=== PATIENT | male | born 1955 | race Caucasian/White ===

== ENCOUNTER 2016-11-09 13:03 | Emergency (ER) | payer OTHER ==
[~2016-11-09] VITALS: Ht 177.8 cm; Wt 113.4 kg
[~2016-11-09 13:03] MED LIST: ADVAIR 250/501 EA PO; ANAPROX DS550 MG PO; ASPIRIN81 M1 PO; ATENOLOL50 MG PO; ATIVAN1 MG PO; CARDIZEM CD240 MG PO; CIPRO500 MG PO; CLINDAMYCIN150 MG PO; DELTASONE5 MG PO; DILTIAZEM 24HR360 MG PO; DULE1ARO1 INH; DULERA100 INH; EFFIENT10 M1 PO; FLONASE 0.05% 121 EA NAS; HYDROCODONE BIT1 T11 PO; KEFLEX500 MG PO; LASIX40 MG PO; LEXAPRO10 MG PO; LEXAPRO20 MG PO; NEXIUM40 MG PO; NORCO 7.5-3251 EACH PO; PLAVIX75 M1 PO; PRAVACHOL80 M1 PO; QUINAPRIL40 MG PO; RANEXA500 M1 PO; SYMBICORT1 AE1 INH; TOPROL XL50 M1 PO; VENTOLIN H0.09 MG/AC INH; VICO75300 PO; VICODIN ES 7.51 EACH PO; ZITHROMAX Z PA250 MG PO
[2016-11-09 13:26] LABS: BASO # 0.1 10*3/uL (0.0-0.1); BASO % 1.1 % (0.0-1.0); EOS # 0.2 10*3/uL (0.0-0.4); EOS % 3.8 % (1.0-4.0); HEMATOCRIT 37.4 % (42.0-52.0); HEMOGLOBIN 12.4 g/dl (14.0-18.0); LYMPH # 2.1 10*3/uL (1.3-4.4); LYMPH % 34.1 % (27.0-41.0); MEAN CELL VOLUME 92.8 fl (80.0-94.0); MEAN CORPUSCULAR HGB 30.8 pg (27.0-31.0); MEAN CORPUSCULAR HGB CONC 33.2 g/dl (33.0-37.0); MONO # 0.4 10*3/uL (0.1-1.0); MONO % 6.7 % (3.0-9.0); NEUT # 3.4 10*3/uL (2.3-7.9); NEUT % 53.7 % (47.0-73.0); PLATELET COUNT AUTOMATED 258 10*3/uL (130-400); RED BLOOD COUNT 4.03 10*6/uL (4.50-5.90); RED CELL DISTRI WIDTH 13.3 % (0-14.5); WHITE BLOOD COUNT 6.3 10*3/uL (4.8-10.8)
[2016-11-09 13:35] LABS: INTERNATIONAL NORM RATIO 0.9 (2.0-3.5); PROTHROMBIN TIME 9.9 SECONDS (9.0-12.4)
[2016-11-09 13:37] LABS: BUN 27 mg/dl (7-24); CARBON DIOXIDE 28 mmol/L (21-32); CHLORIDE 105 mmol/L (98-107); EST GLOM FILT AFRICAN AMERICAN > 60 ml/min; GLUCOSE 201 mg/dL (65-99); POTASSIUM 3.6 mmol/L (3.5-5.1); SODIUM 142 mmol/L (136-145)
[2016-11-09 14:14] VITALS: BP 118/71
== END 2016-11-09 16:20 | disposition short-term general hospital (02) ==
LOC: ED 13:03
PROVIDERS: Emergency Medicine
DX: S06.5X0A Traumatic subdural hemorrhage without loss of consciousness, initial encounter (principal); S01.01XA Laceration without foreign body of scalp, initial encounter; I25.10 Atherosclerotic heart disease of native coronary artery without angina pectoris; I50.9 Heart failure, unspecified; J44.9 Chronic obstructive pulmonary disease, unspecified; J45.909 Unspecified asthma, uncomplicated; G93.41 Metabolic encephalopathy; W18.39XA Other fall on same level, initial encounter; Z88.0 Allergy status to penicillin; Z88.6 Allergy status to analgesic agent; Z88.1 Allergy status to other antibiotic agents; Z79.82 Long term (current) use of aspirin; Z79.899 Other long term (current) drug therapy; Y93.89 Activity, other specified; Y92.89 Other specified places as the place of occurrence of the external cause; Y99.8 Other external cause status

== ENCOUNTER 2016-12-27 13:17 | Inpatient (IN) | payer OTHER ==
[~2016-12-27] VITALS: Ht 177.8 cm; Wt 114.1 kg
--- NOTE | ~2016-12-27 | CON ---
[place], [place] REPORT OF CONSULTATION NAME: MARKBIMAL Godoy UNIT #: [id number] ROOM: [facility] DOCTOR: CASSIE RICHMOND MD, FACC BIRTHDATE: [birth year] DOS: 12/27/2016 CARDIOLOGY CONSULTATION HISTORY OF PRESENT ILLNESS: The patient went to Dr. Koroma' office with progressive increasing recurrent chest pain for more than 10 days, and the patient has a history of coronary artery disease, coronary intervention; hypertension with stage 2 to stage 3 chronic kidney disease, and started IV fluids on him, and the patient appears to have non-Q-wave myocardial infarction with progressive increase in troponin marginally and angina occurred even this morning. The patient is optimally medicated, and the patient has history of myocardial infarction in the past, coronary intervention and troponin 0.182, repeat also is elevated. No syncope, no history of stroke. PHYSICAL EXAMINATION: VITAL SIGNS: The patient is afebrile. Blood pressure is 138/86, respiratory rate is 16, pulse is 86. GENERAL: Ambulating well. No chest discomfort at this time. He appears to be stabilized. Skin warm, not diaphoretic. NECK: No jugular venous distension. Neck is supple. LUNGS: Diminished breath sounds at bases. HEART: S1, S2 regular. ABDOMEN: Soft. SKIN: Color is good. Not diaphoretic. EXTREMITIES: No cyanosis. NEUROLOGIC: No focal neurological deficits noted. RECTAL AND GENITAL: Deferred. Unrelated. LABORATORY DATA: WBC , hemoglobin 14.3. Electrolytes are normal. Creatinine is 1.54, BUN is 25. GFR is 46, moderately diminished. Troponin is still remaining high. IMPRESSION: Crescendo angina, non-ST elevation myocardial infarction, chronic kidney disease. PLAN: Coronary arteriography, possible revascularization. Start the IV fluids and the patient to be on beta blocking agent and Plavix and baby aspirin and pravastatin. We will continue Mucomyst to reduce the contrast-induced nephropathy. Options, procedures, complications, morbidity, mortality, and risks were explained to the patient and the family. [place], [place] REPORT OF CONSULTATION NAME: BIMAL FLORES UNIT #: [id number] ROOM: [facility] DOCTOR: CASSIE RICHMOND MD, FACC BIRTHDATE: [birth year] CASSIE RICHMOND MD CM:CONSTR:REPORT OF CONSULTATION 27 12/30/161919 interface KEVIN KOROMA MD
--- NOTE | ~2016-12-27 | EKG ---
[place], [place] ELECTROCARDIOGRAM REPORT NAME: BIMAL FLORES UNIT #: [id number] ROOM: [facility] DOCTOR: YI ISIDRO [facility],CASSIE BIRTHDATE: [birth year] DOS: 12/27/2016 TIME: 1902 CONCLUSION: 1. Sinus tachycardia. 2. Left axis. 3. Otherwise, tracing appears to be unremarkable. CASSIE RICHMOND MD CM:EKGRPT:ELECTROCARDIOGRAM REPORT [id number] CASSIE RICHMOND MD [facility]
[2016-12-27 13:30] VITALS: BP 128/78; BP 130/94
[2016-12-27] MEDS ORDERED: AMBIEN10 M1 PO (14:36)
[2016-12-27] MEDS ORDERED: CLONIDINE HCL0.1 M1 PO (14:36)
[2016-12-27] MEDS ORDERED: ZESTRIL2.5 MG PO (14:37)
[2016-12-27] MEDS ORDERED: PLAVIX75 M1 PO (14:37)
[2016-12-27] MEDS ORDERED: AMARYL4 MG PO (14:37)
[2016-12-27 15:23] LABS: BASO # 0.1 10*3/uL (0.0-0.1); EOS # 0.1 10*3/uL (0.0-0.4); EOS % 1.9 % (1.0-4.0); HEMATOCRIT 42.8 % (42.0-52.0); HEMOGLOBIN 14.3 g/dl (14.0-18.0); LYMPH # 2.5 10*3/uL (1.3-4.4); LYMPH % 34.7 % (27.0-41.0); MEAN CELL VOLUME 92.4 fl (80.0-94.0); MEAN CORPUSCULAR HGB 30.9 pg (27.0-31.0); MEAN CORPUSCULAR HGB CONC 33.4 g/dl (33.0-37.0); MEAN PLATELET VOLUME 9.8 fl (9.6-12.3); MONO # 0.6 10*3/uL (0.1-1.0); MONO % 8.6 % (3.0-9.0); NEUT # 3.9 10*3/uL (2.3-7.9); NEUT % 53.7 % (47.0-73.0); PLATELET COUNT AUTOMATED 279 10*3/uL (130-400); RED BLOOD COUNT 4.63 10*6/uL (4.50-5.90); RED CELL DISTRI WIDTH 13.4 % (0-14.5); WHITE BLOOD COUNT 7.2 10*3/uL (4.8-10.8)
[2016-12-27 15:41] LABS: POTASSIUM 4.1 mmol/L (3.5-5.1)
[2016-12-27 15:42] LABS: TROPONIN I 0.178 ng/ml (<0.045)
[2016-12-27 16:00] VITALS: BP 138/86
[2016-12-27 17:47] LABS: BILIRUBIN NEGATIVE (NEGATIVE); BLOOD NEGATIVE (NEGATIVE); CLARITY CLEAR (CLEAR); COLOR YELLOW (YELLOW); GLUCOSE NEGATIVE (NEGATIVE); KETONE NEGATIVE (NEGATIVE); LEUKO ESTERASE NEGATIVE (NEGATIVE); NITRITE NEGATIVE (NEGATIVE); PROTEIN NEGATIVE (NEGATIVE); UROBILINOGEN 0.2 E.U./dl (0.2-1.0)
[2016-12-27 18:18] LABS: RBC 0-2 rbc/hpf (0-2); URINE REFLEX COMMENT NO (NO); WBC 0-2 wbc/hpf (0-5)
[2016-12-27 20:00] VITALS: BP 111/91
[2016-12-27 21:00] VITALS: BP 123/86
[2016-12-27 22:00] VITALS: BP 114/78
[2016-12-28] VITALS: BP 101/48
[2016-12-28 01:00] VITALS: BP 98/54
[2016-12-28 02:00] VITALS: BP 84/42
[2016-12-28 03:00] VITALS: BP 92/58
[2016-12-28 04:00] VITALS: BP 89/44
[2016-12-28 04:11] LABS: BASO # 0.1 10*3/uL (0.0-0.1); BASO % 0.8 % (0.0-1.0); EOS # 0.2 10*3/uL (0.0-0.4); EOS % 3.1 % (1.0-4.0); HEMATOCRIT 38.4 % (42.0-52.0); HEMOGLOBIN 12.6 g/dl (14.0-18.0); LYMPH # 2.7 10*3/uL (1.3-4.4); LYMPH % 36.2 % (27.0-41.0); MEAN CELL VOLUME 92.8 fl (80.0-94.0); MEAN CORPUSCULAR HGB 30.4 pg (27.0-31.0); MEAN CORPUSCULAR HGB CONC 32.8 g/dl (33.0-37.0); MEAN PLATELET VOLUME 9.4 fl (9.6-12.3); MONO # 0.7 10*3/uL (0.1-1.0); MONO % 9.2 % (3.0-9.0); NEUT # 3.7 10*3/uL (2.3-7.9); NEUT % 50.2 % (47.0-73.0); PLATELET COUNT AUTOMATED 234 10*3/uL (130-400); RED BLOOD COUNT 4.14 10*6/uL (4.50-5.90); RED CELL DISTRI WIDTH 13.5 % (0-14.5); WHITE BLOOD COUNT 7.4 10*3/uL (4.8-10.8)
[2016-12-28 04:20] LABS: PROTHROMBIN TIME 10.7 SECONDS (9.0-12.4)
[2016-12-28 04:22] LABS: MAGNESIUM 2.4 mg/dL (1.5-2.1); POTASSIUM 3.7 mmol/L (3.5-5.1)
[2016-12-28 05:00] VITALS: BP 132/89
== END 2016-12-28 05:34 | disposition other institution (70) | DRG 282 ==
LOC: 5E 13:17 → ICCU 21:10
PROVIDERS: Internal Medicine; Internal Medicine Cardiovascular Disease
DX: I21.4 Non-ST elevation (NSTEMI) myocardial infarction (principal); N18.3 Chronic kidney disease, stage 3 (moderate); I12.9 Hypertensive chronic kidney disease with stage 1 through stage 4 chronic kidney disease, or unspecified chronic kidney disease; I25.119 Atherosclerotic heart disease of native coronary artery with unspecified angina pectoris; I25.2 Old myocardial infarction; Z79.899 Other long term (current) drug therapy

== ENCOUNTER 2017-01-12 13:53 | Emergency (ER) | payer OTHER ==
[~2017-01-12] VITALS: Ht 177.8 cm; Wt 113.4 kg
--- NOTE | ~2017-01-12 | EKG ---
[place], [place] ELECTROCARDIOGRAM REPORT NAME: BIMAL FLORES UNIT #: [id number] ROOM: DOCTOR: YI ISIDRO [facility],CASSIE BIRTHDATE: [birth year] DOS: 01/12/2017 TIME: 1435 CONCLUSION 1. Sinus rhythm. 2. Left anterior hemiblock. 3. Nonspecific ST changes. CASSIE RICHMOND MD CM:EKGRPT:ELECTROCARDIOGRAM REPORT [id number] CASSIE RICHMOND MD [facility]
[~2017-01-12 13:53] MED LIST changes: +AMARYL4 MG PO; +AMBIEN10 M1 PO; +CLONIDINE HCL0.1 M1 PO; +ZESTRIL2.5 MG PO
[2017-01-12 14:33] LABS: BASO # 0.1 10*3/uL (0.0-0.1); EOS # 0.2 10*3/uL (0.0-0.4); LYMPH # 2.2 10*3/uL (1.3-4.4); LYMPH % 36.1 % (27.0-41.0); MEAN CELL VOLUME 90.7 fl (80.0-94.0); MEAN CORPUSCULAR HGB CONC 34.1 g/dl (33.0-37.0); MEAN PLATELET VOLUME 9.6 fl (9.6-12.3); MONO # 0.5 10*3/uL (0.1-1.0); MONO % 8.1 % (3.0-9.0); NEUT # 3.1 10*3/uL (2.3-7.9); NEUT % 51.6 % (47.0-73.0); PLATELET COUNT AUTOMATED 292 10*3/uL (130-400); RED BLOOD COUNT 4.52 10*6/uL (4.50-5.90)
[2017-01-12 14:42] LABS: ACT PARTIAL THROMBO TIME 21.6 SECONDS (20.8-31.5); INTERNATIONAL NORM RATIO 0.9 (2.0-3.5)
[2017-01-12 14:50] LABS: ALBUMIN 3.9 gm/dl (3.1-4.5); ALKALINE PHOSPHATASE 104 U/L (45-117); BUN 19 mg/dl (7-24); CHLORIDE 101 mmol/L (98-107); CREATININE 1.31 mg/dL (0.70-1.30); MAGNESIUM 2.4 mg/dL (1.5-2.1); POTASSIUM 3.9 mmol/L (3.5-5.1); SGOT/AST 20 IU/L (3-35); SGPT/ALT 31 U/L (12-78); SODIUM 137 mmol/L (136-145)
[2017-01-12 15:15] LABS: TROPONIN I 0.149 ng/ml (<0.045)
[2017-01-12 16:51] VITALS: BP 151/82
== END 2017-01-12 17:58 | disposition short-term general hospital (02) ==
LOC: ED 13:53
PROVIDERS: Student in an Organized Health Care Education/Training Program
DX: I21.4 Non-ST elevation (NSTEMI) myocardial infarction (principal); Z88.0 Allergy status to penicillin; Z88.6 Allergy status to analgesic agent; Z88.1 Allergy status to other antibiotic agents; Z79.899 Other long term (current) drug therapy; Z79.82 Long term (current) use of aspirin

== ENCOUNTER 2017-01-24 12:03 | Emergency (ER) | payer OTHER ==
[~2017-01-24] VITALS: Ht 177.8 cm; Wt 111.1 kg
[2017-01-24 12:31] VITALS: BP 144/92
[2017-01-24 13:17] LABS: BASO % 0.7 % (0.0-1.0); EOS # 0.2 10*3/uL (0.0-0.4); EOS % 2.9 % (1.0-4.0); HEMOGLOBIN 13.7 g/dl (14.0-18.0); LYMPH % 33.3 % (27.0-41.0); MEAN CELL VOLUME 90.5 fl (80.0-94.0); MEAN CORPUSCULAR HGB 30.2 pg (27.0-31.0); MEAN CORPUSCULAR HGB CONC 33.4 g/dl (33.0-37.0); MEAN PLATELET VOLUME 9.9 fl (9.6-12.3); MONO # 0.6 10*3/uL (0.1-1.0); MONO % 9.3 % (3.0-9.0); NEUT # 3.3 10*3/uL (2.3-7.9); NEUT % 53.5 % (47.0-73.0); PLATELET COUNT AUTOMATED 300 10*3/uL (130-400); RED BLOOD COUNT 4.53 10*6/uL (4.50-5.90); WHITE BLOOD COUNT 6.1 10*3/uL (4.8-10.8)
[2017-01-24 13:29] LABS: BUN 23 mg/dl (7-24); C-REACTIVE PROTEIN 0.79 MG/DL (0-0.3); CARBON DIOXIDE 23 mmol/L (21-32); CHLORIDE 101 mmol/L (98-107); EST GLOM FILT AFRICAN AMERICAN > 60 ml/min; GLUCOSE 116 mg/dL (65-99); POTASSIUM 3.5 mmol/L (3.5-5.1); SODIUM 136 mmol/L (136-145); URIC ACID 10.4 mg/dL (3.5-7.2)
== END 2017-01-24 17:01 | disposition home or self-care (01) ==
LOC: ED 12:03
PROVIDERS: Emergency Medicine
DX: M10.9 Gout, unspecified (principal); E79.0 Hyperuricemia without signs of inflammatory arthritis and tophaceous disease; J45.909 Unspecified asthma, uncomplicated; I25.10 Atherosclerotic heart disease of native coronary artery without angina pectoris; I50.9 Heart failure, unspecified; J44.9 Chronic obstructive pulmonary disease, unspecified; Z79.82 Long term (current) use of aspirin; Z79.899 Other long term (current) drug therapy; Z88.0 Allergy status to penicillin; Z88.1 Allergy status to other antibiotic agents; Z88.6 Allergy status to analgesic agent

== ENCOUNTER 2017-02-21 14:00 | Inpatient (IN) | payer OTHER ==
[2017-02-21] VITALS (10 sets, daily range): BP systolic 80–183; BP diastolic 40–108
[~2017-02-21] VITALS: Wt 117.1 kg
--- NOTE | ~2017-02-21 | PR ---
[place], [place] PROGRESS NOTE NAME: BIMAL FLORES [facility] #: [id number] UNIT #: [id number] ROOM: 516 DOCTOR: KEVIN BALLESTEROS MD BIRTHDATE: [birth year] DOS: SUBJECTIVE: The patient is doing much better, does not have any new complaints. His pleuritic symptoms have all resolved. OBJECTIVE: VITAL SIGNS: Blood pressure is 152/82, pulse of 93, respirations 20, temperature 97.7. LUNGS: Clear. HEART: Regular. ABDOMEN: Soft, nontender. EXTREMITIES: Without any edema. ASSESSMENT AND PLAN: 1. Acute exacerbation of chronic obstructive pulmonary disease, improved and stable. We will plan to discharge the patient to home on p.o. steroids and antibiotics. 2. Coronary artery disease with slight elevation in troponins. Dr. Figueroa was informed. He was not concerned about it and did not want any further investigations performed. 3. Benign hypertension, controlled. KEVIN BALLESTEROS MD CM:PNTRANS [id number] KEVIN BALLESTEROS MD 02/23/17 1008 interface
--- NOTE | ~2017-02-21 | WRIGHTHP ---
[place], [place] PATIENT HISTORY AND PHYSICAL EXAM NAME: BIMAL FLORES [facility] #: [id number] UNIT #: [id number] ROOM: 516 DOCTOR: KEVIN BALLESTEROS MD BIRTHDATE: [birth year] DOS: 02/21/2017 HISTORY OF PRESENT ILLNESS: This patient comes in with complaints of shortness of breath and chest pain. States that he had runny nose, sinus congestion few days ago. He got a prescription for Z-NATI. He was getting better, but then developed diarrhea after the second dose and started having some increasing shortness of breath and also developed some pain when he took a deep breath, so he got worried because of his history of heart disease and decided to come into the emergency room. He denies having any fever, any chills, any recent sternal chest pains, but he did have some neck pain and jaw pain. PAST MEDICAL HISTORY: Significant for; 1. Coronary artery disease with history of stent placement. 2. History of chronic kidney disease stage 3. 3. Benign hypertension. 4. History of AICD pacemaker placement. 5. Mixed hyperlipidemia. 6. Generalized anxiety disorder. 7. Chronic low back pain. MEDICATIONS: Symbicort 160 twice a day, aspirin 81 daily, clonidine 0.1 daily, Lexapro 30 daily, Lasix 60 daily, glimepiride 4 daily, lisinopril 2.5 daily, lorazepam 1 mg q.i.d., metoprolol 50 b.i.d., potassium 20 daily, Pravachol 40 daily, Ranexa 1000 b.i.d., Brilinta 90 b.i.d., zolpidem 10 at bedtime. SOCIAL HISTORY: History of smoking about 40 years ago. PHYSICAL EXAMINATION: GENERAL: The patient is awake and alert and oriented. VITAL SIGNS: Blood pressure is 157/77, pulse of 98, respirations 20, temperature 98.2. LUNGS: Diminished breath sounds. HEART: Regular. ABDOMEN: Obese, soft, nontender. EXTREMITIES: Without any edema. ASSESSMENT AND PLAN: 1. Acute exacerbation of chronic obstructive pulmonary disease with pleuritic complaints. The patient has been admitted. IV steroids and breathing treatments and antibiotics have been ordered for acute bronchitis, 2. Coronary artery disease with slight elevation in troponin noted. Dr. Figueroa has been consulted. He was informed about the patient being admitted here yesterday. 3. Chronic renal insufficiency stage 3. Continue close followup of his kidney functions. [place], [place] PATIENT HISTORY AND PHYSICAL EXAM NAME: BIMAL FLORES Walt UNIT #: [id number] ROOM: [facility] DOCTOR: KEVIN BALLESTEROS MD BIRTHDATE: [birth year] KEVIN BALLESTEROS MD CM:HISPHYS:PATIENT HISTORY AND PHYSICAL EXAMINATION 5 4 KEVIN BALLESTEROS MD 02/22/17944 interface
--- NOTE | ~2017-02-21 | DS ---
[place], [place] DISCHARGE SUMMARY NAME: [facility]ES [id number] UNIT #: [id number] ROOM: 516 DOCTOR: KEVIN BALLESTEROS MD BIRTHDATE: [birth year] DOS: 02/23/2017 DIAGNOSES: 1. Acute exacerbation of chronic obstructive pulmonary disease. 2. Acute tracheobronchitis. 3. Elevated troponin. 4. Hypotension following nitroglycerin in the Emergency Room. 5. History of coronary artery disease. 6. History of stent placement. 7. Generalized anxiety disorder. DISCHARGE MEDICATIONS: Will be tapering dose of prednisone and doxycycline 100 b.i.d., Symbicort 160 two puffs twice daily, metoprolol 50 b.i.d., Ranexa 1000 b.i.d., aspirin 81 daily, Pravachol 40 daily, Ventolin HFA p.r.n., Lexapro 30 daily, Ativan 1 mg q.i.d. p.r.n., Lasix 40 daily, clonidine 0.1 daily, zolpidem 10 at bedtime p.r.n., glimepiride 4 mg daily, lisinopril 2.5 daily, Brilinta 90 b.i.d., potassium 20 daily. HOSPITAL COURSE: The patient is 62 years old, very well known to us complains of pleuritic complaints, cough and shortness of breath. Please see H and P for details. After admission, the patient was placed on IV steroids, breathing treatments, antibiotics. Cough and shortness of breath has improved. He did have slight elevation of CPKs, Dr. Figueroa was notified. He did not order any further treatment or suggest any further medication changes. The patient has had no complaints since admission. Since the bronchospasm has resolved, the plan is to discharge him to home today to follow up as an outpatient. KEVIN BALLESTEROS MD CM:DISCHARG [id number] KEVIN BALLESTEROS MD 02/23/17 1005 interface
[2017-02-21 14:26] LABS: BASO # 0.1 10*3/uL (0.0-0.1); BASO % 0.8 % (0.0-1.0); EOS # 0.2 10*3/uL (0.0-0.4); EOS % 2.9 % (1.0-4.0); HEMATOCRIT 42.1 % (42.0-52.0); HEMOGLOBIN 14.2 g/dl (14.0-18.0); LYMPH # 2.1 10*3/uL (1.3-4.4); MEAN CELL VOLUME 91.7 fl (80.0-94.0); MEAN CORPUSCULAR HGB 30.9 pg (27.0-31.0); MEAN CORPUSCULAR HGB CONC 33.7 g/dl (33.0-37.0); MEAN PLATELET VOLUME 9.4 fl (9.6-12.3); MONO # 0.5 10*3/uL (0.1-1.0); NEUT # 3.8 10*3/uL (2.3-7.9); PLATELET COUNT AUTOMATED 274 10*3/uL (130-400); RED BLOOD COUNT 4.59 10*6/uL (4.50-5.90); RED CELL DISTRI WIDTH 13.1 % (0-14.5); WHITE BLOOD COUNT 6.6 10*3/uL (4.8-10.8)
[2017-02-21 14:37] LABS: ACT PARTIAL THROMBO TIME 21.4 SECONDS (20.8-31.5)
--- NOTE | 2017-02-21 14:40 | NUR ---
SOON AFTER ADMINISTRATION OF NTG SL, PT'S BP DROPPED SIGNIOFICANTLY AND PT DEVLOPED PALLOR AND DIAPHORESIS AND NAUSEA. INITIAL BP SYSTOLIC WAS 180 MANUALLY AND DROPPED TO 80. BOLUS SALINE AND ZOFRAN ORDERED. BP RETURNS TO 110 SYSTOLIC NOW.
[2017-02-21 14:47] LABS: ALBUMIN 3.7 gm/dl (3.1-4.5); ALKALINE PHOSPHATASE 119 U/L (45-117); BUN 14 mg/dl (7-24); CHLORIDE 104 mmol/L (98-107); CKMB 1.2 ng/ml (0.5-3.6); CPK 99 U/L (39-308); LIPASE 174 U/L (73-393); MAGNESIUM 2.3 mg/dL (1.5-2.1); POTASSIUM 3.7 mmol/L (3.5-5.1); SGOT/AST 22 IU/L (3-35); SGPT/ALT 34 U/L (12-78); SODIUM 138 mmol/L (136-145); TOTAL PROTEIN 7.8 gm/dL (6.4-8.2)
[2017-02-21 14:52] LABS: TROPONIN I 0.341 ng/ml (<0.045)
--- NOTE | 2017-02-21 15:05 | NUR ---
PT FEELS MUCH BETTER NOW, SYSTOLIC BP 140. OTHER SYMTPKS RESOLVED.
--- NOTE | 2017-02-21 15:27 | NUR ---
PT EXPRESSES HE JUST HAD 5 MINUTES OF SHARP MIDSTERNAL PAIN, NO RESOLVED. HE DID NOT WISH TO ALERT ANYONE. THIRD REPEAT EKG NOW ORDERED.
--- NOTE | 2017-02-21 16:50 | NUR ---
A 62, admitted to 5E, under the services of KEVIN Sandoval MD with a diagnosis of COPD WITH ACUTE EXACERBATION. Chief complaint is CHEST PAIN AND SOB. Patient arrived via stretcher from ER. Monitor applied. Initial assessment completed. Vital signs taken and recorded. KEVIN SANDOVAL MD notified of admission to the unit. Orders received. See assessment for past medical history, medications and allergies. Patient and/or family oriented to unit [facility] 5E. visitation policy and Medication Reconciliation was reviewed with patient, patients and [facility]. Clothing/patient valuable form completed. KIM PEREZ
[2017-02-21] MEDS ORDERED: BRILINTA60 MG PO (17:31)
[2017-02-21] MEDS ORDERED: COREG12.5 M1 PO (18:04)
[2017-02-21] MEDS ORDERED: POTASSIUM CHLO20 MEQ PO (18:16)
--- NOTE | 2017-02-21 18:23 | NUR ---
Message left on Dr. Koroma's cell phone regarding patients arrival to unit and med rec was completed.
--- NOTE | 2017-02-21 20:05 | NUR ---
CALLED DR. RICHMOND AND NOTIFIED HIM OF CONSULT AND ELEVATED CRITICAL TROPONIN 0.317 AND PT. CONDITION/MEDS. ORDERS RECEIVED.
[2017-02-21 20:37] LABS: BUN 15 mg/dl (7-24); CHLORIDE 105 mmol/L (98-107); CREATININE 1.34 mg/dL (0.70-1.30); POTASSIUM 4.1 mmol/L (3.5-5.1); SODIUM 137 mmol/L (136-145)
--- NOTE | 2017-02-21 22:37 | NUR ---
called and spoke with Dr. Figueroa about die cutter diamond. level and another critical troponin level and no new orders received except that Dr. Melara with by here tomorrow to see patient called in pt. becomes symptomatic.
[2017-02-22] VITALS: BP 101/61
--- NOTE | 2017-02-22 05:25 | NUR ---
ATIVAN GIVEN PER ORDER FOR ANXIETY PER PT. REQUEST. PT. STATED " I HAD A BREATHING TREATMENT AND IT MAKES ME ALL SHAKEY.". PT. DENIES HAVING ANY CHEST PAIN THROUGHTOUT THE ENTIRE SHIFT.
--- NOTE | 2017-02-22 05:34 | NUR ---
NO C/O CHEST PAIN OR DIZZINESS. PT. ALERT AND PLEASANT.
--- NOTE | 2017-02-22 07:30 | NUR ---
Wool Puller in to talk to patient. Patient states lives at [address] with HIS . There are 13 steps in the home. Physician: DR BALLESTEROS Pharmacy: [facility] health services: NONE Patient's level of ADLs: INDEPENDENT Patient has working utilities: YES DME: NONE Follow-up physician's appointment after d/c: PREFERS TO MAKE HIS OWN APPT Does patient want to access PORTAL?: Discharge plan HOME. MIKEY LOPEZ
[2017-02-22 08:00] VITALS: BP 157/77
--- NOTE | 2017-02-22 11:26 | NUR ---
PATIENT MEDICATED WITH ATIVAN AT THIS TIME PER PRN ORDER FOR ANXIETY. WILL MONITOR.
[2017-02-22 12:00] VITALS: BP 131/68
[2017-02-22 16:00] VITALS: BP 117/62
[2017-02-22 20:00] VITALS: BP 143/72
--- NOTE | 2017-02-22 23:03 | NUR ---
Medicated with Ambien po prn and Ativan po prn for help with sleep and anxiety. Will monitor effectiveness. Call light within reach.
[2017-02-23] VITALS: BP 153/88
--- NOTE | 2017-02-23 | NUR ---
Patient resting quietly in bed with eyes closed. Rosa Elena and Estuardo effective. Will continue to monitor. Call light within reach.
--- NOTE | 2017-02-23 00:38 | NUR ---
24 HR chart check completed.
[2017-02-23 08:00] VITALS: BP 152/82
[2017-02-23] MEDS ORDERED: CEFUROXIME AXE250 MG PO (08:37)
[2017-02-23] MEDS ORDERED: PREDNISONE5 MG PO (08:37)
[2017-02-23] MEDS ORDERED: DOXYCYCLINE100 M3 PO (08:39)
--- NOTE | 2017-02-23 09:20 | NUR ---
Pt states that ativan given earlier was effective.
--- NOTE | 2017-02-23 10:30 | NUR ---
Pt states that he has an appointment with Dr. Figueroa already scheduled for tomorrow.
--- NOTE | 2017-02-23 10:35 | NUR ---
Discharge instructions reviewed with patient. Patient receptive and verbalizes understanding. Follow-up care arranged. Written instructions given to patient. Pt is waiting on to pick him up.
--- NOTE | 2017-02-23 10:53 | NUR ---
Pt discharged via wheelchair with belongings and dc instructions.
== END 2017-02-23 10:53 | disposition home or self-care (01) | DRG 191 ==
LOC: ED 14:00 → EDHOLD 16:06 → 5E 16:06
PROVIDERS: Emergency Medicine; Internal Medicine Cardiovascular Disease; ADMIT Internal Medicine
DX: J44.1 Chronic obstructive pulmonary disease with (acute) exacerbation (principal); I13.0 Hypertensive heart and chronic kidney disease with heart failure and stage 1 through stage 4 chronic kidney disease, or unspecified chronic kidney disease; I50.9 Heart failure, unspecified; E11.22 Type 2 diabetes mellitus with diabetic chronic kidney disease; I95.9 Hypotension, unspecified; I25.10 Atherosclerotic heart disease of native coronary artery without angina pectoris; N18.3 Chronic kidney disease, stage 3 (moderate); E78.2 Mixed hyperlipidemia; F41.1 Generalized anxiety disorder; M54.5 Low back pain; G89.29 Other chronic pain; J44.0 Chronic obstructive pulmonary disease with (acute) lower respiratory infection; J20.9 Acute bronchitis, unspecified; I25.2 Old myocardial infarction; Z98.61 Coronary angioplasty status; Z95.0 Presence of cardiac pacemaker; Z88.0 Allergy status to penicillin; Z88.1 Allergy status to other antibiotic agents; Z88.8 Allergy status to other drugs, medicaments and biological substances; Z79.82 Long term (current) use of aspirin; Z79.899 Other long term (current) drug therapy; Z91.81 History of falling; Z82.49 Family history of ischemic heart disease and other diseases of the circulatory system; Z83.3 Family history of diabetes mellitus

== ENCOUNTER 2017-06-10 10:08 | Emergency (ER) | payer OTHER ==
[~2017-06-10] VITALS: Ht 177.8 cm; Wt 113.4 kg
[~2017-06-10 10:08] MED LIST changes: +BRILINTA60 MG PO; +CEFUROXIME AXE250 MG PO; +COREG12.5 M1 PO; +DOXYCYCLINE100 M3 PO; +POTASSIUM CHLO20 MEQ PO; +PREDNISONE5 MG PO
[2017-06-10 10:51] LABS: BASO # 0.1 10*3/uL (0.0-0.1); BASO % 0.5 % (0.0-1.0); EOS # 0.2 10*3/uL (0.0-0.4); EOS % 1.9 % (1.0-4.0); HEMATOCRIT 39.5 % (42.0-52.0); HEMOGLOBIN 13.3 g/dl (14.0-18.0); LYMPH # 1.6 10*3/uL (1.3-4.4); LYMPH % 16.8 % (27.0-41.0); MEAN CELL VOLUME 91.4 fl (80.0-94.0); MEAN CORPUSCULAR HGB 30.8 pg (27.0-31.0); MEAN CORPUSCULAR HGB CONC 33.7 g/dl (33.0-37.0); MEAN PLATELET VOLUME 9.7 fl (9.6-12.3); MONO # 0.7 10*3/uL (0.1-1.0); MONO % 7.3 % (3.0-9.0); NEUT # 7.1 10*3/uL (2.3-7.9); PLATELET COUNT AUTOMATED 306 10*3/uL (130-400); RED BLOOD COUNT 4.32 10*6/uL (4.50-5.90); RED CELL DISTRI WIDTH 12.8 % (0-14.5); WHITE BLOOD COUNT 9.7 10*3/uL (4.8-10.8)
[2017-06-10 11:00] LABS: ACT PARTIAL THROMBO TIME 21.3 SECONDS (20.8-31.5); INTERNATIONAL NORM RATIO 0.9 (2.0-3.5)
[2017-06-10 11:09] LABS: ALBUMIN 3.7 gm/dl (3.1-4.5); ALKALINE PHOSPHATASE 120 U/L (45-117); BUN 15 mg/dl (7-24); CHLORIDE 101 mmol/L (98-107); CREATININE 1.23 mg/dL (0.70-1.30); SGOT/AST 16 IU/L (3-35); SGPT/ALT 33 U/L (12-78); SODIUM 137 mmol/L (136-145); TOTAL PROTEIN 7.5 gm/dL (6.4-8.2)
[2017-06-10 11:11] LABS: TROPONIN I 0.301 ng/ml (<0.045)
[2017-06-10 11:24] VITALS: BP 118/76
== END 2017-06-10 12:09 | disposition short-term general hospital (02) ==
LOC: ED 10:08
PROVIDERS: Nurse Practitioner Family
DX: I21.4 Non-ST elevation (NSTEMI) myocardial infarction (principal); F10.10 Alcohol abuse, uncomplicated; Z88.0 Allergy status to penicillin; Z88.8 Allergy status to other drugs, medicaments and biological substances; Z88.1 Allergy status to other antibiotic agents; Z79.82 Long term (current) use of aspirin; Z79.899 Other long term (current) drug therapy

== ENCOUNTER 2017-06-14 12:39 | Inpatient (IN) | payer OTHER ==
[~2017-06-14] VITALS: Ht 177.8 cm; Wt 113.2 kg
--- NOTE | ~2017-06-14 | PR ---
[place], [place] PROGRESS NOTE [id number] UN[facility] #: [id number] ROOM: 503 DOCTOR: KEVIN BALLESTEROS MD BIRTHDATE: [birth year] DOS: SUBJECTIVE: The patient is resting comfortably, states that he had a good night sleep. He had ordered 2 breakfast trays this morning. OBJECTIVE: VITAL SIGNS: Blood pressure is 142/84, pulse of 88, respirations 20, temperature 97.8. LUNGS: Diminished breath sounds, clear. HEART: Regular. ABDOMEN: Obese, soft, nontender. EXTREMITIES: Without any edema. ASSESSMENT AND PLAN: 1. Acute exacerbation of chronic obstructive pulmonary disease, improving. We will taper the steroids down. 2. Acute tracheobronchitis. CT of the chest done showed presence of atelectasis, airspace disease, possibly underlying pneumonia with air plugging. The patient continues to improve with less cough. We will repeat a CT scan as an outpatient in a few days. The plan is now to discharge him to home tomorrow. KEVIN BALLESTEROS MD CM:PNTRANS [phone] KEVIN BALLESTEROS MD 06/16/171845 interface
--- NOTE | ~2017-06-14 | WRIGHTHP ---
[place], [place] PATIENT HISTORY AND PHYSICAL EXAM [id number] #: [id number] ROOM: 503 DOCTOR: KEVIN BALLESTEROS MD BIRTHDATE: [birth year] DOS: 06/14/2017 HISTORY OF PRESENT ILLNESS: The patient is very well known to us. The patient was seen in the Emergency Room on Tuesday with complaints of shortness of breath and cough. On evaluation in the ER, troponin was elevated. Dr. Figueroa was called and advised transfer to [place]. He was sent to [place] and had a cardiac catheterization, which did not show any worsening of his coronary artery disease, no stenting was offered. The patient was discharged to home, continued to cough and have increasing shortness of breath, so was brought to the office yesterday. He denied having any chest pains, palpitations as a cough which is productive of scant amounts of sputum. Does not have any fever or chills. He is quite short of breath. PAST MEDICAL HISTORY: Significant for; 1. History of stent placement with a cardiac cath on Tuesday, which was negative. 2. COPD. 3. Generalized anxiety disorder. 4. Benign hypertension. 5. Mixed hyperlipidemia. 6. Type 2 diabetes mellitus, non-insulin dependent. MEDICATIONS: On admission are Ventolin 2 puffs q.6 h. p.r.n., Symbicort 2 puffs twice a day, aspirin 81, Coreg 2.5 b.i.d., clonidine 0.1 daily, Lexapro 30 daily, Lasix 60 daily, glimepiride 4 mg daily, lisinopril 2.5 daily, lorazepam 1 mg q.i.d., potassium 20 daily, pravastatin 40 daily, Ranexa 1000 mg twice daily, Brilinta 90 mg b.i.d. and zolpidem 10 at bedtime. SOCIAL HISTORY: Nonsmoker. He was a smoker many years ago. Denies using any alcohol. PHYSICAL EXAMINATION: GENERAL: Awake, alert and oriented. VITAL SIGNS: Blood pressure is 122/77, pulse of 106, respirations 20 and temperature 97.8. LUNGS: Diminished breath sounds, scattered wheezes and rhonchi heard. HEART: Regular. ABDOMEN: Obese. EXTREMITIES: Without any edema. ASSESSMENT AND PLAN: 1. Acute exacerbation of chronic obstructive pulmonary disease. The patient has been admitted. Intravenous steroids and intravenous antibiotics have been ordered. CT of the chest will be ordered also. 2. Acute tracheobronchitis. Chest CT to be ordered to rule out underlying pneumonia. 3. Coronary artery disease, stable without any problems especially since he had a negative cardiac catheterization just a few days ago. 4. Acute respiratory distress syndrome. Continue oxygen supplementation. Blood cultures done recently showed no bacterial growth. [place], [place] PATIENT HISTORY AND PHYSICAL EXAM NAME: BIMAL FLORES UNIT #: [id number] ROOM: [facility] DOCTOR: KEVIN BALLESTEROS MD BIRTHDATE: [birth year] KEVIN BALLESTEROS MD CM:HISPHYS:PATIENT HISTORY AND PHYSICAL EXAMINATION 7 KEVIN BALLESTEROS MD 06/15/17937 interface
--- NOTE | ~2017-06-14 | DS ---
[place], [place] DISCHARGE SUMMARY [id number] UNIT #: [id number] ROOM: 503 DOCTOR: KEVIN BALLESTEROS MD BIRTHDATE: [birth year] DOS: 06/17/2017 DIAGNOSES: 1. Bilateral lower lobe pneumonia with atelectasis. 2. Acute exacerbation of chronic obstructive pulmonary disease. 3. Recent negative cardiac catheterization. 4. Generalized anxiety disorder. 5. Coronary artery disease. 6. Benign hypertension. 7. Mixed hyperlipidemia. 8. Type 2 diabetes mellitus, non-insulin dependent. MEDICATIONS ON DISCHARGE: Will be Cipro 500 mg twice a day for 7 days. HOSPITAL COURSE: This patient is 62-year-old, very well known to us, comes in with complaints of difficulty breathing, cough. Please refer to H and P for details. The patient was admitted. A chest x-ray done showed bilateral pneumonia with atelectasis. The patient was started on IV steroids for the bronchospasm and exacerbation of COPD and IV antibiotics for the pneumonia. The patient has improved, the bronchospasm has resolved. His oxygen levels are stable. Blood culture shows no bacterial growth. Elevated white cell count was most likely from steroid effect. The patient's blood sugars have been slightly on the high side because of the steroids. The patient is overall stable and improved today. The plan is to discharge him to home. Follow up as an outpatient. DISCHARGE MEDICATIONS: Will be the same as home medication. The only new prescription will be Cipro 500 twice a day for 7 days. KEVIN BALLESTEROS MD CM:MARGAUX [id number] KEVIN BALLESTEROS MD 06/17/17 1936 interface
--- NOTE | ~2017-06-14 | PR ---
[place], [place] PROGRESS NOTE [id number] UNIT #: [id number] ROOM: 503 DOCTOR: KEVIN BALLESTEROS MD BIRTHDATE: [birth year] DOS: SUBJECTIVE: The patient is doing fine without any complaints. OBJECTIVE EXAMINATION: GENERAL: The patient is awake and alert and oriented. VITAL SIGNS: Blood pressure is 152/83, pulse of 90, respirations 18, temperature 98.0. LUNGS: Clear. HEART: Regular. ABDOMEN: Obese, soft, nontender. EXTREMITIES: Without any edema. LABORATORY DATA: White cell count was elevated at 18.1, hemoglobin and hematocrit were normal. Blood culture shows no bacterial growth. ASSESSMENT AND PLAN: 1. The patient with bilateral lower lobe pneumonia with atelectasis. The patient is clinically much improved. Repeat chest x-ray is negative. The plan is to discharge him to home and have a repeat CT scan as an outpatient. 2. Elevated white cell count, most likely from the steroid effect, with negative blood cultures. The patient can be discharged on p.o. antibiotics and steroids. KEVIN BALLESTEROS MD CM:PNTRANS [phone] KEVIN BALLESTEROS MD 06/17/17927 interface
[2017-06-14 13:00] VITALS: BP 144/76
[2017-06-14 15:44] LABS: BASO # 0.1 10*3/uL (0.0-0.1); BASO % 0.4 % (0.0-1.0); EOS # 0.1 10*3/uL (0.0-0.4); HEMATOCRIT 38.4 % (42.0-52.0); HEMOGLOBIN 12.7 g/dl (14.0-18.0); LYMPH # 2.5 10*3/uL (1.3-4.4); LYMPH % 21.6 % (27.0-41.0); MEAN CELL VOLUME 92.5 fl (80.0-94.0); MEAN CORPUSCULAR HGB 30.6 pg (27.0-31.0); MEAN CORPUSCULAR HGB CONC 33.1 g/dl (33.0-37.0); MONO % 8.3 % (3.0-9.0); NEUT # 7.9 10*3/uL (2.3-7.9); NEUT % 68.3 % (47.0-73.0); PLATELET COUNT AUTOMATED 284 10*3/uL (130-400); RED BLOOD COUNT 4.15 10*6/uL (4.50-5.90); WHITE BLOOD COUNT 11.5 10*3/uL (4.8-10.8)
[2017-06-14 16:00] VITALS: BP 128/75
[2017-06-14 16:02] LABS: ALBUMIN 3.3 gm/dl (3.1-4.5); ALKALINE PHOSPHATASE 122 U/L (45-117); BUN 19 mg/dl (7-24); CHLORIDE 102 mmol/L (98-107); CREATININE 1.28 mg/dL (0.70-1.30); POTASSIUM 3.9 mmol/L (3.5-5.1); SGOT/AST 22 IU/L (3-35); SGPT/ALT 36 U/L (12-78); SODIUM 137 mmol/L (136-145); TOTAL PROTEIN 7.1 gm/dL (6.4-8.2)
[2017-06-14 20:00] VITALS: BP 154/74
[2017-06-15] VITALS: BP 122/77
[2017-06-15 07:07] LABS: BASO % 0.1 % (0.0-1.0); HEMATOCRIT 38.5 % (42.0-52.0); LYMPH # 1.8 10*3/uL (1.3-4.4); LYMPH % 11.6 % (27.0-41.0); MEAN CELL VOLUME 91.7 fl (80.0-94.0); MEAN CORPUSCULAR HGB CONC 33.8 g/dl (33.0-37.0); MEAN PLATELET VOLUME 10.4 fl (9.6-12.3); MONO # 0.4 10*3/uL (0.1-1.0); MONO % 2.5 % (3.0-9.0); NEUT # 13.2 10*3/uL (2.3-7.9); PLATELET COUNT AUTOMATED 320 10*3/uL (130-400); RED CELL DISTRI WIDTH 12.8 % (0-14.5); WHITE BLOOD COUNT 15.5 10*3/uL (4.8-10.8)
[2017-06-15 07:34] LABS: ALBUMIN 3.4 gm/dl (3.1-4.5); BUN 19 mg/dl (7-24); CHLORIDE 98 mmol/L (98-107); CREATININE 1.18 mg/dL (0.70-1.30); POTASSIUM 4.2 mmol/L (3.5-5.1); SGOT/AST 20 IU/L (3-35); SGPT/ALT 34 U/L (12-78); SODIUM 132 mmol/L (136-145)
[2017-06-15 07:36] LABS: ALKALINE PHOSPHATASE 126 U/L (45-117); TOTAL PROTEIN 7.5 gm/dL (6.4-8.2)
[2017-06-15 09:00] VITALS: BP 111/50
[2017-06-15 12:00] VITALS: BP 143/82
[2017-06-15 16:00] VITALS: BP 150/88
[2017-06-15 20:00] VITALS: BP 148/77
[2017-06-16] VITALS: BP 142/84
[2017-06-16 08:00] VITALS: BP 136/64
[2017-06-16 12:00] VITALS: BP 148/82
[2017-06-16 16:00] VITALS: BP 138/88
[2017-06-16 20:00] VITALS: BP 154/84
[2017-06-17] VITALS: BP 152/83
[2017-06-17 06:28] LABS: HEMATOCRIT 34.3 % (42.0-52.0); HEMOGLOBIN 11.6 g/dl (14.0-18.0); MEAN CORPUSCULAR HGB 30.8 pg (27.0-31.0); MEAN CORPUSCULAR HGB CONC 33.8 g/dl (33.0-37.0); MEAN PLATELET VOLUME 10.1 fl (9.6-12.3); PLATELET COUNT AUTOMATED 293 10*3/uL (130-400); RED BLOOD COUNT 3.77 10*6/uL (4.50-5.90); WHITE BLOOD COUNT 18.1 10*3/uL (4.8-10.8)
[2017-06-17 06:39] LABS: BUN 25 mg/dl (7-24); CHLORIDE 101 mmol/L (98-107); POTASSIUM 4.1 mmol/L (3.5-5.1); SODIUM 136 mmol/L (136-145)
[2017-06-17 07:21] LABS: PLATELET SUFFICIENCY NORMAL (NORMAL); TOTAL CELLS COUNTED 100 #CELLS
[2017-06-17 08:00] VITALS: BP 142/70
[2017-06-17] MEDS ORDERED: CIPRO500 MG PO (08:46)
== END 2017-06-17 12:27 | disposition home or self-care (01) | DRG 190 ==
LOC: 5E 12:39
PROVIDERS: Internal Medicine
DX: J44.0 Chronic obstructive pulmonary disease with (acute) lower respiratory infection (principal); J18.1 Lobar pneumonia, unspecified organism; J80 Acute respiratory distress syndrome; E78.2 Mixed hyperlipidemia; E11.9 Type 2 diabetes mellitus without complications; D72.829 Elevated white blood cell count, unspecified; J98.11 Atelectasis; I25.10 Atherosclerotic heart disease of native coronary artery without angina pectoris; J20.9 Acute bronchitis, unspecified; J44.1 Chronic obstructive pulmonary disease with (acute) exacerbation; F41.1 Generalized anxiety disorder; I10 Essential (primary) hypertension; T38.0X5A Adverse effect of glucocorticoids and synthetic analogues, initial encounter; Y92.89 Other specified places as the place of occurrence of the external cause; Z95.5 Presence of coronary angioplasty implant and graft; Z79.82 Long term (current) use of aspirin; Z79.899 Other long term (current) drug therapy

== ENCOUNTER → 2017-09-14 | Outpatient (CLI) | payer OTHER ==
[2017-09-14 09:12] LABS: BUN 22 mg/dl (7-24); CHLORIDE 102 mmol/L (98-107); CREATININE 1.44 mg/dL (0.70-1.30); POTASSIUM 4.1 mmol/L (3.5-5.1); SODIUM 136 mmol/L (136-145)
== END | disposition home or self-care (01) ==
LOC: LAB 08:29
PROVIDERS: Internal Medicine Cardiovascular Disease
DX: I25.5 Ischemic cardiomyopathy (principal); I50.22 Chronic systolic (congestive) heart failure

== ENCOUNTER 2017-10-26 20:18 | Inpatient (IN) | payer OTHER, MEDICARE ==
[2017-10-26] VITALS (10 sets, daily range): BP systolic 105–139; BP diastolic 62–85
[~2017-10-26] VITALS: Ht 177.8 cm; Wt 119.9 kg
--- NOTE | ~2017-10-26 | EKG ---
[place], [place] ELECTROCARDIOGRAM REPORT NAME: BIMAL FLORES UNIT #: [id number] ROOM: [facility] DOCTOR: YI ISIDRO [facility],CASSIE BIRTHDATE: [birth year] DOS: 10/26/2017 TIME: 20:35 CONCLUSION: 1. Sinus tachycardia. 2. Poor R-wave progression in the precordial leads, left axis. CASSIE RICHMOND MD CM:EKGRPT:ELECTROCARDIOGRAM REPORT [id number] CASSIE RICHMOND MD [facility]
--- NOTE | ~2017-10-26 | CON ---
[place], [place] REPORT OF CONSULTATION NAME: BIMAL FLORES UNIT #: [id number] [facility]OM: [facility] DOCTOR[facility] [birth year] DOS: 10/28/2017 CARDIOLOGY CONSULTATION HISTORY OF PRESENT ILLNESS: The patient came in with history of tachycardia, extreme and appears to be paroxysmal tachycardia and also has a sinus tachycardia. No sustained or nonsustained ventricular tachycardia. The patient also has some precordial chest discomfort, it is slighter to have the myocardial perfusion scan with a Lexiscan as an outpatient and since he is symptomatic and he is scheduled to undergo Lexiscan with a Cardiolite to evaluate for ischemic heart disease, history of coronary artery disease. Denies syncope, presyncope and there is no urinary tract or gastrointestinal symptoms at this time. The patient has history of cardiomyopathy, a borderline chronic troponin elevation and history of pneumonia in June, chronic obstructive airway disease, general anxiety disorder, coronary artery disease and coronary stenting, essential hypertension and dyslipidemia. The patient also has AICD with a pacemaker on following that patient. PHYSICAL EXAMINATION: SKIN: Warm, not diaphoretic and afebrile. VITAL SIGNS: Large respiratory rate is 16, blood pressure 143/81, heart rate is 80. NECK: Supple. No jugular venous distention. LUNGS: Diminished breath sounds at bases and no wheezing and no rales. HEART: S1, S2 regular and no gallops. ABDOMEN: Soft, sugars are good. RECTAL: Deferred. NEUROLOGIC: No gross focal neurological deficit noted. ASSESSMENT AND PLAN: Tachycardia and some dizziness and heart rate is about 140, 130, sinus tachycardia and I suggest increase the beta blocking agents. The patient has a chronic troponin elevation, probably from the apoptosis and with diminished clearance from the kidneys probably, does not appears to be acute coronary syndrome and increase the beta blocking agents and the patient for Lexiscan with Cardiolite. Thank you very much for asking me to see the patient and follow the patient. CASSIE RICHMOND MD CM:CONSTR:REPORT OF CONSULTATION 0726 10/28/17 0828 interface KEVIN BALLESTEROS MD
--- NOTE | ~2017-10-26 | DS ---
[place], [place] DISCHARGE SUMMARY [id number] UNIT #: [id number] ROOM: [facility] DOCTOR: ANTONIO BASILIO MD BIRTHDATE: [birth year] DOS: 10/28/2017 DISCHARGE DIAGNOSES: 1. Coronary artery disease of [place] vessels with ischemic cardiomyopathy and negative cardiac stress test during this admission reported by his roof cement and paint maker helper, Dr. Figueroa. 1. Chronic elevation of troponin I levels. 2. Chronic obstructive pulmonary disease. 3. Generalized anxiety disorder. 4. Benign essential hypertension. 5. Mixed hyperlipidemia. 6. Type 2 diabetes mellitus. 7. Implanted cardiac defibrillator and pacemaker placement. HOSPITAL COURSE: The patient was admitted for shortness of breath and dizziness, sinus tachycardia, heart rate in 140s. The patient was given intravenous Cardizem in the Emergency Department to control his heart rate and patient was already taking beta blockers. The patient was admitted to the ICU and monitored closely. Heart rate is better controlled now. History of coronary artery disease of the [place] vessels and angioplasty and stent placement in the past. The patient's troponin levels were found to be minimally elevated and was taken for cardiac stress test, which was reported by Dr. Figueroa, his roof cement and paint maker helper to be normal and Dr. Figueroa has cleared the patient for discharge to home today. The patient was closely monitored in the ICU and is asymptomatic now. Benign essential hypertension, treated and controlled, blood pressures were monitored and regulated and medications adjusted. Hypokalemia, replaced with extra potassium supplements. Potassium level was very slightly low at 3.4. LABORATORY DATA: Blood cultures were negative. BUN and creatinine 23 and 1.35 prior to discharge. Normal CBC. DISCHARGE MANAGEMENT: Glimepiride 4 mg in the morning, 2 mg in the evening, simvastatin 30 mg a day, Brilinta 90 mg b.i.d., potassium chloride 20 mEq daily, spironolactone 12.5 mg daily, Ranexa 1000 mg b.i.d., clonidine 0.1 mg once a day, Lexapro 30 mg a day, Coreg 12.5 mg b.i.d., aspirin 81 mg a day, Dulera twice a day, prednisone 2.5 mg daily, sublingual nitroglycerins p.r.n., diltiazem long acting 90 mg daily. FOLLOWUP: With PCP next week. [place], [place] DISCHARGE SUMMARY NAME: MARKBIMAL Godoy UNIT #: [id number] ROOM: [facility] DOCTOR: CHETNA ISIDRO,ANTONIO Mccormack BIRTHDATE: [birth year] ANTONIO BASILIO MD CM:DISCHARG [phone] ANTONIO BASILIO MD 10/28/17 184 interface
--- NOTE | ~2017-10-26 | WRIGHTHP ---
[place], [place] PATIENT HISTORY AND PHYSICAL EXAM NAME: BIMAL FLORES [facility] #: [id number] UNIT #: [id number] ROOM: [facility] DOCTOR: KEVIN BALLESTEROS MD BIRTHDATE: [birth year] DOS: HISTORY OF PRESENT ILLNESS: This patient is very well known to us. The patient states that he was sitting at home. He was not doing anything at all, was just relaxing when he noticed he was short of breath and he became dizzy and he sat still for a few minutes and would not go away, so he got a little worried and he decided to come into the emergency room. He was arrived at the emergency room as he complained of shortness of breath. He felt that this heart was beating too fast by the time he arrived at the emergency room. He denies having any chest pains or palpitations. He was found to have sinus tachycardic at a heart rate of 143. He was given Cardizem in the emergency room and he was admitted. He denies having any fever, any chills, any chest pains or palpitations after admission, does not have any urinary symptoms or bowel symptoms. PAST MEDICAL HISTORY: Significant for: 1. Cardiomyopathy. 2. Chronic troponin elevation. 3. Recent hospitalization with pneumonia in June. 4. COPD. 5. Generalized anxiety disorder. 6. Coronary artery disease with history of cardiac catheterization and stent placement. 7. Benign hypertension. 8. Mixed hyperlipidemia. 9. Type 2 diabetes mellitus. 10. AICD pacemaker placement. SOCIAL HISTORY: Nonsmoker, does not use any alcohol. PHYSICAL EXAMINATION: GENERAL: He is awake, alert and oriented, in no distress this morning. VITAL SIGNS: Graphic trend shows a pressure of 143/81, pulse of 86, respirations 16, temperature 98.6. LUNGS: Clear. HEART: Regular. ABDOMEN: Obese, soft, nontender. EXTREMITIES: Without any edema. LABORATORY DATA: BMP: Glucose 120, BUN 23, creatinine 1.35, sodium 136, potassium 3.4, chloride 101. Troponin 0.035. WBC count is 7.9, hemoglobin 12.6. Urinalysis ____ negative cultures. Lactic acid slightly elevated at 2.4. ASSESSMENT AND PLAN: 1. The patient who presents with shortness of breath and dizziness, ____ sinus tachycardia, heart rate in the 140s, did receive Cardizem in the emergency room and was admitted. He has not had any problems since admission. He is already on beta blockers. The dosage will be increased. 2. Chronic elevation of troponin with history of coronary artery disease. Continue Brilinta and the rest of the medications. The patient will be ordered a consultation with Dr. Figueroa. [place], [place] PATIENT HISTORY AND PHYSICAL EXAM NAME: BIMAL FLORES UNIT #: [id number] ROOM: [facility] DOCTOR: KEVIN BALLESTEROS MD BIRTHDATE: [birth year] 3. Benign hypertension, controlled. 4. Hypokalemia. Supplementation will be ordered. KEVIN BALLESTEROS MD CM:HISPHYS:PATIENT HISTORY AND PHYSICAL EXAMINATION KEVIN BALLESTEROS MD 10/27/17 0949 interface
--- NOTE | ~2017-10-26 | ST ---
[place], [place] EXERCISE STRESS TEST REPORT [id number] UNIT #: [id number] ROOM: [facility] DOCTOR: YI ISIDRO [facility]SIE BIRTHDATE: [birth year] DOS: 10/28/2017 LEXISCAN WITH CARDIOLITE The patient underwent Lexiscan Cardiolite, 0.4 mg injected over 10 seconds and heart rate is 97, no ischemic changes in the EKG. No complication noted. Isotope was injected. Myocardial perfusion scan to follow. No complication noted. CASSIE RICHMOND MD CM:STRESS:EXERCISE STRESS TEST REPORT [id number] CASSIE RICHMOND MD [facility]
--- NOTE | ~2017-10-26 | EKG ---
[place], [place] ELECTROCARDIOGRAM REPORT NAME: BIMAL FLORES UNIT #: [id number] ROOM: [facility] DOCTOR: YI ISIDRO [facility]E BIRTHDATE: [birth year] DOS: 10/26/2017 TIME: 2141. CONCLUSION: 1. Sinus tachycardia. 2. Left axis. 3. No acute changes noted. 4. Tracing on the same. CASSIE RICHMOND MD CM:EKGRPT:ELECTROCARDIOGRAM REPORT [id number] CASSIE RICHMOND MD [facility]
[~2017-10-26 20:18] MED LIST changes: -BRILINTA60 MG PO; +BRILINTA90 M1 PO; +PRAVACHOL40 MG PO; -PRAVACHOL80 M1 PO; +RANEXA1000 M1 PO; -RANEXA500 M1 PO
[2017-10-26 20:54] LABS: BASO # 0.1 10*3/uL (0.0-0.1); BASO % 0.6 % (0.0-1.0); EOS # 0.1 10*3/uL (0.0-0.4); HEMATOCRIT 41.8 % (42.0-52.0); HEMOGLOBIN 14.5 g/dl (14.0-18.0); LYMPH # 3.3 10*3/uL (1.3-4.4); LYMPH % 32.9 % (27.0-41.0); MEAN CELL VOLUME 90.9 fl (80.0-94.0); MEAN CORPUSCULAR HGB 31.5 pg (27.0-31.0); MEAN CORPUSCULAR HGB CONC 34.7 g/dl (33.0-37.0); MEAN PLATELET VOLUME 9.9 fl (9.6-12.3); MONO # 0.9 10*3/uL (0.1-1.0); MONO % 9.2 % (3.0-9.0); NEUT # 5.6 10*3/uL (2.3-7.9); NEUT % 55.8 % (47.0-73.0); PLATELET COUNT AUTOMATED 314 10*3/uL (130-400); RED CELL DISTRI WIDTH 13.2 % (0-14.5); WHITE BLOOD COUNT 10.1 10*3/uL (4.8-10.8)
[2017-10-26 21:06] LABS: ACT PARTIAL THROMBO TIME 18.9 SECONDS (20.8-31.5); INTERNATIONAL NORM RATIO 0.9 (2.0-3.5)
[2017-10-26 21:18] LABS: ALBUMIN 4.1 gm/dl (3.1-4.5); CREATININE 1.63 mg/dL (0.70-1.30); POTASSIUM 3.6 mmol/L (3.5-5.1); TOTAL PROTEIN 7.8 gm/dL (6.4-8.2)
[2017-10-26 21:25] LABS: TROPONIN I 0.344 ng/ml (<0.045)
[2017-10-26] MEDS ORDERED: BRILINTA90 M1 PO (22:39)
[2017-10-26] MEDS ORDERED: PREDNISONE2.5 MG PO (22:40)
[2017-10-26] MEDS ORDERED: SPIRONOLACTONE25 MG PO (22:41)
[2017-10-26] MEDS ORDERED: NITROSTAT0.3 M1 SL (22:46)
[2017-10-27] VITALS: BP 155/85
[2017-10-27 04:00] VITALS: BP 143/81
[2017-10-27 05:47] LABS: BILIRUBIN NEGATIVE (NEGATIVE); BLOOD NEGATIVE (NEGATIVE); CLARITY CLEAR (CLEAR); COLOR YELLOW (YELLOW); GLUCOSE NEGATIVE (NEGATIVE); KETONE NEGATIVE (NEGATIVE); LEUKO ESTERASE NEGATIVE (NEGATIVE); NITRITE NEGATIVE (NEGATIVE); PH 5.5 (5.0-9.0); SPECIFIC GRAVITY 1.025 (1.005-1.030); UROBILINOGEN 0.2 E.U./dl (0.2-1.0)
[2017-10-27 05:54] LABS: RBC 16-20 rbc/hpf (0-2)
[2017-10-27 06:15] LABS: BUN 23 mg/dl (7-24); CHLORIDE 101 mmol/L (98-107); CREATININE 1.35 mg/dL (0.70-1.30); POTASSIUM 3.4 mmol/L (3.5-5.1); SODIUM 136 mmol/L (136-145)
[2017-10-27 06:17] LABS: TROPONIN I 0.305 ng/ml (<0.045)
[2017-10-27 06:32] LABS: BASO # 0.1 10*3/uL (0.0-0.1); BASO % 0.8 % (0.0-1.0); EOS # 0.1 10*3/uL (0.0-0.4); EOS % 1.6 % (1.0-4.0); HEMATOCRIT 38.3 % (42.0-52.0); HEMOGLOBIN 12.6 g/dl (14.0-18.0); LYMPH % 37.8 % (27.0-41.0); MEAN CORPUSCULAR HGB 30.6 pg (27.0-31.0); MEAN CORPUSCULAR HGB CONC 32.9 g/dl (33.0-37.0); MEAN PLATELET VOLUME 9.9 fl (9.6-12.3); MONO # 0.7 10*3/uL (0.1-1.0); MONO % 9.1 % (3.0-9.0); NEUT % 50.2 % (47.0-73.0); PLATELET COUNT AUTOMATED 246 10*3/uL (130-400); RED BLOOD COUNT 4.12 10*6/uL (4.50-5.90); RED CELL DISTRI WIDTH 13.3 % (0-14.5); WHITE BLOOD COUNT 7.9 10*3/uL (4.8-10.8)
[2017-10-27 08:00] VITALS: BP 126/90
[2017-10-27 12:00] VITALS: BP 133/81
[2017-10-27 16:00] VITALS: BP 137/66
[2017-10-27] MEDS ORDERED: AMARYL4 MG PO (18:32)
[2017-10-27 20:00] VITALS: BP 126/71
[2017-10-28] VITALS: BP 129/75
[2017-10-28 04:00] VITALS: BP 129/64
[2017-10-28 08:30] VITALS: BP 138/70
[2017-10-28] MEDS ORDERED: FUROSEMIDE40 MG PO (09:05)
[2017-10-28 12:00] VITALS: BP 142/62
[2017-10-28 16:00] VITALS: BP 151/75
[2017-10-28] MEDS ORDERED: DILTIAZEM HCL90 MG PO (17:32)
== END 2017-10-28 18:10 | disposition home or self-care (01) | DRG 310 ==
LOC: ED 20:18 → ICCU 21:35 → EDHOLD 21:35 → ICCU 22:14
PROVIDERS: Internal Medicine; Student in an Organized Health Care Education/Training Program
DX: I47.1 Supraventricular tachycardia (principal); I11.0 Hypertensive heart disease with heart failure; I50.9 Heart failure, unspecified; J44.9 Chronic obstructive pulmonary disease, unspecified; I25.10 Atherosclerotic heart disease of native coronary artery without angina pectoris; F41.1 Generalized anxiety disorder; E78.2 Mixed hyperlipidemia; E11.9 Type 2 diabetes mellitus without complications; E66.9 Obesity, unspecified; E87.6 Hypokalemia; I25.5 Ischemic cardiomyopathy; I25.2 Old myocardial infarction; Z95.5 Presence of coronary angioplasty implant and graft; Z79.02 Long term (current) use of antithrombotics/antiplatelets; Z79.82 Long term (current) use of aspirin; Z87.01 Personal history of pneumonia (recurrent); Z95.810 Presence of automatic (implantable) cardiac defibrillator; Z79.899 Other long term (current) drug therapy; Z88.0 Allergy status to penicillin; Z88.1 Allergy status to other antibiotic agents; Z88.8 Allergy status to other drugs, medicaments and biological substances; Z82.49 Family history of ischemic heart disease and other diseases of the circulatory system; Z83.3 Family history of diabetes mellitus

== ENCOUNTER → 2017-11-29 | Outpatient (CLI) | payer OTHER, MEDICARE ==
[~2017-11-29] MED LIST changes: +DILTIAZEM HCL90 MG PO; +FUROSEMIDE40 MG PO; +NITROSTAT0.3 M1 SL; +PREDNISONE2.5 MG PO; +SPIRONOLACTONE25 MG PO
[2017-11-29 14:31] LABS: BASO % 0.5 % (0.0-1.0); EOS # 0.1 10*3/uL (0.0-0.4); EOS % 1.4 % (1.0-4.0); HEMATOCRIT 37.7 % (42.0-52.0); HEMOGLOBIN 12.3 g/dl (14.0-18.0); LYMPH # 1.5 10*3/uL (1.3-4.4); MEAN CELL VOLUME 95.2 fl (80.0-94.0); MEAN CORPUSCULAR HGB 31.1 pg (27.0-31.0); MEAN CORPUSCULAR HGB CONC 32.6 g/dl (33.0-37.0); MEAN PLATELET VOLUME 9.9 fl (9.6-12.3); MONO # 0.5 10*3/uL (0.1-1.0); MONO % 7.6 % (3.0-9.0); NEUT # 4.5 10*3/uL (2.3-7.9); PLATELET COUNT AUTOMATED 285 10*3/uL (130-400); RED BLOOD COUNT 3.96 10*6/uL (4.50-5.90); RED CELL DISTRI WIDTH 13.4 % (0-14.5); WHITE BLOOD COUNT 6.6 10*3/uL (4.8-10.8)
== END | disposition home or self-care (01) ==
LOC: LAB 14:11
PROVIDERS: Internal Medicine Cardiovascular Disease
DX: Z51.81 Encounter for therapeutic drug level monitoring (principal); Z79.01 Long term (current) use of anticoagulants

== ENCOUNTER → 2018-01-02 | Outpatient (CLI) | payer OTHER, MEDICARE | END | disposition home or self-care (01) | LOC: CT 12-19 09:00 → US 12-19 10:00 → CT 09:00 | DX: I65.23 Occlusion and stenosis of bilateral carotid arteries (principal); R42 Dizziness and giddiness; R51 Headache ==

== ENCOUNTER 2018-04-03 13:25 | Inpatient (IN) | payer OTHER, MEDICARE ==
[~2018-04-03] VITALS: Ht 177.8 cm; Wt 116.7 kg
--- NOTE | ~2018-04-03 | DS ---
[place], [place] DISCHARGE SUMMARY NAME: BIMAL FLORES UNIT #: [id number] ROOM: 512 DOCTOR: ANTONIO BASILIO MD BIRTHDATE: [birth year] DOS: 04/04/2018 DISCHARGE DIAGNOSES: 1. Acute diastolic type congestive heart failure. 2. Acute exacerbation of chronic obstructive pulmonary disease. 3. Coronary artery disease of the [place] vessels. 4. Generalized anxiety disorder. 5. Obesity. 6. Coronary artery disease of the [place] vessels and stent placements. 7. Type 2 diabetes mellitus. 8. Chronic primary insomnia. 9. Bronchial asthma. 10. Major depression, recurrent, mild. HOSPITAL COURSE: The patient was admitted by Dr. Lulú Koroma, his PCP yesterday for increased shortness of breath and diagnosed as having acute diastolic type CHF. The patient was diuresed with IV Lasix and he diuresed very well and his breathing has returned to normal and he is interested in going home today. Mild acute exacerbation of COPD, improved with treatment. The patient takes bronchodilators. Major depression, recurrent, mild, treated and controlled. The patient takes Lexapro. Type 2 diabetes mellitus. Blood sugars to be monitored and treated. The patient remains on glimepiride. Coronary artery disease of the [place] vessels without chest pains. The patient remains on Ranexa, Imdur and Pravachol. Mixed hyperlipidemia, treated with Pravachol. DISCHARGE MANAGEMENT: Imdur 60 mg a day, glimepiride 4 mg a day, Lexapro 20 mg a day, aspirin 81 mg a day, pravastatin 40 mg a day, glimepiride 2 mg at bedtime and 4 in the morning, hydralazine 50 mg t.i.d., Coreg 25 mg b.i.d., Symbicort 2 puffs b.i.d., furosemide 40 mg daily, lorazepam 1 mg q.i.d. p.r.n. for anxiety and lorazepam p.r.n. Follow up with Dr. Koroma in a week. [place], [place] DISCHARGE SUMMARY NAME: BIMAL FLORES Walt UNIT #: [id number] ROOM: 512 DOCTOR: ANTONIO BASILIO MD BIRTHDATE: [birth year] ANTONIO BASILIO MD CM:MARGAUX [phone] ANTONIO BASILIO MD 04/04/18 1820 interface
--- NOTE | ~2018-04-03 | EKG ---
[place], [place] ELECTROCARDIOGRAM REPORT NAME: BIMAL FLORES UNIT #: [id number] ROOM: 512 DOCTOR: NASEEM DRAFT REPORT BIRTHDATE: [birth year] [facility] Test Date: 2018-04-03 Test Time: 14:44:13 Pat Name: BIMAL FLORES Department: Room: 512 1 Gender: M Hand Finisher: Belinda Sousa : 1955 Requested By: KEVIN BALLESTEROS Order Number: [id number] Reading MD: Matthew Prather MD Measurements Intervals [place] Rate: 105 P: [place]: QRS: -20 QRSD: 113 T: 60 QT: 361 QTc: 478 Interpretive Statements Atrial fibrillation Borderline intraventricular conduction delay Borderline prolonged QT interval Baseline wander in lead(s) V3 Compared to ECG 02/07/2018 18:17:17 Sinus tachycardia no longer present Electronically Signed On 04-07-2018 12:04:48 PDT by Matthew Prather MD CM:EKGRPT:ELECTROCARDIOGRAM REPORT [id number] KEVIN GUSMAN DRAFT REPORT KEVIN BALLESTEROS MD
--- NOTE | ~2018-04-03 | WRIGHTHP ---
[place], [place] PATIENT HISTORY AND PHYSICAL EXAM [facility]ES [id number] UNIT #: [id number] ROOM: 512 DOCTOR: KEVIN BALLESTEROS MD BIRTHDATE: [birth year] DOS: HISTORY OF PRESENT ILLNESS: The patient is very well known to us. The patient states on , he called the office saying that he was sick and he was having some difficulty breathing. He was told to go to the Emergency Room, but instead decided to go to a local urgent care where he was given steroids. He continues to have shortness of breath, especially when he tries anything exertional. His legs have also been increasingly swollen. He denies having any chest pains or palpitations. PAST MEDICAL HISTORY: 1. Generalized anxiety disorder. 2. Benign essential hypertension. 3. Coronary artery disease with history of stent placement. 4. Type 2 diabetes mellitus, primary insomnia. 4. Generalized anxiety disorder, mild intermittent asthma, chronic elevation of troponin and dilated cardiomyopathy. MEDICATIONS: Brilinta, carvedilol, Lexapro, glimepiride, hydralazine, breathing treatments, isosorbide, Lasix, nitroglycerin sublingual, potassium, Pravachol, Ranexa, spironolactone and Symbicort. SOCIAL HISTORY: Nonsmoker, does not use any alcohol. PHYSICAL EXAMINATION: GENERAL: He is awake and alert and oriented. VITAL SIGNS: Blood pressure is 120/80, pulse of 100, respirations 20, afebrile. LUNGS: Diminished breath sounds, very few fine wheezes heard in the bases. HEART: Regular, tachycardic about 100 and when he did any kind of exercise, his heart rate went up between 110 to 120. EXTREMITIES: 2+ swelling in the lower legs. ASSESSMENT AND PLAN: 1. The patient with presence of tachycardia. Exercise oximetry was done. He did not have any desaturation. We will ask Dr. Figueroa for an opinion. Consultation will be obtained. 2. Diastolic congestive heart failure. Check chest x-ray. IV diuretics will be ordered. 3. Chronic obstructive pulmonary disease with mild exacerbation. IV steroids and IV antibiotics have been ordered. He has failed outpatient regimen. 4. Coronary artery disease. Continue home medications. [place], [place] PATIENT HISTORY AND PHYSICAL EXAM NAME: BIMAL FLORES UNIT #: [id number] ROOM: 512 DOCTOR: KEVIN BALLESTEROS MD BIRTHDATE: [birth year] KEVIN BALLESTEROS MD CM:HISPHYS:PATIENT HISTORY AND PHYSICAL EXAMINATION 1422 1445 KEVIN BALLESTEROS MD 04/17/18 0935 interface
[2018-04-03 13:38] VITALS: BP 139/79
[2018-04-03 15:01] LABS: BASO % 0.3 % (0.0-1.0); HEMATOCRIT 38.3 % (42.0-52.0); HEMOGLOBIN 12.8 g/dl (14.0-18.0); LYMPH # 1.6 10*3/uL (1.3-4.4); LYMPH % 14.5 % (27.0-41.0); MEAN CELL VOLUME 93.2 fl (80.0-94.0); MEAN CORPUSCULAR HGB 31.1 pg (27.0-31.0); MEAN CORPUSCULAR HGB CONC 33.4 g/dl (33.0-37.0); MEAN PLATELET VOLUME 9.7 fl (9.6-12.3); MONO # 0.5 10*3/uL (0.1-1.0); MONO % 4.8 % (3.0-9.0); NEUT # 8.7 10*3/uL (2.3-7.9); NEUT % 79.3 % (47.0-73.0); PLATELET COUNT AUTOMATED 284 10*3/uL (130-400); RED BLOOD COUNT 4.11 10*6/uL (4.50-5.90); RED CELL DISTRI WIDTH 13.7 % (0-14.5)
[2018-04-03 15:13] LABS: CREATININE 1.46 mg/dL (0.70-1.30); POTASSIUM 4.3 mmol/L (3.5-5.1)
[2018-04-03] MEDS ORDERED: Imdur SA60 MG PO (15:37)
[2018-04-03] MEDS ORDERED: HYDRALAZINE HYD50 MG PO (15:38)
[2018-04-03] MEDS ORDERED: COREG25 MG PO (15:38)
[2018-04-03 16:00] VITALS: BP 144/92
[2018-04-03 20:00] VITALS: BP 156/83
[2018-04-04] VITALS: BP 129/74
[2018-04-04 12:00] VITALS: BP 110/53
[2018-04-04 16:00] VITALS: BP 132/71
== END 2018-04-04 18:41 | disposition home or self-care (01) | DRG 190 ==
LOC: 5E 13:25
PROVIDERS: Internal Medicine
DX: J44.1 Chronic obstructive pulmonary disease with (acute) exacerbation (principal); I50.31 Acute diastolic (congestive) heart failure; F33.0 Major depressive disorder, recurrent, mild; I42.0 Dilated cardiomyopathy; Z68.36 Body mass index [BMI] 36.0-36.9, adult; I25.10 Atherosclerotic heart disease of native coronary artery without angina pectoris; F41.1 Generalized anxiety disorder; E66.9 Obesity, unspecified; E11.9 Type 2 diabetes mellitus without complications; J45.909 Unspecified asthma, uncomplicated; F51.01 Primary insomnia; F51.04 Psychophysiologic insomnia; R00.0 Tachycardia, unspecified; E78.2 Mixed hyperlipidemia; Z95.5 Presence of coronary angioplasty implant and graft; Z79.899 Other long term (current) drug therapy

== ENCOUNTER 2018-05-22 12:17 | Inpatient (IN) | payer OTHER, MEDICARE ==
[2018-05-22] VITALS (7 sets, daily range): BP systolic 140–154; BP diastolic 54–85
[~2018-05-22] VITALS: Ht 177.8 cm; Wt 111.7 kg
--- NOTE | ~2018-05-22 | PR ---
[place], [place] PROGRESS NOTE NAME: BIMAL FLORES [facility] #: [id number] UNIT #: [id number] ROOM: 401 DOCTOR: JESSICA RUIZ MD,ROSY BIRTHDATE: [birth year] DOS: 05/25/2018 SUBJECTIVE: The patient noted comfortable at this time, resting on the bed, has been noted to have hyperglycemia related to corticosteroids, reduction of respiratory symptoms were noted. Coughing has been still noted with some chest congestion, no sputum expectoration, but shortness of breath improved markedly. OBJECTIVE: VITAL SIGNS: Normal temperature, respiratory rate of 18, heart rate 94, blood pressure 138/70. The pulse oxygen saturation at rest on room air was 95% saturation. HEENT: Head was atraumatic. Eyes nonicterus. NECK: Supple. CARDIOVASCULAR: S1, S2 audible. LUNGS: The patient without any wheezing or crackle. Breaths are noted [id number] decreased bilaterally. ABDOMEN: Soft, nontender and obese. EXTREMITIES: Without acute edema. IMPRESSION: Stable respiratory status, progressive improvement and resolution of the acute respiratory was noted with exacerbation of chronic obstructive pulmonary disease. Severe steroid-induced hyperglycemia. PLAN OF MANAGEMENT: The steroids for the patient could be switched to the oral prednisone tapering before discharge. Followup as an outpatient was recommended for his COPD and obstructive sleep apnea disorder. ROSY LOPEZ MD CM:PNTRANS [id number] [id number] ROSY RUIZ MD 05/25/18 1618 interface
--- NOTE | ~2018-05-22 | WRIGHTHP ---
[place], [place] PATIENT HISTORY AND PHYSICAL EXAM NAME: [facility]LA FLORES [facility] #: [id number] UNIT #: [id number] ROOM: 401 DOCTOR: KEVIN BALLESTEROS MD BIRTHDATE: [birth year] DOS: 05/22/2018 HISTORY OF PRESENT ILLNESS: The patient is a 63 years old, very well known to us, comes in with complaints of shortness of breath. The patient states that last , he went to Dr. Figueroa's office, was seen by his nurse practitioner. He complained of increased shortness of breath and his Coreg was doubled and he was advised to increase his Lasix to twice a day. The patient says he had felt extremely poorly after the Coreg was doubled. He could not function at all, so he called their office on Tuesday. They advised that the patient be seen in the Emergency Room and the dosage of the Coreg and the Lasix to be cut out. The patient does not have any fever, any chills, any abdominal pain, any nausea or emesis. He has shortness of breath, especially on exertion. Denies having any leg edema. He has continued to lose weight and lost about 30 pounds in the last several months. PAST MEDICAL HISTORY: Significant for: 1. Cardiomyopathy with history of AICD pacemaker placement. 2. Coronary artery disease with cardiomyopathy with improvement in the LV function up to 50%. 3. Chronic elevation of troponin. 4. Chronic obstructive pulmonary disease. 5. Generalized anxiety disorder. 6. Benign hypertension. 7. Mixed hyperlipidemia. 8. Type 2 diabetes mellitus, non-insulin dependent. MEDICATIONS: Medications that he is currently on are carvedilol 12.5 b.i.d., Symbicort 160 two puffs twice a day, Lexapro 30 daily, Lasix 40 daily, glimepiride 2 mg at bedtime, hydralazine 50 t.i.d., isosorbide 60 daily, lorazepam 1 mg q.i.d., Pravachol 60 daily, prednisone 2.5 daily, Ranexa 1000 b.i.d., spironolactone 12.5 daily, Brilinta 90 q. 12, zolpidem 10 at bedtime. SOCIAL HISTORY: Nonsmoker, history of smoking many years ago. Denies using any alcohol. PHYSICAL EXAMINATION: GENERAL: He is awake and alert and oriented, in no major distress this morning, but he does get short of breath on any kind of exertion. VITAL SIGNS: Blood pressure is 152/90, pulse of 80, respirations 20, temperature 98.1. LUNGS: Diminished breath sounds. No wheezes, rales or rhonchi heard. HEART: Regular. ABDOMEN: Obese. EXTREMITIES: Without any edema. ASSESSMENT AND PLAN: 1. The patient presents with exertional shortness of breath. Rule out ____ protocol was ordered. Consultation with Dr. Figueroa and echocardiogram was ordered. 2. Chronic obstructive pulmonary disease, on maximal treatment plan. A CT of [place], [place] PATIENT HISTORY AND PHYSICAL EXAM NAME: MARKBIMAL Walt UNIT #: [id number] ROOM: [facility] DOCTOR: KEVIN BALLESTEROS MD BIRTHDATE: [birth year] the chest will be ordered and a consultation with Dr. Shah will be obtained. I believe the patient is deconditioned and most likely responsible for his increasing shortness of breath and weight loss would advised. 3. Chronic elevation of troponin with a negative cardiac catheterization earlier this year. Await for Dr. Figueroa to decide on further treatment plan. KEVIN BALLESTEROS MD CM:HISPHYS:PATIENT HISTORY AND PHYSICAL EXAMINATION 0835 0847 KEVIN BALLESTEROS MD 05/23/18 1148 interface
--- NOTE | ~2018-05-22 | DS ---
[place], [place] DISCHARGE SUMMARY NAME: BIMAL FLORES UNIT #: [id number] ROOM: 401 DOCTOR: ANTONIO BASILIO MD BIRTHDATE: [birth year] DOS: 05/25/2018 DISCHARGE DIAGNOSES: 1. Acute exacerbation of severe underlying chronic obstructive pulmonary disease, chronic elevation of troponin I levels, evaluated by Cardiology. 2. Generalized anxiety disorder. 3. Benign essential hypertension. 4. Mixed hyperlipidemia. 5. Type 2 diabetes mellitus. 6. History of cardiomyopathy with internal cardiac defibrillator placement and left ventricular ejection fraction of 50%. 7. Generalized anxiety disorder. 8. Benign essential hypertension. 9. Mixed hyperlipidemia. HOSPITAL COURSE: The patient presented to [facility] and was admitted by and seen in the Emergency Department with increased shortness of breath. The patient was admitted to a monitored bed. The patient complains of shortness of breath and was admitted to [facility] by Dr. Lulú Koroma for acute exacerbation of COPD. The patient was found to have chronically elevated troponin I levels and his excellence consultant, Dr. Figueroa was also consulted. The patient was taken for lung scan, which was low probability for pulmonary embolism. Echocardiogram was also performed. CT of the chest showed no acute abnormality. The troponin I levels for this patient has chronically elevated. The patient is feeling very well and would like to be discharged to home. After clearance from Cardiology, the patient to be discharged to home. Stage 3A chronic kidney disease. DISCHARGE MANAGEMENT: Spironolactone 12.5 mg daily, simvastatin 60 mg a day, Imdur 60 mg a day, furosemide 40 mg a day, Lexapro 30 mg a day, Brilinta 90 mg daily, Ranexa 500 mg 2 tablets b.i.d., hydralazine 50 mg every 8 hours, glimepiride 2 mg at bedtime, Coreg 12.5 mg b.i.d., albuterol inhaler p.r.n. Ambien 10 mg at bedtime p.r.n. [place], [place] DISCHARGE SUMMARY NAME: BIMAL FLORES UNIT #: [id number] ROOM: 401 DOCTOR: ANTONIO BASILIO MD BIRTHDATE: [birth year] ANTONIO BASILIO MD CM:MARGAUX 1625 [id number] ANTONIO BASILIO MD 05/25/18 1708 interface
--- NOTE | ~2018-05-22 | PR ---
[place], [place] PROGRESS NOTE [id number] #: [id number] ROOM: 401 DOCTOR: KEVIN BALLESTEROS MD BIRTHDATE: [birth year] DOS: 05/24/2018 SUBJECTIVE: The patient is not having any new complaints. Appreciate Dr. Shah's input. Dr. Figueroa has not seen the patient yet. OBJECTIVE: VITAL SIGNS: Graphic trend shows a pressure 128/88, pulse of 90, respirations 20, temperature 98.1. LUNGS: Diminished breath sounds clear. HEART: Regular. ABDOMEN: Obese, soft, nontender. EXTREMITIES: Without any edema. CT of the chest was negative. V/Q scan was normal, low probability for PE. An echocardiogram was normal. Normal LV function with an ejection fraction of 50-55%. ASSESSMENT AND PLAN: 1. Cardiomyopathy with history of AICD placement with improvement in the ejection fraction. 2. Chronic obstructive pulmonary disease without any exacerbation. Discussed with Dr. Shah. Plans to give the patient steroids for 24 hours and then plan on possibly discharging him to home tomorrow. 3. Coronary artery disease with a cardiac catheterization earlier this year, which showed normal coronaries. I asked Dr. Figueroa to see the patient. Status post cardiac catheterization with normal coronaries in 06/2017. KEVIN BALLESTEROS MD CM:PNTRANS 0820 1026 KEVIN BALLESTEROS MD 05/24/18 1025 interface
--- NOTE | ~2018-05-22 | CON ---
[place], [place] REPORT OF CONSULTATION NAME: BIMAL FLORES [facility] #: [id number] UNIT #: [id number] ROOM: 401 DOCTOR: JESSICA RUIZ MD,ROSY BIRTHDATE: [birth year] DOS: 05/23/2018 CONSULTATION REQUESTED BY: Dr. Lulú Koroma. REASON FOR CONSULTATION: Assessment of symptoms of shortness of breath. HISTORY OF PRESENT ILLNESS: This is a 63-year-old white male patient with past history of chronic obstructive pulmonary disease as well as congestive heart failure. The patient has been in the past of cardiomyopathy that has improved with normal left ventricle ejection fraction reported recently with the medication. He came into the hospital. He had been complaining of symptoms of shortness breath, which has been ongoing for the past 2-3 weeks. The shortness of breath occurs with vgeb-ea-djoqeage exertion. He was complaining of fatigue. The patient does have mild cough without any sputum expectoration. Denies symptoms of wheezing, chest pain, or hemoptysis. He has been assessed in the Emergency Room and hospitalized for further medical management. REVIEW OF SYSTEMS: CONSTITUTIONAL: Reported symptoms of fatigue and tiredness. HEENT: Eyes, denies any burning, redness or discharge. Ears, no symptoms of sore throat, hoarseness, otalgia, postnasal drainage or epistaxis. CARDIOVASCULAR: Denies joint pain, edema, or pain of the lower extremities. GASTROINTESTINAL: Denies dysphagia, nausea, vomiting, diarrhea, abdominal pain, hematemesis, melena, or hematochezia. Denies abnormal weight loss. GENITOURINARY: No dysuria, suprapubic pain, or hematuria. MUSCULOSKELETAL: No joint pain, redness, or tenderness. SKIN: Denies any lesions or rashes. CENTRAL NERVOUS SYSTEM: Denies any dizziness, headache, diplopia, or syncopal episodes. Remaining systems were reviewed. They were noted all negative. PAST MEDICAL HISTORY: 1. History of ischemic cardiomyopathy with AICD in place with improvement in ejection fraction noted gradually with medical management. 2. Chronic elevation in troponin was also reported. 3. Chronic obstructive pulmonary disease. 4. General anxiety disorder. 5. Essential hypertension. 6. Moderate severe obesity. 7. Mixed hyperlipidemia. 8. Type 2 diabetes mellitus. PAST SURGICAL HISTORY: 1. AICD insertion. 2. Cardiac catheterization and coronary stents insertion. 3. AICD insertion. 4. Lithotripsy. FAMILY HISTORY: Reported for diabetes, hypertension and coronary artery [place], [place] REPORT OF CONSULTATION [id number] UNIT #: [id number] ROOM: 401 DOCTOR: ROSY BAL MD BIRTHDATE: [birth year] disease. SOCIAL HISTORY: The patient is , has 2 children, lives at home. Known with tobacco use, half a pack of cigarettes per day until 30 years ago. Tobacco started as a teenager. MEDICATIONS: Listed for patient in home on remission, medication reconciliation as use: Symbicort, Coreg, Lexapro, Lasix, Amaryl, hydralazine, Imdur, lorazepam, pravastatin, prednisone 2.5 mg daily, Ranexa, Aldactone, Brilinta, and zolpidem. DRUG ALLERGY HISTORY: ALLERGY TO SEVERAL DRUGS THAT INCLUDE VANCOMYCIN, DEMEROL, PENICILLINS. PHYSICAL EXAMINATION: GENERAL: A 63-year-old male who has been noted currently awake and alert without any acute distress. Height of 5 feet 10 inches and weight of 244 pounds. VITAL SIGNS: Normal temperature, respiratory rate of 20-16, heart rate of 109 on admission noted 82, blood pressure 130/54-154/82. Pulse oxygen saturation recorded on room air is 96% saturation. HEENT: Head was atraumatic. Eyes nonicterus. NECK: Supple. CARDIOVASCULAR: S1, S2 is audible. LUNGS: Noted with soxy-ci-qlkuvvpo decreased breath sounds without wheezing or crackles. ABDOMEN: Soft, obese, and nontender. Bowel sounds present. EXTREMITIES: The patient noted without any acute edema, clubbing, or cyanosis. MUSCULOSKELETAL: Without any acute deformity. VISIBLE SKIN: No lesions or rashes. CENTRAL NERVOUS SYSTEM: The patient's cranial nerves 2-12 intact. LABORATORY DATA: The patient's CBC on 05/22/2018, WBC count normal, hemoglobin 13, hematocrit 38.5, and platelet count 312,000. The lactic acid 2.6 on admission and follow up 1.3. PT/PTT of the patient yesterday was normal. BMP, BUN 28, creatinine 1.63 and glucose 215. Sodium 135. There were no labs done. Chest x-ray on admission was noted as no acute pulmonary infiltration, finding of congestive heart failure, pleural effusion. CT of the chest that was done this morning was assessed, does not show any pleural fluid, pulmonary infiltration interstitial lung disease or other abnormalities. IMPRESSION: 1. The patient is currently admitted to the hospital with symptoms of shortness breath, etiology is not very clear at this time. 2. History of congestive heart failure, which has been noted with systolic dysfunction improvement cardiomyopathy. 3. Chronic obesity. 4. Chronic obstructive pulmonary disease does not seem to acute exacerbation with history and physical examination. 5. Rule out pulmonary embolism as well as the CT scan was done without contrast [place], [place] REPORT OF CONSULTATION NAME: BIMAL FLORES UNIT #: [id number] ROOM: 401 DOCTOR: JESSICA RUIZ MD,ROSY BIRTHDATE: [birth year] because of elevation of creatinine. The pulmonary embolism cannot be excluded. The cardiac workup further started for this patient as well with the repeat echocardiogram ordered by the Cardiology Service with pending results. The patient was also known with obstructive sleep apnea disorder, which has been diagnosed previously. PLAN OF TREATMENT: The patient has stated that he was not tolerant to the use of CPAP in the past. Further change in treatment recommendation will be given after the available of the V/Q scan for this patient in addition to assessment and lab data once available. Usual care, other supportive therapy, plan of management, care plan for the patient and treatment. Additional treatment changes will be ordered based on progression of the illness. Continue his current medical management, otherwise, which was started on this patient with the use of diuretics, bronchodilators and other treatments. Thanks for allowing me to participate in the care of this patient. ROSY LOPEZ MD CM:CONSTR:REPORT OF CONSULTATION 1440 05/23/18 1541 interface
--- NOTE | ~2018-05-22 | EKG ---
[place], [place] ELECTROCARDIOGRAM REPORT NAME: BIMAL FLORES UNIT #: [id number] ROOM: 401 DOCTOR: NASEEM DRAFT REPORT BIRTHDATE: [birth year] [facility] Test Date: 2018-05-22 Test Time: 12:41:35 Pat Name: BIMAL FLORES Department: Room: 401 Gender: M Cnc Service Technician: Belinda Sousa : 1955 Requested By: DARWIN RUSSO Order Number: [id number] Reading MD: Antelmo Figueroa MD Measurements Intervals [place] Rate: 108 P: 5 GA: 155 QRS: -32 QRSD: 107 T: 69 QT: 370 QTc: 496 Interpretive Statements Sinus tachycardia Left axis deviation Borderline prolonged QT interval Compared to ECG 04/03/2018 14:44:13 Left-axis deviation now present Atrial fibrillation no longer present Electronically Signed On 05-29-2018 8:55:43 PST by Antelmo Figueroa MD CM:EKGRPT:ELECTROCARDIOGRAM REPORT 1241 [id number] DARWIN MUÑOZ DRAFT REPORT DARWIN RUSSO DO
--- NOTE | ~2018-05-22 | PR ---
[place], [place] PROGRESS NOTE NAME: [facility] FLORES [facility] #: [id number] UNIT #: [id number] ROOM: 401 DOCTOR: JESSICA RUIZ MD,ROSY BIRTHDATE: [birth year] DOS: 05/24/2018 SUBJECTIVE: The patient has been still noted symptoms of shortness of breath occurs with exertion. He has been reporting symptoms of wheezing in the last 24 hours as well with walking. Denies symptoms of chest pain. Cough has been noted mild to moderate, nonproductive. No symptoms of chest pain or hemoptysis. Denies symptoms of nausea, vomiting, diarrhea, abdominal pain. No symptoms of hematemesis or melena. Denies any pain of the lower extremity. REVIEW OF SYSTEMS: Remaining systems reviewed they were noted all negative. OBJECTIVE: VITAL SIGNS: Normal temperature, respiratory rate 20, heart rate 112, blood pressure 128/98. The pulse oxygen saturation of the patient on room air was 95% saturation. HEENT: Examination shows head was atraumatic. Eyes nonicterus. NECK: Supple. CARDIOVASCULAR: S1, S2 is audible. LUNGS: The patient was noted without any wheeze or crackles at present time. Breaths are noted mildly diminished bilaterally. ABDOMEN: Soft with moderate obesity. EXTREMITIES: Without any acute edema. VISIBLE SKIN: No lesions or rashes. GENITOURINARY: Cranial nerves 2-12 intact. No focal deficit. LABORATORY DATA: V/Q scan that was obtained yesterday was noted low probability for pulmonary embolism. The echocardiogram was done yesterday as well for the patient that has been dictated by Dr. Chester for this patient. The finding with the patient reported as findings of normal left ventricular function was noted with left ventricular ejection fraction was calculated as 55%. IMPRESSION: 1. The patient has been currently noted with shortness of breath most likely due to the exacerbation of chronic obstructive pulmonary disease. 2. History of cardiomyopathy, which is noted ischemic resolving normal left ventricle ejection fraction noted at present time. 3. History of cardiac dysrhythmia. 4. Obstructive sleep apnea disorder, nonadherence with the treatment. 5. Chronic obesity. PLAN OF MANAGEMENT: Trial of the corticosteroid 40 mg q.8 hours for the patient next 24 hours with the response of the treatment. The patient had improvement of the symptoms recorded could be considered from discharge. In the meantime, continue other therapy, plan of management, care plan and treatment and therapy. Continue bronchodilator. The discharge planning for the patient and the assessment for today was discussed with Dr. Lulú Koroma. [place], [place] PROGRESS NOTE NAME: BIMAL FLORES UNIT #: [id number] ROOM: [facility] DOCTOR: JESSICA RUIZ MD,ROSY BIRTHDATE: [birth year] ROSY LOPEZ MD CM:TANMAY ROSY RUIZ MD 05/24/18 0949 interface
[~2018-05-22 12:17] MED LIST changes: +COREG25 MG PO; +HYDRALAZINE HYD50 MG PO; +Imdur SA60 MG PO
[2018-05-22 12:44] LABS: BASO % 0.5 % (0.0-1.0); EOS % 0.4 % (1.0-4.0); HEMATOCRIT 38.5 % (42.0-52.0); LYMPH # 1.8 10*3/uL (1.3-4.4); LYMPH % 24.8 % (27.0-41.0); MEAN CORPUSCULAR HGB 30.7 pg (27.0-31.0); MEAN CORPUSCULAR HGB CONC 33.8 g/dl (33.0-37.0); MEAN PLATELET VOLUME 9.5 fl (9.6-12.3); MONO # 0.6 10*3/uL (0.1-1.0); MONO % 7.7 % (3.0-9.0); NEUT # 4.9 10*3/uL (2.3-7.9); NEUT % 65.8 % (47.0-73.0); PLATELET COUNT AUTOMATED 312 10*3/uL (130-400); RED BLOOD COUNT 4.23 10*6/uL (4.50-5.90); RED CELL DISTRI WIDTH 13.4 % (0-14.5); WHITE BLOOD COUNT 7.4 10*3/uL (4.8-10.8)
[2018-05-22 12:50] LABS: ACT PARTIAL THROMBO TIME 20.7 SECONDS (20.8-31.5); INTERNATIONAL NORM RATIO 0.9 (2.0-3.5)
[2018-05-22 12:57] LABS: ALBUMIN 3.5 gm/dl (3.1-4.5); CREATININE 1.63 mg/dL (0.70-1.30); POTASSIUM 3.8 mmol/L (3.5-5.1); TOTAL PROTEIN 7.2 gm/dL (6.4-8.2)
[2018-05-22 13:00] LABS: TROPONIN I 0.47 ng/ml (<0.045)
[2018-05-22] MEDS ORDERED: MILLIPRED5 MG PO (18:19)
[2018-05-22] MEDS ORDERED: ALDACTONE25 MG PO (18:21)
[2018-05-22] MEDS ORDERED: PRAVASTATIN SOD10 MG PO (18:25)
[2018-05-22] MEDS ORDERED: CARVEDILOL12.5 MG PO (18:27)
[2018-05-23] VITALS (7 sets, daily range): BP systolic 106–152; BP diastolic 54–93
[2018-05-24] VITALS: BP 118/67
[2018-05-24 08:00] VITALS: BP 128/88
[2018-05-24 12:00] VITALS: BP 104/57
[2018-05-24 16:00] VITALS: BP 130/84
[2018-05-24 20:00] VITALS: BP 141/91; BP 150/82
[2018-05-25] VITALS: BP 138/70
[2018-05-25 08:00] VITALS: BP 120/74
[2018-05-25 12:00] VITALS: BP 118/72
[2018-05-25] MEDS ORDERED: MUCINEX1200 M1 PO (15:53)
[2018-05-25 16:00] VITALS: BP 131/88
== END 2018-05-25 18:10 | disposition home or self-care (01) | DRG 191 ==
LOC: ED 12:17 → 4E 13:55 → EDHOLD 13:55 → 4E 14:39
PROVIDERS: Emergency Medicine
DX: J44.1 Chronic obstructive pulmonary disease with (acute) exacerbation (principal); I50.22 Chronic systolic (congestive) heart failure; I42.9 Cardiomyopathy, unspecified; I13.0 Hypertensive heart and chronic kidney disease with heart failure and stage 1 through stage 4 chronic kidney disease, or unspecified chronic kidney disease; G47.33 Obstructive sleep apnea (adult) (pediatric); E66.8 Other obesity; F41.1 Generalized anxiety disorder; E11.22 Type 2 diabetes mellitus with diabetic chronic kidney disease; N18.3 Chronic kidney disease, stage 3 (moderate); E78.2 Mixed hyperlipidemia; I25.10 Atherosclerotic heart disease of native coronary artery without angina pectoris; E11.65 Type 2 diabetes mellitus with hyperglycemia; T38.0X5A Adverse effect of glucocorticoids and synthetic analogues, initial encounter; Y92.89 Other specified places as the place of occurrence of the external cause; Z87.891 Personal history of nicotine dependence; Z95.810 Presence of automatic (implantable) cardiac defibrillator; Z68.35 Body mass index [BMI] 35.0-35.9, adult; Z82.49 Family history of ischemic heart disease and other diseases of the circulatory system; Z88.1 Allergy status to other antibiotic agents; Z88.8 Allergy status to other drugs, medicaments and biological substances; Z88.0 Allergy status to penicillin

== ENCOUNTER 2018-06-12 18:12 | Inpatient (IN) | payer OTHER, MEDICARE ==
[~2018-06-12] VITALS: Ht 177.8 cm; Wt 114.0 kg
--- NOTE | ~2018-06-12 | DS ---
[place], [place] DISCHARGE SUMMARY NAME: BIMAL FLORES UNIT #: [id number] ROOM: 520 DOCTOR: KEVIN BALLESTEROS MD BIRTHDATE: [birth year] DOS: 06/17/2018 The patient was admitted to the hospital under Dr. Henry's service on 06/12, discharged on 06/17. HOSPITAL COURSE: This patient is very well known to us, comes in with complaints of difficulty breathing. Please refer to H and P and notes for further details. After admission, he was placed on appropriate treatment plan with steroids and antibiotics. He continued to be short of breath and so Dr. Shah took him for a bronchoscopy. After bronchoscopy, the patient felt much better and his bronch cultures have come back negative. The patient is overall stable and improved. So, the plan is to discharge him to home on 06/[address] Shah sees him and clears him for discharge. DISCHARGE MEDICATIONS: Will be a tapering dose of prednisone, doxycycline 100 mg twice daily for 7 days and home medications. KEVIN BALLESTEROS MD CM:DISCHARG [id number] KEVIN BALLESTEROS MD 06/27/18 0058 interface
--- NOTE | ~2018-06-12 | PR ---
[place], [place] PROGRESS NOTE [id number] UNIT #: [id number] ROOM: 520 DOCTOR: KEVIN BALLESTEROS MD BIRTHDATE: [birth year] DOS: SUBJECTIVE: The patient is doing better, does not have any new complaints. OBJECTIVE: VITAL SIGNS: Graphic trend shows a pressure 148/88, pulse of 95, respirations 20, temperature 98.8. LUNGS: Diminished breath sounds, scattered wheezes which is much improved since admission. HEART: Regular. ABDOMEN: Obese. EXTREMITIES: Without any edema. ASSESSMENT AND PLAN: 1. Acute exacerbation of chronic obstructive pulmonary disease, improving. We will add Pulmicort. 2. Acute tracheobronchitis, status post bronchoscopy. Bronch culture final is normal vanessa, so the patient should be able to go home today on p.o. steroids and antibiotics. 3. Chronic elevation of troponin. Cardiology already saw him. Nothing new has been ordered. 4. Cardiomyopathy without any evidence of congestive heart failure, stable. Plan is to discharge the patient today to home if okay with Dr. Shah. KEVIN BALLESTEROS MD CM:PNTRANS [id number] KEVIN BALLESTEROS MD 06/18/18 0554 interface
--- NOTE | ~2018-06-12 | EKG ---
[place], [place] ELECTROCARDIOGRAM REPORT NAME: BIMAL FLORES UNIT #: [id number] ROOM: 520 DOCTOR: NASEEM DRAFT REPORT BIRTHDATE: [birth year] [facility] Test Date: 2018-06-14 Test Time: 14:54:58 Pat Name: BIMAL FLORES Department: Room: 520 1 Gender: M Software Sales: Arielle Corrales : 1955 Requested By: ROSY RUIZ Order Number: [id number] Reading MD: Rosy Shah MD Measurements Intervals [place] Rate: 90 P: 63 WI: 186 QRS: -16 QRSD: 112 T: 30 QT: 419 QTc: 513 Interpretive Statements Sinus rhythm Borderline intraventricular conduction delay Prolonged QT interval Compared to ECG 06/12/2018 18:29:25 Prolonged QT interval now present Sinus tachycardia no longer present Electronically Signed On 06-17-2018 12:40:00 PST by Rosy Shah MD CM:EKGRPT:ELECTROCARDIOGRAM REPORT 1454 1240 ROSY RUIZ MD EPIPHANY DRAFT REPORT ROSY RUIZ MD
--- NOTE | ~2018-06-12 | PR ---
[place], [place] PROGRESS NOTE [id number] UNIT #: [id number] ROOM: 520 DOCTOR: ANTONIO BASILIO MD BIRTHDATE: [birth year] DOS: 06/16/2018 SUBJECTIVE: The patient's breathing has significantly improved and he has been cleared for discharge by Dr. Shah for tomorrow. OBJECTIVE: VITAL SIGNS: Blood pressure 118/54, heart rate 93 beats per minute, breathing 20 times per minute, temperature 98 degrees Fahrenheit. GENERAL APPEARANCE: The patient is alert and oriented x 3, in no visible distress. HEENT AND NECK: Exam within normal limits. CARDIOVASCULAR SYSTEM: Heart rate is regular in rate and rhythm. S1 and S2 normally audible. LUNGS: Clear to auscultation. ABDOMEN: Soft, nontender. No obvious organomegaly. Bowel sounds are present. EXTREMITIES: Without significant cyanosis or edema. Sputum cultures growing normal vanessa. ASSESSMENT: 1. Acute exacerbation of severe underlying chronic obstructive pulmonary disease with acute over chronic respiratory failure, continues to improve with treatment. 2. Chronically elevated cardiac enzymes, reevaluated by Dr. Figueroa, no further recommendations from him. 3. Mixed hyperlipidemia, treated with Lipitor. 4. Chronic systolic type congestive heart failure, compensated, left ventricular ejection fraction of only 30%. 5. Generalized anxiety disorder, treated and controlled. ANTONIO BASILIO MD CM:PNTRANS [id number] ANTONIO BASILIO MD 06/17/18 0202 interface
--- NOTE | ~2018-06-12 | WRIGHTHP ---
[place], [place] PATIENT HISTORY AND PHYSICAL EXAM NAME: BIMAL FLORES [facility] #: [id number] UNIT #: [id number] ROOM: 520 DOCTOR: ANTONIO BASILIO MD BIRTHDATE: [birth year] DOS: 06/12/2018 HISTORY OF PRESENT ILLNESS: The patient is a 63-year-old gentleman with a past medical history of: 1. Severe underlying COPD and chronic respiratory failure. 2. Generalized anxiety disorder. 3. Benign essential hypertension. 4. Mixed hyperlipidemia. 5. Type 2 diabetes mellitus. 6. Cardiomyopathy with internal cardiac defibrillator placement and left ventricular ejection fraction of 30%. 7. Mixed hyperlipidemia. 8. Type 2 diabetes mellitus. 9. Generalized anxiety disorder. 10. Benign essential hypertension. The patient presented to the Emergency Department with several days of increasing shortness of breath, wheezing, cough, and chest congestion. The patient was diagnosed as having acute exacerbation of COPD and recommended for admission and was admitted to a monitored bed. The patient is still quite short of breath and wheezing. No chest pain, no dizziness or fainting episodes. His tachycardia has improved. REVIEW OF SYSTEMS: RESPIRATORY: Increasing shortness of breath and wheezing. GASTROINTESTINAL: No nausea, vomiting, diarrhea, or constipation. CARDIOVASCULAR SYSTEM: No chest pains or palpitations. FAMILY HISTORY: Noncontributory. HOME MEDICATIONS: The patient takes Symbicort, Coreg, furosemide, glimepiride, hydralazine, Imdur, lorazepam, pravastatin, prednisone, Ranexa, spironolactone, Brilinta, and Ambien at home. ALLERGIES: KNOWN ALLERGIES TO PENICILLIN, DEMEROL, AND VANCOMYCIN. PHYSICAL EXAMINATION: GENERAL: Alert and oriented x 3, in some slight respiratory discomfort, but in no distress. Obesity. VITAL SIGNS: Blood pressure 151/90, breathing 20 times per minute, heart rate of 90 beats per minute, afebrile. HEENT AND NECK: Extraocular movements are intact. Sclerae are anicteric. Oral mucosa is moist and clean. No obvious facial weakness. Neck is supple without any lymphadenopathy. No thyromegaly. No JVD. No carotid arterial bruits. LUNGS: Decreased breath sounds on lung auscultation all over and some expiratory wheezing all around. CARDIOVASCULAR SYSTEM: Heart rate is regular in rate and rhythm. S1 and S2 normally audible. No significant murmur or any other abnormal cardiac sounds. ABDOMEN: Obese. Soft, nontender. No obvious organomegaly. Bowel sounds are present. No obvious herniation. [place], [place] PATIENT HISTORY AND PHYSICAL EXAM [id number] UN[facility] #: [id number] ROOM: [facility] DOCTOR: ANTONIO BASILIO MD BIRTHDATE: [birth year] EXTREMITIES: Without significant cyanosis or edema. Warm to touch. CENTRAL NERVOUS SYSTEM: Alert and oriented x 3. Cranial nerves II-XII are intact. Speech is normal. The patient is able to move all extremities. Normal muscle strength. Deep tendon reflexes are equal on both sides. Plantars were downgoing. IMPRESSION AND PLAN: 1. The patient with acute exacerbation of severe underlying chronic obstructive pulmonary disease with acute over chronic respiratory failure to be treated with corticosteroids, oxygen, nebulizer treatments, and antibiotics. I am also consulting Dr. Shah, the hand washer, to see him. 2. Severe generalized anxiety disorder. The patient requesting his home dose of Ativan here which is 4 times a day. 3. Chronically elevated cardiac enzymes. His chestnut tanner Dr. Figueroa has been consulted. He is chest pain symptom free. 4. Type 2 diabetes mellitus. Monitor blood sugars and treat accordingly. 5. Chronic systolic type congestive heart failure, compensated. The patient has history of defibrillator placement with left ventricular ejection fraction of only 30%. 6. Mixed hyperlipidemia treated with Lipitor. ANTONIO BASILIO MD CM:HISPHYS:PATIENT HISTORY AND PHYSICAL EXAMINATION 52 7 ANTONIO BASILIO MD 06/14/1831 interface
--- NOTE | ~2018-06-12 | PR ---
[place], [place] PROGRESS NOTE [facility]: [id number] #: [id number] ROOM: 520 DOCTOR: ANTONIO BASILIO MD BIRTHDATE: [birth year] DOS: 06/15/2018 SUBJECTIVE: The patient with acute exacerbation of acute end-stage COPD, feeling somewhat better after bronchoscopy today and clearing of his airways. OBJECTIVE: VITAL SIGNS: Blood pressure 105/57, heart rate of 109 beats per minute, breathing 19 times per minute, temperature 98.3 degrees Fahrenheit. GENERAL APPEARANCE: The patient is alert and oriented x 3, in no visible distress. HEENT AND NECK: Exam within normal limits. CARDIOVASCULAR SYSTEM: Heart rate is regular in rate and rhythm. S1 and S2 normally audible. LUNGS: Decreased breath sounds all over and expiratory wheezing with scattered rhonchi. ABDOMEN: Soft, nontender. No obvious organomegaly. Bowel sounds are present. EXTREMITIES: Without significant cyanosis or edema. IMPRESSION: 1. Acute exacerbation of severe underlying chronic obstructive pulmonary disease, status post bronchoscopy with some improvement in breathing. 2. Type 2 diabetes mellitus. Blood sugars being monitored and treated. 3. Generalized anxiety disorder, treated with Ativan as needed. 4. Chronically elevated cardiac enzymes evaluated by his organizational effectiveness director, Dr. Figueroa. 5. Chronic systolic type congestive heart failure, compensated left ventricular ejection fraction of 30%. 6. Mixed hyperlipidemia, treated with Lipitor. ANTONIO BASILIO MD CM:PNTRANS [id number] ANTONIO BASILIO MD 06/16/18 1420 interface
--- NOTE | ~2018-06-12 | PROC NOTE ---
[place], [place] PROCEDURE NOTE [id number] UNIT #: [id number] ROOM: 520 DOCTOR: JESSICA RUIZ MD,ROSY BIRTHDATE: [birth year] DOS: 06/15/2018 PROCEDURE: Bronchoscopy. PREOPERATIVE DIAGNOSES: Severe nonresolving cough with wheezing and shortness of breath with maximal medical management therapy. POSTOPERATIVE DIAGNOSES: 1. Tracheomalacia. 2. Moderate severe impacted mucus and bronchial tree bilaterally. 3. Severe acute tracheobronchitis. PROCEDURE DESCRIPTION: Informed consent obtained for the patient. The patient brought to the OR and placed in supine position. Conscious sedation administered by the Anesthesia Department achieving proper sedation, airway introduced into the mouth. Bronchoscope advanced to the airway into laryngeal area. Epiglottis and vocal cords were seen. The vocal cord noted yellowish in color, moving symmetrically with movements. Bronchoscope and vocal cord and tracheal lumen shows moderate amount of thick mucus secretion with purulent secretion mixture suctioned out the areli level. Moderate amount of similar secretions present in the bilateral endobronchial tree. The secretions suctioned out from the endobronchial tree. Significant inflammatory changes noted in the mucosa. There were no endobronchial structure lesions. Procedure was completed without difficulty. Bronchial washing sent for cultures. Postoperative findings will be discussed with the patient once the patient recovers the effects of acute sedation. ROSY LOPEZ MD CM:PROCNOTE:PROCEDURE NOTE 1320 1821 ROSY RUIZ MD
--- NOTE | ~2018-06-12 | CON ---
[place], [place] REPORT OF CONSULTATION NAME: BIMAL FLORES [facility] #: [id number] UNIT #: [id number] ROOM: 520 DOCTOR: [facility] B[facility] [birth year] DOS: 06/14/2018 CARDIOLOGY CONSULTATION HISTORY OF PRESENT ILLNESS: The patient is a 63-year-old male who came in with history of chronic obstructive and chronic respiratory failure and generalized anxiety, mixed severe dyslipidemia and also hypertension, hypertensive cardiovascular disease and cardiomyopathy with left ventricular systolic dysfunction with ejection fraction of 30% and optimally the current medications. The patient also has type 2 diabetes mellitus and dyslipidemia. The patient presented to the emergency room with complaints of shortness of breath, wheezing and cough. I have seen the patient before and made appropriate adjustment of his medications and his clinical status is improving. The patient also taking diuretics and beta blocking agents and nitrates, pravastatin and also on steroid and Ranexa for the microvascular disease as well as for the angina and also on spironolactone. The patient is on Brilinta, continue after the coronary intervention. ALLERGIES: THE PATIENT IS ALLERGIC TO PENICILLIN, DEMEROL, AND VANCOMYCIN. PHYSICAL EXAMINATION: VITAL SIGNS: Stable. Blood pressure 151/90. LUNGS: Bibasilar rhonchi. Diminished breath sounds at bases. HEART: S1, S2 regular, 2/6 systolic murmur. ABDOMEN: Soft. SKIN: Color is good. DIAGNOSES: Cardiomyopathy, ischemic, severe; hypertensive cardiovascular disease; chronic systolic congestive heart failure, compensates. Continue the current management. Work with Dr. Henry. Follow the patient. There is no cardiovascular intervention at this time. PLAN: We will continue the medical therapy and conservative management. Thank you very much for asking me to see the patient. CASSIE RICHMOND MD CM:CONSTR:REPORT OF CONSULTATION 1116 07/06/18 0753 interface
--- NOTE | ~2018-06-12 | PR ---
[place], [place] PROGRESS NOTE NAME: BIMAL FLORES Walt UNIT #: [id number] ROOM: 520 DOCTOR: ROSY BAL MD BIRTHDATE: [birth year] DOS: 06/15/2018 SUBJECTIVE: The patient's respiratory status remains unchanged with severe cough that remained with shortness of breath with exertion, wheezing or tightness in the chest. He has not been reported symptoms of nausea, vomiting, hematemesis, melena, hematochezia, headache, or diplopia. Denies symptoms of dysuria, suprapubic pain, hematuria. The patient is n.p.o. past midnight and bronchoscopy that was planned to be done this morning as well. Remaining systems reviewed. They were noted all negative. OBJECTIVE: VITAL SIGNS: For the patient which has been recorded showed the temperature noted normal, respiratory rate 18-22, heart rate of 90-93, blood pressure 150/80-143/75. HEENT: Examination shows head was atraumatic. Eyes nonicterus. NECK: Supple. CARDIOVASCULAR: S1, S2 is audible. LUNGS: Reduction in breath sounds with expiratory wheezing without any changes. ABDOMEN: Soft and nontender with mild obesity. Bowel sounds present. EXTREMITIES: Without any acute edema. MUSCULOSKELETAL: Without any acute deformities. CENTRAL NERVOUS SYSTEM: Cranial nerves 2-12 intact. LABORATORY DATA: Troponin, which were done yesterday and this morning was noted as 0.308 and 0.281. Creatinine this morning remains normal. IMPRESSION: 1. Ongoing acute exacerbation of chronic obstructive pulmonary disease, acute tracheobronchitis chronic symptom with acute worsening as well with mucus impaction of major airways. 2. Chronic elevation of troponin for this patient. 3. History of coronary artery disease. 4. Chronic kidney disease stage 3. PLAN OF MANAGEMENT: Proceed with the fiberoptic bronchoscopy as planned. Additional treatment changes will be ordered based on progression of the illness and after bronchoscopy as needed. All other therapy, plan of management to be continued as well. Usual care. Other supportive plan of management and care plan as outlined previously. [place], [place] PROGRESS NOTE NAME: BIMAL FLORES UNIT #: [id number] ROOM: 520 DOCTOR: ROSY BAL MD BIRTHDATE: [birth year] ROSY LOPEZ MD CM:PNMARISOL [id number] ROSY RUIZ MD 06/15/18 1741 interface
--- NOTE | ~2018-06-12 | PR ---
[place], [place] PROGRESS NOTE [facility] [id number] UNIT #: [id number] ROOM: 520 DOCTOR: ANTONIO BASILIO MD BIRTHDATE: [birth year] DOS: 06/14/2018 SUBJECTIVE: The patient with improving shortness of breath, although he still feels quite bad with his breathing. OBJECTIVE: GENERAL APPEARANCE: The patient is alert and oriented x 3, in no visible distress. VITAL SIGNS: Blood pressure 148/62, heart rate of 86 beats per minute, going to 108 beats per minute, breathing 22 times per minute, afebrile. HEENT AND NECK: Exam within normal limits. CARDIOVASCULAR SYSTEM: Heart rate is regular in rate and rhythm. S1 and S2 normally audible. LUNGS: His wheezing in his lungs has improved. He still has decreased breath sounds and expiratory wheezing, but better than before. ABDOMEN: Soft, nontender. No obvious organomegaly. Bowel sounds are present. EXTREMITIES: Without significant cyanosis or edema. IMPRESSION: 1. Acute exacerbation of severe underlying chronic obstructive pulmonary disease with slight improvement with treatment. The patient is scheduled for a bronchoscopy with Dr. Shah tomorrow. 2. Generalized anxiety disorder, treated and controlled with Ativan as needed. 3. Chronically elevated cardiac enzymes, being reevaluated by Dr. Figueroa, his area relief pilot. 4. Type 2 diabetes mellitus. Blood sugar is being monitored and treated. 5. Chronic systolic type congestive heart failure, compensated, left ventricular ejection fraction of only 30%. 6. Mixed hyperlipidemia, treated with Lipitor. ANTONIO BASILIO MD CM:PNTRANS [id number] ANTONIO BASILIO MD 06/14/18 1318 interface
--- NOTE | ~2018-06-12 | CON ---
[place], [place] REPORT OF CONSULTATION NAME: BIMAL FLORES [facility] #: [id number] UNIT #: [id number] ROOM: 520 DOCTOR: JESSICA RUIZ MDROSY BIRTHDATE: [birth year] DOS: 06/14/2018 REQUESTING PHYSICIAN: Dr. Donnie Henry. REASON FOR CONSULTATION: Assess the patient for chronic obstructive pulmonary disease assessment and management. HISTORY OF PRESENT ILLNESS: This is a patient who was known with history of chronic hypoxic respiratory failure and chronic obstructive pulmonary disease, presented to the hospital Emergency Room with the patient has been experiencing increased respiratory symptom about a week or so with chest congestion, shortness breath, wheezing and chest tightness. The patient denies symptoms of hemoptysis. The patient has been admitted to the hospital, currently for the medical management, exacerbation of chronic obstructive pulmonary disease from 06/12/2018. The cough has been noted [id number], which are not responding to the treatment. The patient was also stating all other symptom reported that shortness of breath and wheezing remains unchanged as well and not responded much to the treatment during this hospitalization. Excessive cough reported during day and night time as well. REVIEW OF SYSTEMS: CONSTITUTIONAL: Complaining of general weakness, fatigue and symptoms of fever and chills reported. EYES: Denies burning, redness, or tenderness. EARS, NOSE, AND THROAT: Denies sore throat, hoarseness, otalgia, postnasal drainage or epistaxis. CARDIOVASCULAR: Denies angina pain, edema, pain of the lower extremities. GASTROINTESTINAL: Denies dysphagia, nausea, vomiting, diarrhea, abdominal pain, hematemesis, melena, or hematochezia. SKIN: Denies abnormal lesions or rashes. CENTRAL NERVOUS SYSTEM: The patient denies dizziness, headache, diplopia, or syncopal episodes. Remaining systems were reviewed. They were noted all negative. PAST MEDICAL HISTORY: Noted with hospitalization in 05/2018 for patient's management for: 1. Acute exacerbation of chronic obstructive pulmonary disease at that time as well. 2. History of chronic obstructive pulmonary disease. 3. Chronic hypoxic respiratory failure, use of oxygen 2 liter nasal cannula. 4. Chronic moderate obesity. 5. Ischemic cardiomyopathy. The patient with history of cardiac dysrhythmia with AICD in place. 6. Chronic elevation in troponins. 7. General anxiety disorder. 8. Mixed hyperlipidemia. 9. Type 2 diabetes mellitus. PAST SURGICAL HISTORY: [place], [place] REPORT OF CONSULTATION [facility] [id number] UNIT #: [id number] ROOM: [facility] DOCTOR: ROSY BAL MD BIRTHDATE: [birth year] 1. Lithotripsy. 2. AICD insertion. 3. Cardiac catheterization and coronary stents insertion. SOCIAL HISTORY: The patient is , has 2 children, lives at home. Denies history of alcohol use, illicit drug use. The patient used to smoke half a pack of cigarettes that was discontinued 30 years ago. Smoking started when he was a teenager. FAMILY HISTORY: The patient was noted remarkable for hypertension, coronary artery disease and diabetes mellitus. CURRENT MEDICATIONS: Administered in this hospitalization and e of Solu-Medrol 40 mg b.i.d., Lipitor, Brilinta, Aldactone, Imdur, hydralazine, Lasix, Lexapro, DuoNeb q.4h., Amaryl, Levaquin, Coreg, Zithromax and other medications p.r.n. was also being used. DRUG ALLERGY HISTORY: 1. PENICILLIN CAUSING HIVES. 2. DEMEROL, GI SYMPTOMS. 3. VANCOMYCIN, UNKNOWN ALLERGIES. PHYSICAL EXAMINATION: GENERAL: A 63-year-old white male currently noted to be awake and alert this morning of assessment ____ excessive cough, chest congestion was noted intermittently during the assessment. Height of 5 feet 10 inches, weight of 251 pounds, BMI of 36. VITAL SIGNS: For the patient which has been recorded showed the temperature normal, respiratory rate range between 19-20. Heart rate of 108-86, blood 158/86 to 148/62. Pulse oxygen saturation was recorded on 2 L nasal cannula of oxygen as 94% saturation. HEENT: Moderate obesity. Decreased posterior pharyngeal space, high tongue base crowding of soft tissue structures. CARDIOVASCULAR: S1, S2 audible. LUNGS: The patient noted general reduction of the breath sounds in the lungs bilaterally. The expiratory wheezing was present in the lungs as well. ABDOMEN: Soft, nontender. Bowel sounds present. EXTREMITIES: The patient was noted without any acute edema, clubbing or cyanosis. MUSCULOSKELETAL: Noted without any acute deformities. CENTRAL NERVOUS SYSTEM: Cranial nerves 2-12 intact. LABORATORY DATA: Lactic acid on 06/12/2018 was normal. CMP of 06/12/2018, glucose 179, BUN of 20, creatinine 1.51. Troponin 0.350. CBC on 06/12/2018, normal WBC count, hemoglobin and hematocrit and platelets. PT and PTT was noted as normal. One view chest x-ray that was done on this admission on 06/12/2018 for the patient reviewed, shows changes of COPD, hyperinflation without any acute pulmonary infiltration. IMPRESSION: [place], [place] REPORT OF CONSULTATION NAME: BIMAL FLORES UNIT #: [id number] ROOM: [facility] DOCTOR: ROSY BAL MD BIRTHDATE: [birth year] 1. The patient will be currently admitted to the hospital noted with acute exacerbation of chronic obstructive pulmonary disease with acute tracheobronchitis, severe coughing. The patient without any response to the treatment. Also, admitted to the hospital in 05/2008 with incomplete respiratory symptoms from that as well, highly suggestive mucous impaction major airways and nonresolution of the current symptom. 2. Previous history of nicotine abuse, which has been discontinued several years ago by the patient. 3. Chronic obesity and chronic hypoxic respiratory failure as well. 4. Suspicion of obstructive sleep apnea disorder as well. 5. The patient has history of coronary artery disease and multiple other medical problems with significant comorbidities, was known as well. 6. Chronic kidney disease, stage 3. PLAN OF MANAGEMENT: The patient would be continued on current dose of steroids, bronchodilators and other treatment as in progress. No changes need to be done. The patient is getting appropriate treatment. Other chronic obstructive pulmonary disease for the patient maximal medical management at this time. Therapeutic bronchoscopy for the patient suggested to be done and the patient agreed for that and was planned to be done tomorrow morning, n.p.o. past midnight status will be achieved. Continue in the meantime other therapy, plan of management, care plan of treatment and therapies as in progress. Usual care. Supportive care with additional treatment changes will be made based on progression of the illness. ROSY LOPEZ MD CM:CONSTR:REPORT OF CONSULTATION 1337 06/14/18 1835 interface
--- NOTE | ~2018-06-12 | PR ---
[place], [place] PROGRESS NOTE NAME: BIMAL FLORES UNIT #: [id number] ROOM: 520 DOCTOR: ROSY BAL MD BIRTHDATE: [birth year] DOS: 06/16/2018 SUBJECTIVE: The patient has been noted with acute respiratory complaint from yesterday to this morning after bronchoscopy with resolution noted and complete. Shortness of breath still noted with exertion. Denies symptoms of chest pain. The coughing has been currently noted productive with green secretion, which appeared to be somewhat clotted blood expected for the patient because ____ tracheobronchitis and minimal bleeding in the endotracheal tube. OBJECTIVE: VITAL SIGNS: For the patient which required for patient showed a temperature recorded as normal, respiratory rate of 20, heart rate of 92, blood pressure 120/71. Pulse oxygen saturation on room air 92% saturation. HEENT: No acute changes. NECK: Supple. CARDIOVASCULAR: S1, S2 is audible. LUNGS: Moderate decreased breath sounds with mild expiratory wheezing, no crackles. ABDOMEN: Soft and obese, nontender. Bowel sounds present. EXTREMITIES: No edema. LABORATORY DATA: Culture of the sputum for the patient was noted preliminarily normal vanessa. Gram stain of bronch wash, many white blood cells, few epithelial cells, moderate gram-positive cocci in pairs, chains, positive for few gram-negative diplococci. IMPRESSION: The patient with slow resolution of the acute exacerbation of chronic obstructive pulmonary disease and acute bronchitis, status post bronchoscopy with improvement noted partially in the respiratory status with the reduction of the respiratory symptoms as well. Chronic obesity as well and suspicion of obstructive sleep apnea disorder. PLAN AND MANAGEMENT: Monitor culture results. No changes in other medical treatment for the patient at this time. Continue to monitor the patient. We will follow up on the culture for the patient prior to making final discharge disposition, most likely tomorrow. [place], [place] PROGRESS NOTE NAME: BIMAL FLORES UNIT #: [id number] ROOM: 520 DOCTOR: ROSY BAL MD BIRTHDATE: [birth year] ROSY LOPEZ MD CM:PNTRANS [id number] ROSY RUIZ MD 06/17/18 0721 interface
--- NOTE | ~2018-06-12 | PR ---
[place], [place] PROGRESS NOTE [facility]: [facility] [id number] UNIT #: [id number] ROOM: 520 DOCTOR: JESSICA RUIZ MD,ROSY BIRTHDATE: [birth year] DOS: 06/17/2018 PULMONARY PROGRESS NOTE SUBJECTIVE: The patient has shown further improvement and resolution of acute symptoms of coughing. Wheezing has improved significantly. Shortness of breath is resolving. He has been ambulating. He denies chest pain. OBJECTIVE: VITAL SIGNS: Normal temperature, respiratory rate of 22, heart rate of 100, and blood pressure of 148/88. The pulse oxygen saturation at rest on room air is 92% saturation. HEENT: On examination, no acute change. NECK: Supple. CARDIOVASCULAR SYSTEM: S1, S2 is audible. LUNGS: Without any wheezing or crackles. ABDOMEN: Soft, nontender. EXTREMITIES: No acute edema. IMPRESSION: 1. The patient with progressive resolution of acute exacerbation of chronic obstructive pulmonary disease with acute bronchitis. The respiratory culture noted normal vanessa. 2. Chronic obesity with suspicion of obstructive sleep apnea disorder. PLAN OF TREATMENT: The patient could be discharged home on tapering prednisone, oral antibiotic. An outpatient followup suggested for further complaints of the pulmonary status. Other usual therapy, plan of management, care plan of treatment, and therapies. ROSY LOPEZ MD CM:PNTRANS [phone] ROSY RUIZ MD 06/18/18 0001 interface
--- NOTE | ~2018-06-12 | EKG ---
[place], [place] ELECTROCARDIOGRAM REPORT NAME: BIMAL FLORES UNIT #: [id number] ROOM: 504 DOCTOR: NASEEM DRAFT REPORT BIRTHDATE: [birth year] [facility] Test Date: 2018-06-12 Test Time: 18:29:25 Pat Name: BIMAL FLORES Department: er Room: 504 Gender: M Lockstitch Waistband Setter: EKG.DE : 1955 Requested By: ANI SHELBY Order Number: [id number] Reading MD: Nettie Hoff MD Measurements Intervals [place] Rate: 121 P: 10 MN: 126 QRS: -20 QRSD: 106 T: 81 QT: 332 QTc: 471 Interpretive Statements Sinus tachycardia Borderline left axis deviation Abnormal R-wave progression, late transition Baseline wander in lead(s) V6 Compared to ECG 05/22/2018 12:41:35 No significant changes Electronically Signed On 06-13-2018 12:04:06 PST by Nettie Hoff MD CM:EKGRPT:ELECTROCARDIOGRAM REPORT [id number] ANI SANTAANY DRAFT REPORT ANI SHELBY
[~2018-06-12 18:12] MED LIST changes: +ALDACTONE25 MG PO; +CARVEDILOL12.5 MG PO; +MILLIPRED5 MG PO; +MUCINEX1200 M1 PO; +PRAVASTATIN SOD10 MG PO
[2018-06-12 18:16] VITALS: BP 121/77
[2018-06-12 18:44] LABS: BASO % 0.4 % (0.0-1.0); EOS # 0.1 10*3/uL (0.0-0.4); EOS % 0.5 % (1.0-4.0); HEMATOCRIT 36.6 % (42.0-52.0); HEMOGLOBIN 12.4 g/dl (14.0-18.0); LYMPH # 1.8 10*3/uL (1.3-4.4); LYMPH % 18.8 % (27.0-41.0); MEAN CELL VOLUME 91.5 fl (80.0-94.0); MEAN CORPUSCULAR HGB CONC 33.9 g/dl (33.0-37.0); MEAN PLATELET VOLUME 9.8 fl (9.6-12.3); MONO # 0.8 10*3/uL (0.1-1.0); MONO % 7.9 % (3.0-9.0); NEUT # 6.9 10*3/uL (2.3-7.9); PLATELET COUNT AUTOMATED 255 10*3/uL (130-400); RED CELL DISTRI WIDTH 13.8 % (0-14.5); WHITE BLOOD COUNT 9.6 10*3/uL (4.8-10.8)
--- NOTE | 2018-06-12 19:01 | NUR ---
NURSE TO NURSE REPORT GIVEN TO THIS NURSE.
[2018-06-12 19:02] LABS: ALBUMIN 3.3 gm/dl (3.1-4.5); CREATININE 1.51 mg/dL (0.70-1.30); POTASSIUM 3.9 mmol/L (3.5-5.1)
[2018-06-12 19:03] LABS: TROPONIN I 0.35 ng/ml (<0.045)
[2018-06-12 19:16] LABS: ACT PARTIAL THROMBO TIME 20.4 SECONDS (20.8-31.5); INTERNATIONAL NORM RATIO 0.9 (2.0-3.5)
[2018-06-12 19:25] VITALS: BP 125/80
--- NOTE | 2018-06-12 21:25 | NUR ---
NURSE TO NURSE REPORT GIVEN TO GEOFF RN AT BEDSIDE
[2018-06-12 22:00] VITALS: BP 145/82
--- NOTE | 2018-06-12 22:00 | NUR ---
Time: 2199 A 63 year old MALE admitted to 5E under services of DR. CHETNA ISIDRO,ANTONIO Bernard Pt. arrived via bed from ER. Chief complaint: COPD EXACERBATION. PATIENT ORIENTED TO THE FLOOR 5E CALL LIGHT REVIEWED AND DEMONSTRATED. GEOFF GUTIÉRREZ
--- NOTE | 2018-06-12 23:26 | NUR ---
DR. JORGE NOTIFIED OF ROUTINE CONSULT REGARDING ELEVATED TROPONINS. PT HX REVIEWED AND CURRENT SYMPTOMS. NO FURTHER ORDERS GIVEN AT THIS TIME.
[2018-06-13] VITALS: BP 145/97
[2018-06-13 08:00] VITALS: BP 163/98
--- NOTE | 2018-06-13 10:50 | NUR ---
Spoke with Dr. Henry about patients pharmacological treatment plan. See new orders.
[2018-06-13 12:00] VITALS: BP 156/89
--- NOTE | 2018-06-13 13:44 | NUR ---
Ativan given for c/o anxiety. Will monitor.
--- NOTE | 2018-06-13 14:20 | NUR ---
Ativan effective patient satisfied.
[2018-06-13 16:00] VITALS: BP 151/90
--- NOTE | 2018-06-13 19:44 | NUR ---
Ativan given per patient request for c/o anxiety. Will monitor.
--- NOTE | 2018-06-13 19:57 | NUR ---
Spoke with Dr. Shah regarding consult for SOB. No new orders physician to follow up at bedside.
[2018-06-13 20:00] VITALS: BP 146/79
--- NOTE | 2018-06-13 23:14 | NUR ---
24 HR chart check completed.
--- NOTE | 2018-06-13 23:30 | NUR ---
REQUESTED AND RECEIVED AMBIEN AND ATIVAN PER PRN ORDER TO ASSIST WITH SLEEP AND ANXIETY. CALL LIGHT WITHIN REACH. WILL MONITOR FOR EFFECTIVENESS
[2018-06-14] VITALS: BP 158/86; BP 160/90
--- NOTE | 2018-06-14 | NUR ---
PATIENT TRANSFERRED TO ROOM 520 TO BETTER ASSIST ISOLATION NEEDS. ORIENTED TO ROOM. RESPIRATIONS EASY. LUNGS DIMINISHED WITH WHEEZES AND RHONCHI. PULSE OX 98% 2L. HARSH, HACKY NON-PRODUCTIVE COUGH. DRESSING MAINTAINED TO LEFT FOOT. CALL LIGHT WITHIN REACH. NO VOICED COMPLAINTS
--- NOTE | 2018-06-14 02:00 | NUR ---
EARLIER MEDS EFFECTIVE. SLEEPING. RESPIRATIONS EASY. O2 IN USE. CALL LIGHT WITHIN REACH
--- NOTE | 2018-06-14 06:00 | NUR ---
RESTED THROUGHOUT NIGHT WITH NO DISTRESS NOTED. RESPIRATIONS EASY. CALL LIGHT WITHIN REACH. NO VOICED COMPLAINTS THIS SHIFT
--- NOTE | 2018-06-14 06:24 | NUR ---
REQUESTED AND RECEIVED NORCO PER PRN ORDER TO ASSIST WITH ANXIETY. CALL LIGHT WITHIN REACH. WILL MONITOR FOR EFFECTIVENESS
--- NOTE | 2018-06-14 07:30 | NUR ---
PT RESTING IN BED. NO DISTRESS NOTED. SEE SHIFT ASSESSMENT. WILL MONITOR
[2018-06-14 08:00] VITALS: BP 148/62
--- NOTE | 2018-06-14 09:00 | NUR ---
User Support Analyst in to talk to patient. Patient states lives at home alone with his . There are basement steps in the home. Physician: Dr. Lulú Koroma Pharmacy: [facility] Home health services: none Patient's level of ADLs: independent Patient has working utilities: yes DME: O2 @ 2L [place], nebulizer, O2 supplier [employer] Follow-up physician's appointment after d/c: he prefers to make his own follow up appt after discharge Does patient want to access PORTAL?: no Discharge plan discussed with patient. He lives at home alone with his . He is independent in his ADLs and ambulation. Discussed home health care services and he denies any home needs at this time. When medically stable he will be discharged to home. His will transport. ROBBIE GRIFFITH
[2018-06-14 12:00] VITALS: BP 135/79
--- NOTE | 2018-06-14 12:55 | NUR ---
PT REQUESTED AND GIVEN ATIVAN FOR C/O ANXIETY WILL MONITOR
--- NOTE | 2018-06-14 14:00 | NUR ---
ATIVAN HELPED PER PT
--- NOTE | 2018-06-14 14:24 | NUR ---
BIMAL FLORES [id number] Please refer to the physician's history and physical for past medical history, comorbid conditions, and allergies. Diagnosis: COPD EXACERBATION Bobby Score: 19,LOW OR NO RISK WOUND DESCRIPTIONS: Location of the wound: left top of foot Thickness: Partial Size: 0.2cm x 0.1cm x 0.1cm Tunneling: none Undermining: none Sinus Tract: none Presence of Exudate: none Amount: None Color: Red Odor: None Periwound Skin Appearance: Normal Wound edges: approximated Pain (associated with wound): none at time of assessment How does patient state this happened? pt stated yesterday his toenail for his other foot caused the area Surface the patient is resting on: Isoflex SKIN PREVENTION RECOMMENDATION: 1. Pressure redistribution support surface as appropriate 2. Elevate heels 3. Remove boots/TEDS every shift and reapply 4. Head of bed 30 degrees as tolerated 5. Assess nutrition and hydration 6. Manage moisture 7. Avoid the use of containment devices while in bed 8. Use absorptive products on surfaces limit layers of linens on bed 9. Turn and reposition every 1-2 hours in bed and every 1 hour in chair as tolerated 10. Weight shifts every 15 minutes while up in chair 11. Offloading with pillows or device to keep heels elevated off bed 12. Monitor skin at least every shift 13. Inspect under medical devices twice a day WOUND TREATMENT RECOMMENDATIONS: Continue skin tear guidelines. Recommend follow up for wound care in outpatient setting patient refused at this time.
[2018-06-14 16:00] VITALS: BP 134/77
--- NOTE | 2018-06-14 18:16 | NUR ---
C/O ANXIETY AND HEADACHE, REQUESTS MEDICATIONS FOR SAME. MEDICATED WITH ATIVAN AND TYLENOL PER PRN ORDERS. DR RICHMOND IN
--- NOTE | 2018-06-14 19:20 | NUR ---
dr hester called and notified of critical troponin no new orders at this time
[2018-06-14 20:00] VITALS: BP 133/68
[2018-06-15] VITALS (9 sets, daily range): BP systolic 105–158; BP diastolic 57–101
--- NOTE | 2018-06-15 07:42 | NUR ---
DR RICHMOND PAGED TO NOTIFY OF CRITICAL TROPONIN
--- NOTE | 2018-06-15 07:43 | NUR ---
PT TO SURGERY VIA BED NO DISTRESS NOTED
--- NOTE | 2018-06-15 08:00 | NUR ---
DR RICHMOND PAGED AGAIN
--- NOTE | 2018-06-15 09:00 | NUR ---
Dietary Director in to see patient. He is currently not in his room. He is in surgery having a bronchoscopy. Will follow up at a later time.
--- NOTE | 2018-06-15 10:51 | NUR ---
PT REQUESTED AND GIVEN ATIVAN FOR C.O ANXIETY WILL MONITOR
--- NOTE | 2018-06-15 14:44 | NUR ---
Ballistician in to see to patient. He is up ambulating in his room with family at the bedside. No new needs or request at this time. He denies any home needs. When medically stable he will be discharged to home.
--- NOTE | 2018-06-15 18:40 | NUR ---
PT REQUESTED AND GIVEN ATIVAN FOR C/O ANXIETY WILL MMONITOR
--- NOTE | 2018-06-15 18:54 | NUR ---
DR BASILIO NOTIFIED OF CRITICAL ELEVATED TROPONINS
--- NOTE | 2018-06-15 20:24 | NUR ---
24 HR chart check completed.
--- NOTE | 2018-06-15 21:00 | NUR ---
SITTING IN BEDSIDE CHAIR. RESPIRATIONS EASY. LUNGS DIMINISHED WITH WHEEZES AND RHONCHI. PULSE OX 91% 2L HUMIDIFIED. CLAIMS COUGH PROD FOR YELLOW. CALL LIGHT WITHIN REACH. NO VOICED COMPLAINTS
--- NOTE | 2018-06-15 22:30 | NUR ---
REQUESTED AND RECEIVED ATIVAN PER PRN ORDER TO ASSIST WITH ANXIETY. WILL MONITOR FOR EFFECTIVENESS
[2018-06-16] VITALS: BP 114/53
--- NOTE | 2018-06-16 | NUR ---
MEDS EFFECTIVE, SLEEPING. RESPIRATIONS EASY. VSS. O2 IN USE
--- NOTE | 2018-06-16 05:55 | NUR ---
AWAKE, ANXIOUS. MEDICATED WITH ATIVAN PER PRN ORDER. WILL MONITOR FOR EFFECTIVENESS
[2018-06-16 08:00] VITALS: BP 118/54
--- NOTE | 2018-06-16 08:00 | NUR ---
PT RESTING IN BED. NO DISTRESS NOTED. WILL MONITOR
--- NOTE | 2018-06-16 09:00 | NUR ---
[employer] Fil[employer] Machine Operator in to see to patient. No new needs or request at this time. He denies any home needs. When medically stable he will be discharged to home.
[2018-06-16 12:00] VITALS: BP 129/71
--- NOTE | 2018-06-16 12:02 | NUR ---
PT REQUESTED AND GIVEN ATIVAN FOR C/O ANXIETY WILL MONITOR
--- NOTE | 2018-06-16 12:34 | NUR ---
PT STATES THAT ATIVAN IS HELPING. WILL MONITOR
--- NOTE | 2018-06-16 14:00 | NUR ---
PT REFUSED DRESSING TO FOOT
[2018-06-16 15:06] LABS: ACID FAST SPEC PROCESSING Concentration (.)
[2018-06-16 16:00] VITALS: BP 131/77
--- NOTE | 2018-06-16 17:54 | NUR ---
PT REQUESTED AND GIVEN ATIVAN FOR ANXIETY WILL MONITOR
[2018-06-16 20:00] VITALS: BP 126/62
--- NOTE | 2018-06-16 20:22 | NUR ---
ATIVAN EFFECTIVE. WILL MONITOR
--- NOTE | 2018-06-16 22:27 | NUR ---
PT SITTING UP IN CHAIR. NO DISTRESS NOTED. WILL MONITOR
[2018-06-17] VITALS: BP 153/77
--- NOTE | 2018-06-17 00:30 | NUR ---
ASSUMED CARE FOR THIS PT. PT SITTING IN RECLINER CHAIR IN ROOM WATCHING TV. PT MEDICATED W/AMBIEN AND ATIVAN PER PT REQUEST TO HELP PROMOTE SLEEP. CALL LIGHT IN REACH.
--- NOTE | 2018-06-17 01:30 | NUR ---
PT RESTING QUIETLY IN BED AT THIS TIME. NO FURTHER S/S OF PAIN/ANXIETY. CALL LIGHT IN REACH.
--- NOTE | 2018-06-17 05:24 | NUR ---
24 HR chart check completed.
[2018-06-17 08:00] VITALS: BP 148/88
[2018-06-17] MEDS ORDERED: LEVAQUIN500 M2 PO (08:27)
[2018-06-17] MEDS ORDERED: PREDNISONE5 MG PO (08:27)
--- NOTE | 2018-06-17 09:52 | NUR ---
PT REFUSED D/C PHOTOS OF FOOT BECAUSE HE STATED "THATS CRAZY, I JUST BLED ALOT I HAVE NO WOUND".
--- NOTE | 2018-06-17 10:50 | NUR ---
Discharge instructions reviewed with patient/family. Patient receptive and verbalizes understanding. Follow-up care arranged. Written instructions given to patient/family. KIMBER OLIVIER
[2018-07-27 08:13] LABS: ACID FAST CULTURE Negative (.)
== END 2018-06-17 10:50 | disposition home or self-care (01) | DRG 189 ==
LOC: ED 18:12 → 5E 20:28 → EDHOLD 20:28 → 5E 20:54
PROVIDERS: Internal Medicine Cardiovascular Disease; Internal Medicine Critical Care Medicine; Nurse Practitioner Family; ADMIT Internal Medicine
PROC: 0BC58ZZ Extirpation of Matter from Right Middle Lobe Bronchus, Via Natural or Artificial Opening Endoscopic (ICD-10-PCS; principal; 2018-06-15)
PROC: 0BC88ZZ Extirpation of Matter from Left Upper Lobe Bronchus, Via Natural or Artificial Opening Endoscopic (ICD-10-PCS; principal; 2018-06-15)
PROC: 0BC48ZZ Extirpation of Matter from Right Upper Lobe Bronchus, Via Natural or Artificial Opening Endoscopic (ICD-10-PCS; principal; 2018-06-15)
PROC: 0BC18ZZ Extirpation of Matter from Trachea, Via Natural or Artificial Opening Endoscopic (ICD-10-PCS; principal; 2018-06-15)
PROC: 0BC68ZZ Extirpation of Matter from Right Lower Lobe Bronchus, Via Natural or Artificial Opening Endoscopic (ICD-10-PCS; principal; 2018-06-15)
PROC: 0BC98ZZ Extirpation of Matter from Lingula Bronchus, Via Natural or Artificial Opening Endoscopic (ICD-10-PCS; principal; 2018-06-15)
PROC: 0BCB8ZZ Extirpation of Matter from Left Lower Lobe Bronchus, Via Natural or Artificial Opening Endoscopic (ICD-10-PCS; principal; 2018-06-15)
PROC: 0BC38ZZ Extirpation of Matter from Right Main Bronchus, Via Natural or Artificial Opening Endoscopic (ICD-10-PCS; principal; 2018-06-15)
PROC: 0BC78ZZ Extirpation of Matter from Left Main Bronchus, Via Natural or Artificial Opening Endoscopic (ICD-10-PCS; principal; 2018-06-15)
DX: J96.21 Acute and chronic respiratory failure with hypoxia (principal); J44.1 Chronic obstructive pulmonary disease with (acute) exacerbation; I50.22 Chronic systolic (congestive) heart failure; I42.9 Cardiomyopathy, unspecified; T17.490A Other foreign object in trachea causing asphyxiation, initial encounter; T17.590A Other foreign object in bronchus causing asphyxiation, initial encounter; J44.0 Chronic obstructive pulmonary disease with (acute) lower respiratory infection; I13.2 Hypertensive heart and chronic kidney disease with heart failure and with stage 5 chronic kidney disease, or end stage renal disease; F41.1 Generalized anxiety disorder; E78.2 Mixed hyperlipidemia; Z88.0 Allergy status to penicillin; Z88.1 Allergy status to other antibiotic agents; E78.5 Hyperlipidemia, unspecified; I25.5 Ischemic cardiomyopathy; E66.01 Morbid (severe) obesity due to excess calories; N18.3 Chronic kidney disease, stage 3 (moderate); X58.XXXA Exposure to other specified factors, initial encounter; Y93.89 Activity, other specified; Y92.89 Other specified places as the place of occurrence of the external cause; Y99.8 Other external cause status; J39.8 Other specified diseases of upper respiratory tract; J20.9 Acute bronchitis, unspecified; Z68.36 Body mass index [BMI] 36.0-36.9, adult; Z95.810 Presence of automatic (implantable) cardiac defibrillator

== ENCOUNTER → 2018-07-26 | Outpatient (CLI) | payer OTHER, MEDICARE ==
[~2018-07-26] MED LIST changes: +ATARAX,VISTARIL10 MG PO; +LEVAQUIN500 M2 PO
== END | disposition home or self-care (01) ==
LOC: LAB 11:39
DX: R53.83 Other fatigue (principal)

== ENCOUNTER → 2018-09-20 | Outpatient (CLI) | payer OTHER, MEDICARE ==
--- NOTE | ~2018-09-20 | EKG ---
[place], [place] ELECTROCARDIOGRAM REPORT NAME: BIMAL FLORES UNIT #: [id number] ROOM: DOCTOR: EPIPHANY DRAFT REPORT BIRTHDATE: [birth year] [facility] Test Date: 2018-09-20 Test Time: 08:01:59 Pat Name: BIMAL FLORES Department: Room: Gender: M Policy Value Calculator: Celeste Alexandra : 1955 Requested By: ANTELMO FIGUEROA Order Number: [id number] Reading MD: Antelmo Figueroa MD Measurements Intervals [place] Rate: 91 P: -2 MN: 68 QRS: -18 QRSD: 114 T: 66 QT: 428 QTc: 527 Interpretive Statements Unknown rhythm, irregular rate Short MN interval Borderline intraventricular conduction delay Prolonged QT interval Artifact in lead(s) II,aVR,V5 Compared to ECG 06/14/2018 14:54:58 Short MN interval now present Sinus rhythm no longer present Electronically Signed On 09-25-2018 4:25:17 PDT by Antelmo Figueroa MD CM:EKGRPT:ELECTROCARDIOGRAM REPORT [id number] ANTELMO FIGUEROA MD [facility] EPIPHANY DRAFT REPORT ANTELMO FIGUEROA MD [facility]
[2018-09-20 08:04] LABS: HEMATOCRIT 37.6 % (42.0-52.0); HEMOGLOBIN 12.3 g/dl (14.0-18.0); MEAN CELL VOLUME 92.8 fl (80.0-94.0); MEAN CORPUSCULAR HGB 30.4 pg (27.0-31.0); MEAN CORPUSCULAR HGB CONC 32.7 g/dl (33.0-37.0); MEAN PLATELET VOLUME 9.7 fl (9.6-12.3); RED BLOOD COUNT 4.05 10*6/uL (4.50-5.90); RED CELL DISTRI WIDTH 13.4 % (0-14.5)
[2018-09-20 08:22] LABS: BUN 17 mg/dl (7-24); CHLORIDE 105 mmol/L (98-107); CREATININE 1.27 mg/dL (0.70-1.30); POTASSIUM 3.4 mmol/L (3.5-5.1); SODIUM 138 mmol/L (136-145)
== END | disposition home or self-care (01) ==
LOC: LAB 07:34
PROVIDERS: Internal Medicine Cardiovascular Disease
DX: Z01.810 Encounter for preprocedural cardiovascular examination (principal); T82.110A Breakdown (mechanical) of cardiac electrode, initial encounter; E11.9 Type 2 diabetes mellitus without complications; I10 Essential (primary) hypertension

== ENCOUNTER → 2019-01-16 | Outpatient (CLI) | payer OTHER, MEDICARE ==
[2019-01-16 08:56] LABS: BASO % 0.5 % (0.0-1.0); EOS # 0.1 10*3/uL (0.0-0.4); EOS % 1.7 % (1.0-4.0); HEMATOCRIT 36.3 % (42.0-52.0); HEMOGLOBIN 11.7 g/dl (14.0-18.0); LYMPH # 2.3 10*3/uL (1.3-4.4); LYMPH % 30.4 % (27.0-41.0); MEAN CELL VOLUME 88.5 fl (80.0-94.0); MEAN CORPUSCULAR HGB 28.5 pg (27.0-31.0); MEAN CORPUSCULAR HGB CONC 32.2 g/dl (33.0-37.0); MEAN PLATELET VOLUME 10.2 fl (9.6-12.3); MONO # 0.6 10*3/uL (0.1-1.0); MONO % 7.3 % (3.0-9.0); NEUT # 4.6 10*3/uL (2.3-7.9); NEUT % 59.6 % (47.0-73.0); PLATELET COUNT AUTOMATED 301 10*3/uL (130-400); RED CELL DISTRI WIDTH 15.9 % (0-14.5); WHITE BLOOD COUNT 7.6 10*3/uL (4.8-10.8)
[2019-01-16 09:10] LABS: BUN 14 mg/dl (7-24); CHLORIDE 106 mmol/L (98-107); CHOLESTEROL 165 mg/dL (<200); CREATININE 1.18 mg/dL (0.70-1.30); HDL CHOLESTEROL 40 mg/dl (40-60); LDL CHOLESTEROL 86 mg/dL (9-159); POTASSIUM 3.2 mmol/L (3.5-5.1); SGOT/AST 30 IU/L (3-35); SGPT/ALT 36 U/L (12-78); SODIUM 139 mmol/L (136-145); TRIGLYCERIDES 196 mg/dl (<150); VLDL CHOLESTEROL 39 mg/dL (6-40)
== END | disposition home or self-care (01) ==
LOC: LAB 08:12
PROVIDERS: Internal Medicine Cardiovascular Disease
DX: I25.10 Atherosclerotic heart disease of native coronary artery without angina pectoris (principal); R58 Hemorrhage, not elsewhere classified

== ENCOUNTER 2019-03-02 07:07 | Inpatient (IN) | payer OTHER, MEDICARE ==
[2019-03-02] VITALS (7 sets, daily range): BP systolic 116–132; BP diastolic 61–79
[~2019-03-02] VITALS: Ht 177.8 cm; Wt 108.5 kg
--- NOTE | ~2019-03-02 | PR ---
[place], [place] PROGRESS NOTE [id number] UNIT #: [id number] ROOM: 426 DOCTOR: ANTONIO BASILIO MD BIRTHDATE: [birth year] DOS: 03/04/2019 SUBJECTIVE: The patient is doing well. OBJECTIVE: VITAL SIGNS: Blood pressure 131/79, heart rate of 97 beats per minute, breathing 20 times per minute, temperature 98.4 degrees Fahrenheit. GENERAL APPEARANCE: The patient is alert and oriented x 3, in no visible distress. HEENT AND NECK: Exam within normal limits. CARDIOVASCULAR SYSTEM: Heart rate is regular in rate and rhythm. S1 and S2 normally audible. LUNGS: Clear to auscultation. ABDOMEN: Soft, nontender. No obvious organomegaly. Bowel sounds are present. EXTREMITIES: Without significant cyanosis or edema. IMPRESSION: 1. The patient with mildly elevated troponin I levels, ordered a cardiac stress test tomorrow by automotive service cashier, Dr. Figueroa. 2. Acute over chronic systolic type congestive heart failure with some increased shortness of breath, improved with treatment. The patient was diuresed and echocardiogram ordered. 3. Acute exacerbation of chronic obstructive pulmonary disease with increased shortness of breath, improved with wheezing. 4. Benign essential hypertension, treated and controlled. 5. Type 2 diabetes mellitus. Blood sugars being monitored and treated. 6. Generalized anxiety disorder. The patient appears comfortable. ANTONIO BASILIO MD CM:PNTRANS 1515 ANTONIO BASILIO MD 03/05/194 interface
--- NOTE | ~2019-03-02 | DS ---
[place], [place] DISCHARGE SUMMARY [id number] UNIT #: [id number] ROOM: 426 DOCTOR: ANTONIO BASILIO MD BIRTHDATE: [birth year] DOS: 03/05/2019 DISCHARGE DIAGNOSES: 1. The patient with mildly elevated troponin levels, went for cardiac stress test today as recommended by Dr. Figueroa. 2. Acute over chronic systolic type congestive heart failure. 3. Acute exacerbation of chronic obstructive pulmonary disease. 4. Benign essential hypertension. 5. Type 2 diabetes mellitus 6. Corticosteroid-induced hyperglycemia. 7. Generalized anxiety disorder. 8. Obesity, BMI of 33.8. 9. History of coronary artery disease of the [place] vessels with coronary artery bypass graft. 10. History of chronic troponin elevation. 11. Mixed hyperlipidemia. 12. History of heavy nicotine smoke dependence. 13. Chronic back pains. HOSPITAL COURSE: 1. The patient was admitted by Dr. Lulú Koroma from the Emergency Department with complaints of increased shortness of breath and he was found to have minimally elevated cardiac enzymes. Dr. Figueroa, his extracting machine operator decided to order a cardiac stress test, which is in process today. The patient is asymptomatic now and if the stress test is normal, he can be discharged to home later in the day. 2. Acute exacerbation of COPD, treated with bronchodilators, corticosteroids, oxygen. Dr. Shah followed the patient and he will be sent home on tapering down dose of corticosteroids and bronchodilators. His breathing has improved. 3. Benign essential hypertension is being treated and controlled. 4. Type 2 diabetes mellitus with corticosteroid-induced hyperglycemia should improve as his corticosteroids are being discontinued. 5. Generalized anxiety disorder, treated and controlled. 6. Obesity, BMI of 33. The patient was followed by Dietary. LABORATORY DATA: Troponin I levels ranging between 0.7 to 0.9 mostly. Chest x-ray without acute abnormality. ProBNP level of 700. CT angiogram of the chest without any signs of pulmonary embolism. DISCHARGE MANAGEMENT: Furosemide 60 mg a day, isosorbide 60 mg a day, Lexapro 30 mg a day, Brilinta 90 mg b.i.d., Ranexa 1000 mg b.i.d., hydroxyzine 25 mg at bedtime, glimepiride 2 mg at bedtime, Lipitor 15 mg daily, hydralazine 50 mg t.i.d., DuoNeb q.i.d., Ambien 10 mg at bedtime p.r.n. for sleep, lorazepam p.r.n. for anxiety. [place], [place] DISCHARGE SUMMARY NAME: BIMAL FLORES [facility] UNIT #: [id number] ROOM: 426 DOCTOR: ANTONIO BASILIO MD BIRTHDATE: [birth year] ANTONIO BASILIO MD CM:DISCHARG [id number] ANTONIO BASILIO MD 03/05/19 1350 interface
--- NOTE | ~2019-03-02 | WRIGHTHP ---
[place], [place] PATIENT HISTORY AND PHYSICAL EXAM NAME: BIMAL FLORES [facility] #: [id number] UNIT #: [id number] ROOM: 426 DOCTOR: KEVIN BALLESTEROS MD BIRTHDATE: [birth year] DOS: 03/02/2019 HISTORY OF PRESENT ILLNESS: This patient is 64 years old. The patient is very well known to us, he comes into the Emergency Room with complaints of shortness of breath. He denies having any chest pains, palpitations, does not have any nausea or emesis, but has had some epigastric pain as I had seen him in the office, was placed on proton pump inhibitors. CT of the abdomen and pelvis was already scheduled. After being seen in the Emergency Room, he was evaluated. After evaluation, he was admitted with diagnosis of exacerbation of COPD. The patient denies having any complaints this morning, but he continues to be short of breath even with minimal amounts of activity. PAST MEDICAL HISTORY: Significant for: 1. Coronary artery disease, history of CABG. 2. Chronic troponin elevation. 3. Mixed hyperlipidemia. 4. COPD. 5. History of heavy nicotine abuse. 6. Generalized anxiety disorder. 7. Chronic back pain. 8. Type 2 diabetes mellitus. 9. History of cardiomyopathy, no echocardiogram is available as of recent. MEDICATIONS: Medications that he is on are Lexapro 30 daily, Lasix 40 daily, glimepiride 2 mg at bedtime, hydralazine 50 t.i.d., hydroxyzine 25 at bedtime, isosorbide 60 daily, lorazepam 1 mg q.i.d., omeprazole 40 daily, Pravachol 60 daily, Ranexa 1000 b.i.d., and Brilinta 90 b.i.d. SOCIAL HISTORY: Nonsmoker, does not use any alcohol now. PHYSICAL EXAMINATION: GENERAL: He is awake and alert and oriented. VITAL SIGNS: Graphic trend shows pressure of 132/61, pulse of 69, respirations 18, temperature 98.6. LUNGS: Diminished breath sounds. A few scattered rhonchi heard. HEART: Regular. ABDOMEN: Obese, some tenderness in the epigastric area noted. EXTREMITIES: Without any edema. ASSESSMENT AND PLAN: 1. Acute onset of shortness of breath with mild systolic congestive heart failure. Check echocardiogram. IV diuretics. Consultation with Dr. Figueroa. The patient has chronic troponin elevation. 2. Chronic obstructive pulmonary disease with mild exacerbation. The patient is placed on IV steroids and antibiotics. A CT of the chest showed atelectasis. Consult Dr. Shah. 3. Benign hypertension, controlled. 4. Type 2 diabetes mellitus, non-insulin dependent. Continue blood sugars q.i.d., ADA diet. 5. Generalized anxiety disorder. Continue home medications. [place], [place] PATIENT HISTORY AND PHYSICAL EXAM [facility]: [id number] UNIT #: [id number] ROOM: 426 DOCTOR: KEVIN BALLESTEROS MD BIRTHDATE: [birth year] KEVIN BALLESTEROS MD CM:HISPHYS:PATIENT HISTORY AND PHYSICAL EXAMINATION 1247 1323 KEVIN BALLESTEROS MD 03/02/19 1320 interface
--- NOTE | ~2019-03-02 | PR ---
[place], [place] PROGRESS NOTE [id number] UNIT #: [id number] ROOM: 426 DOCTOR: JESSICA RUIZ MD,ROSY BIRTHDATE: [birth year] DOS: 03/04/2019 SUBJECTIVE: The patient noted comfortable at this time, resting in the bed this morning of assessment. He had not been reported symptoms of acute shortness of breath, coughing, chest pain or other symptoms, which were noted on admission. OBJECTIVE: VITAL SIGNS: Normal temperature, respiratory rate 20, heart rate 104, blood pressure 131/79. The pulse oxygen saturation recorded on room air was 95% saturation. HEENT: Examination shows head was atraumatic. Eyes nonicterus. NECK: Supple. CARDIOVASCULAR: S1, S2 is audible. LUNGS: Noted without any wheeze or crackles. ABDOMEN: Soft, nontender. Bowel sounds present. EXTREMITIES: The patient noted without any acute edema. IMPRESSION: The patient with stable respiratory status with improvement, continued gradually and progressively of the respiratory symptom as well. PLAN OF CARE: No change in plan of management. Cardiac workup noted in progress. The patient did have a stress testing done tomorrow for the discharge planning. No change in pulmonary standpoint, the needs to be done. ROSY LOPEZ MD CM:PNTRANS 1329 1841 ROSY RUIZ MD 03/04/19 1838 interface
--- NOTE | ~2019-03-02 | PR ---
[place], [place] PROGRESS NOTE NAME: BIMAL FLORES UNIT #: [id number] ROOM: 426 DOCTOR: JESSICA RUIZ MD,ROSY BIRTHDATE: [birth year] DOS: 03/05/2019 SUBJECTIVE: He has been noted comfortable at this time. Shortness of breath was noted minimal. Denies symptoms of chest pain, coughing or wheezing. OBJECTIVE: VITAL SIGNS: For the patient recorded normal temperature, respiratory rate 18, heart rate 98, blood pressure 152/82. The pulse oxygen saturation recorded as 95% saturation on room air. HEENT: Chronic obesity. Head was atraumatic. Eyes nonicterus. NECK: Supple. CARDIOVASCULAR: S1, S2 audible. LUNGS: Noted without any wheezing or crackles at the present time. ABDOMEN: Soft, nontender. Bowel sounds present. EXTREMITIES: No new change. IMPRESSION: 1. Stable respiratory status noted, pulmonary standpoint with stable chronic obstructive pulmonary disease. 2. The patient with atypical chest pain, which has seemed to be resolved at this time, awaiting cardiac stress testing. PLAN OF MANAGEMENT: No changes in the plan of care. Continue current plan of care at this time as in progress. Other additional treatment changes will be recommended based on progression of his illness. ROSY LOPEZ MD CM:PNTRANS 1105 1723 ROSY RUIZ MD 03/05/19 1720 interface
--- NOTE | ~2019-03-02 | CON ---
[place], [place] REPORT OF CONSULTATION NAME: [facility] FL[facility]ES [id number] UNIT #: [id number] ROOM: 426 DOCTOR: [facility]RO [facility] B[facility] [birth year] DOS: 03/03/2019 CARDIOLOGY CONSULTATION HISTORY OF PRESENT ILLNESS: The patient is a 64-year-old male, obese individual, came to the Emergency Room with progressive shortness of breath, cough, and also precordial chest discomfort. The patient was found to have an elevated troponin and underlying inflammatory disease was concerned and chest x-ray with mild cardiomegaly, no critical active pulmonary disease noted. CT of the chest was done, cardiomegaly, no pericardial effusion, no lymphadenopathy in the chest, no aneurysm noted, no pulmonary emboli noted. So the chest discomfort most likely could be related to non-ST elevation myocardial infarction and coronary artery disease. No recent catheterization or coronary intervention done. Stress also appears to be more than a year. The patient came with progressive shortness of breath. Past history includes coronary artery disease, coronary bypass surgery, and dyslipidemia. If there is any progressive variation in the troponin, underlying non-ST elevation myocardial infarction is a concern, considering repeating the troponins. The patient has dyslipidemia, chronic obstructive airway disease, anxiety, type 2 diabetes mellitus, and the patient also has cardiomyopathy and chronic back pain. MEDICATIONS: The patient is on core measure medications at this time including diuretics, isosorbide, diabetic medications, hydralazine, and Brilinta. Since the patient had coronary intervention with coronary stenting, Pravachol, Ranexa, and beta blocking agents. SOCIAL HISTORY: No history of smoking at this time. No alcohol intake. PHYSICAL EXAMINATION. GENERAL: Alert, not in any acute distress. VITAL SIGNS: Stable. Blood pressure is 132/61, pulse is 70, respiratory rate 16. ABDOMEN: Soft, obese. RECTAL AND GENITAL: Deferred. HEART: S1 and S2 regular, 1-2/6 systolic murmur. IMPRESSION: Non-ST elevation myocardial infarction; recurrence of chronic obstructive pulmonary disease, being managed by Dr. Shah, Critical Care Pulmonary; hypertensive cardiovascular disease; diabetes mellitus type 2; coronary artery disease with coronary bypass surgery, coronary stenting. PLAN: We will continue the current management. If troponin continues to be variable and increased, consider ____, otherwise Lexiscan with sestamibi will be done by Dr. Henry or Dr. Koroma on Tuesday. I will continue to follow the patient, I know the patient for quite some time. [place], [place] REPORT OF CONSULTATION NAME: BIMAL FLORES UNIT #: [id number] ROOM: 42 DOCTOR: [facility]IDRO [facility] BIR[facility]: [birth year] CASSIE RICHMOND MD CM:CONSTR:REPORT OF CONSULTATION 0748 03/03/19 1002 interface ANTONIO HENRY MD and KEVIN KOROMA MD
--- NOTE | ~2019-03-02 | EKG ---
[place], [place] ELECTROCARDIOGRAM REPORT NAME: BIMAL FLORES UNIT #: [id number] ROOM: 426 DOCTOR: NASEEM DRAFT REPORT BIRTHDATE: [birth year] [facility] Test Date: 2019-03-02 Test Time: 10:08:25 Pat Name: BIMAL FLORES Department: Room: 426 Gender: M Associate Curator: Belinda Sousa : 1955 Requested By: ELAINE NAVA Order Number: [id number] Reading MD: Nettie Hoff Measurements Intervals [place] Rate: 107 P: 29 HI: 135 QRS: -11 QRSD: 112 T: 130 QT: 372 QTc: 497 Interpretive Statements Sinus tachycardia Inferior infarct, old Lateral leads are also involved Baseline wander in lead(s) II,aVF,V3 Compared to ECG 10/20/2018 11:00:37 Myocardial infarct finding now present Prolonged QT interval no longer present Electronically Signed On 03-02-2019 12:17:27 PDT by Nettie Hoff CM:EKGRPT:ELECTROCARDIOGRAM REPORT 1008 1217 ELAINE GUSMAN DRAFT REPORT ELAINE NAVA MD
--- NOTE | ~2019-03-02 | EKG ---
[place], [place] ELECTROCARDIOGRAM REPORT NAME: BIMAL FLORES UNIT #: [id number] ROOM: 426 DOCTOR: NASEEM DRAFT REPORT BIRTHDATE: [birth year] [facility] Test Date: 2019-03-02 Test Time: 12:59:32 Pat Name: BIMAL FLORES Department: Room: 426 Gender: M Automatic Winder Operator: Belinda Sousa : 1955 Requested By: ELAINE NAVA Order Number: [id number] Reading MD: Nettie Hoff Measurements Intervals [place] Rate: 111 P: -1 WI: 167 QRS: -15 QRSD: 113 T: 150 QT: 367 QTc: 499 Interpretive Statements Sinus tachycardia Atrial premature complexes in couplets Borderline intraventricular conduction delay Nonspecific T abnormalities, lateral leads Borderline prolonged QT interval Baseline wander in lead(s) V2 Compared to ECG 10/20/2018 11:00:37 Atrial premature complex(es) now present T-wave abnormality now present Electronically Signed On 03-02-2019 12:18:03 PDT by Nettie Hoff CM:EKGRPT:ELECTROCARDIOGRAM REPORT 1259 1218 ELAINE GUSMAN DRAFT REPORT ELAINE NAVA MD
--- NOTE | ~2019-03-02 | PR ---
[place], [place] PROGRESS NOTE [id number] #: [id number] ROOM: 426 DOCTOR: ANTONIO BASILIO MD BIRTHDATE: [birth year] DOS: 03/03/2019 SUBJECTIVE: The patient without chest pains anymore, mildly positive troponin I levels. Dr. Figueroa on consult. OBJECTIVE: VITAL SIGNS: Blood pressure 130/70, heart rate of 101 beats per minute, breathing 20 times per minute, temperature 98.3 degrees Fahrenheit. GENERAL APPEARANCE: The patient is alert and oriented x 3, in no visible distress. HEENT AND NECK: Exam within normal limits. CARDIOVASCULAR SYSTEM: Heart rate is regular in rate and rhythm. S1 and S2 normally audible. LUNGS: Clear to auscultation. ABDOMEN: Soft, nontender. No obvious organomegaly. Bowel sounds are present. EXTREMITIES: Without significant cyanosis or edema. IMPRESSION: 1. Mildly elevated troponin I levels evaluated by veneer press operator, Dr. Figueroa and he has recommended a cardiac stress test on Tuesday to be performed by co. 2. Acute systolic type congestive heart failure with shortness of breath. Echocardiogram ordered. The patient is being diuresed intravenously. 3. Acute exacerbation of chronic obstructive pulmonary disease, increased shortness of breath improved and wheezing, improved with treatment. Dr. Pablo bernal. 4. Benign essential hypertension, treated and controlled. 5. Type 2 diabetes mellitus. Blood sugars are being monitored and treated. 6. Generalized anxiety disorder, treated and controlled. ANTONIO BASILIO MD CM:PNTRANS 1341 2332 ANTONIO BASILIO MD 03/03/19 2329 interface
--- NOTE | ~2019-03-02 | CON ---
[place], [place] REPORT OF CONSULTATION NAME: BIMAL FLOERS [facility] #: [id number] UNIT #: [id number] ROOM: 426 DOCTOR: JESSICA RUIZ MD,ROSY BIRTHDATE: [birth year] DOS: 03/03/2019 PULMONARY CONSULTATION, EVALUATION AND MANAGEMENT REASON FOR CONSULTATION: Consultation requested for assessment of shortness of breath. HISTORY OF PRESENT ILLNESS: A 64-year-old white male patient is known to me from the past. He has presented to the Emergency Room as the patient was complaining of pain, which is described in the lower sternal area without radiation, moderate to severe, worsening with walking. Also noted elevation in troponin on admission. He was complaining of significant shortness of breath associated with pain with inability to ambulate because of shortness of breath. He has been admitted to the hospital. The patient has been noted with abnormal troponin and diagnosis of non-ST segment elevation myocardial infarction has been considered. Further workup and management was noted in progress. The patient stated since he has been hospitalized, he has been reporting reduction in symptoms of shortness of breath. There were no symptoms of orthopnea reported. There were no symptoms of wheezing reported by the patient. Denies any sputum expectoration. Remaining systems were reviewed, they were noted all negative. PAST MEDICAL HISTORY: Known with history of: 1. COPD. 2. Chronic hypoxic respiratory failure, need of oxygen 2 liters nasal cannula. 3. Chronic moderate obesity. 4. The patient with decreased ejection fraction, ischemic cardiomyopathy. 5. Cardiac dysrhythmia, requiring pacemaker insertion. 6. Chronic elevation of troponins. 7. General anxiety disorder. 8. Mixed hyperlipidemia. 9. Type 2 diabetes mellitus. PAST SURGICAL HISTORY: Reported: 1. Lithotripsy. 2. AICD insertion. 3. Cardiac catheterization and coronary stents insertion. SOCIAL HISTORY: The patient is , has 2 children, lives at home. Denies any alcohol or illicit drug use. Tobacco use started in the early teens half a pack of cigarettes per day, discontinued 30 years ago. FAMILY HISTORY: Noted for coronary artery disease, hypertension, and diabetes mellitus. MEDICATIONS: Current medications, which have been administered for the patient noted as intravenous Lasix 60 mg IV daily, Imdur, citalopram, Protonix, Solu-Medrol 30 mg b.i.d., Brilinta, Ranexa high dose, hydroxyzine pamoate at bedtime, Amaryl, Lipitor, DuoNeb, Rocephin, and some other meds. [place], [place] REPORT OF CONSULTATION NAME: BIMAL FLORES UNIT #: [id number] ROOM: 426 DOCTOR: JESSICA RUIZ MD,ROSY BIRTHDATE: [birth year] DRUG ALLERGIES: NOTED ALLERGIES: 1. PENICILLIN. 2. DEMEROL. 3. VANCOMYCIN. PHYSICAL EXAMINATION: GENERAL: This is a 64-year-old male, currently noted to be awake and alert without any distress, resting comfortably, sitting on the chair this morning. Height of 5 feet 10 inches, weight of 236 pounds, BMI 33.8 recorded on admission. VITAL SIGNS: Normal temperature since hospitalization, respiratory rate between 18-24, heart rate 102-91, blood pressure 130/80-130/70. Pulse oxygen saturation noted on room air was 94-98% saturation. HEENT: Head is atraumatic. Eyes nonicterus. NECK: Supple. CARDIOVASCULAR SYSTEM: S1, S2 is audible. LUNGS: The patient was noted without any wheezing at the present time. Scattered crackles of the lung was noted mostly in the lower lungs. ABDOMEN: Soft, nontender. Bowel sounds present. EXTREMITIES: Noted without any acute edema at the present time. MUSCULOSKELETAL: Noted without any acute deformities. CENTRAL NERVOUS SYSTEM: Cranial nerves 2-12 intact. LABORATORY DATA: CBC that was done yesterday on admission noted as normal WBC count, hemoglobin and hematocrit as 11.5 and ____, platelet count normal. The PT/PTT were noted normal yesterday. Lactic acid yesterday 1.7, normal. CMP on admission, BUN 17, creatinine was normal. CO2 was 20. Chest x-ray that was reviewed by PACS image was noted without any acute abnormality except mild increased pulmonary venous congestion markings. CTA of the chest was also done yesterday that excluded any evidence of pulmonary embolism. Interstitial edema was noted with a trace pleural fluid in the left lower lung. Fatty infiltration of the liver was noted. CT scan of the abdomen and pelvis also completed yesterday and was noted as negative study. Troponin was elevated as 0.972, then 0.832 and the lowest troponin and the last one done in the evening at 11:18 p.m. is 0.732. IMPRESSION: 1. The patient will be currently admitted to the hospital with symptoms of shortness of breath, congestive heart failure, likely cause. There were no evidence or findings noted consistent with acute exacerbation of chronic obstructive pulmonary disease. 2. Chronic obesity by history as well. 3. Atypical chest pain. Consider non-ST segment myocardial infarction. Further assessment noted in progress. The patient was requested to have the stress test to be done on Tuesday. PLAN OF MANAGEMENT: I will be discontinuing the Solu-Medrol and the antibiotic as this is not needed. Continue medical management, cardiac problem according to the Cardiology consultation by Dr. Figueroa, who has already assessed the [place], [place] REPORT OF CONSULTATION NAME: BIMAL FLORES UNIT #: [id number] ROOM: 426 DOCTOR: ROSY BAL MD BIRTHDATE: [birth year] patient this morning. Supportive care, plan of management. Monitoring of the respiratory status will be continued. Use of bronchodilators for any respiratory symptoms could be given. Any changes in addition to that if necessary will be made according to progression of the illness. Thanks for allowing me to participate in the care of this patient. ROSY LOPEZ MD CM:CONSTR:REPORT OF CONSULTATION 1543 03/04/19 0338 interface
--- NOTE | ~2019-03-02 | ST ---
[place], [place] EXERCISE STRESS TEST REPORT [facility]ES [facility] [id number] UNIT #: [id number] ROOM: 426 DOCTOR: CHETNA ISIDRO,ANTONIO Mccormack BIRTHDATE: [birth year] DOS: 03/05/2019 LEXISCAN CARDIOLITE STRESS TEST The patient admitted with minimally elevated cardiac enzymes and stress test was ordered by Dr. Figueroa, his staff development coordinator. The patient was injected with Lexiscan 0.4 mg, followed 40 seconds later by Cardiolite intravenously. The patient's heart rate ranged between 108-113 beats per minute, blood pressure ranged between 122 systolic over 64 diastolic to 128 systolic over 60 diastolic. The patient's EKG showed sinus tachycardia without any acute ST-T changes, incomplete right bundle branch block. Rare PVCs. The patient remained asymptomatic during the stress and the recovery phase. No angina-like symptoms. IMPRESSION: Normal EKG part of the Lexiscan Cardiolite stress test. Cardiolite stress test results to be reported by Dr. Siddiqui later today. ANTONIO BASILIO MD CM:STRESS:EXERCISE STRESS TEST REPORT [id number] ANTONIO BASILIO MD
--- NOTE | ~2019-03-02 | EKG ---
[place], [place] ELECTROCARDIOGRAM REPORT NAME: BIMAL FLORES UNIT #: [id number] ROOM: 426 DOCTOR: NASEEM DRAFT REPORT BIRTHDATE: [birth year] [facility] Test Date: 2019-03-02 Test Time: 07:12:04 Pat Name: BIMAL FLORES Department: Room: 426 Gender: M Warehouse Supervisor: : 1955 Requested By: ELAINE NAVA Order Number: [id number] Reading MD: Nettie Hoff Measurements Intervals [place] Rate: 109 P: 18 AK: 139 QRS: -4 QRSD: 112 T: 151 QT: 349 QTc: 471 Interpretive Statements Sinus tachycardia Borderline intraventricular conduction delay Nonspecific T abnormalities, lateral leads Baseline wander in lead(s) V3 Compared to ECG 10/20/2018 11:00:37 T-wave abnormality now present Prolonged QT interval no longer present Electronically Signed On 03-02-2019 12:16:44 PDT by Nettie Hoff CM:EKGRPT:ELECTROCARDIOGRAM REPORT [id number] ELAINE GUSMAN DRAFT REPORT ELAINE NAVA MD
[2019-03-02 07:35] LABS: BASO % 0.4 % (0.0-1.0); EOS # 0.2 10*3/uL (0.0-0.4); EOS % 1.7 % (1.0-4.0); HEMATOCRIT 35.9 % (42.0-52.0); HEMOGLOBIN 11.5 g/dl (14.0-18.0); LYMPH % 22.3 % (27.0-41.0); MEAN CELL VOLUME 88.9 fl (80.0-94.0); MEAN CORPUSCULAR HGB 28.5 pg (27.0-31.0); MEAN PLATELET VOLUME 9.7 fl (9.6-12.3); MONO # 0.5 10*3/uL (0.1-1.0); MONO % 5.9 % (3.0-9.0); NEUT # 6.3 10*3/uL (2.3-7.9); NEUT % 69.4 % (47.0-73.0); PLATELET COUNT AUTOMATED 293 10*3/uL (130-400); RED BLOOD COUNT 4.04 10*6/uL (4.50-5.90); RED CELL DISTRI WIDTH 15.1 % (0-14.5)
[2019-03-02 07:45] LABS: ACT PARTIAL THROMBO TIME 26.4 SECONDS (20.0-32.1); INTERNATIONAL NORM RATIO 0.9 (2.0-3.5)
[2019-03-02 07:51] LABS: ALBUMIN 3.2 gm/dl (3.1-4.5); ALKALINE PHOSPHATASE 114 U/L (45-117); BUN 17 mg/dl (7-24); CHLORIDE 109 mmol/L (98-107); CREATININE 1.27 mg/dL (0.70-1.30); POTASSIUM 3.6 mmol/L (3.5-5.1); SGOT/AST 31 IU/L (3-35); SGPT/ALT 33 U/L (12-78); SODIUM 138 mmol/L (136-145); TOTAL PROTEIN 6.8 gm/dL (6.4-8.2)
[2019-03-02 07:56] LABS: TROPONIN I 0.971 ng/ml (<0.045)
[2019-03-02 08:07] LABS: BILIRUBIN NEGATIVE (NEGATIVE); BLOOD NEGATIVE (NEGATIVE); CLARITY CLEAR (CLEAR); COLOR YELLOW (YELLOW); GLUCOSE NEGATIVE (NEGATIVE); KETONE NEGATIVE (NEGATIVE); LEUKO ESTERASE NEGATIVE (NEGATIVE); NITRITE NEGATIVE (NEGATIVE); UROBILINOGEN 0.2 E.U./dl (0.2-1.0)
--- NOTE | 2019-03-02 08:31 | NUR ---
DR NAVA NOTIFED OF ELEVATED TROP.
[2019-03-02 08:53] LABS: WBC 0-2 wbc/hpf (0-5)
--- NOTE | 2019-03-02 10:30 | NUR ---
A 64, admitted to , under the services of KEVIN Sandoval MD with a diagnosis of chf. Chief complaint is shortness of breath x 1 week. Patient arrived via wheel chair from ER. Monitor applied. Initial assessment completed. Vital signs taken and recorded. KEVIN SANDOVAL MD notified of admission to the unit. Orders received. See assessment for past medical history, medications and allergies. Patient and/or family oriented to unit. [facility] visitation policy reviewed. Clothing/patient valuable form completed. ANI ODONNELL
[2019-03-02] MEDS ORDERED: OMEPRAZOLE40 MG PO (11:05)
--- NOTE | 2019-03-02 13:25 | NUR ---
MEDICATED WITH PO ATIVAN ORDERED PER PT REQUEST FOR C/O ANXIETY.
--- NOTE | 2019-03-02 15:14 | NUR ---
DR LOPEZ NOTIFIED OF CONSULT.
--- NOTE | 2019-03-02 15:38 | NUR ---
DR RICHMOND AWARE OF CONSULT AND WILL SEE PT TODAY.
--- NOTE | 2019-03-02 16:45 | NUR ---
MEDICATED WITH PO ATIVAN ORDERED PER PT REQUEST FOR C/O ANXIETY. PREVIOUS DOSE EFFECTIVE.
--- NOTE | 2019-03-02 18:26 | NUR ---
MEDICATION EFFECTIVE FOR ANXIETY.
--- NOTE | 2019-03-02 20:15 | NUR ---
PT SITTING UP AT SIDE OF BED. TOLERATED ROUTINE MEDS WITH NO PROBLEM. C/O ANXIETY. MEDICATED WITH ATIVAN PO PER ORDER, SEE EMAR. CALL LIGHT IN REACH. SEE SHIFT ASSESSMENT.
--- NOTE | 2019-03-02 22:22 | NUR ---
PT REQUESTING VISTARIL FOR SLEEP PER PT AND ROUTINE ORDER, SEE EMAR. PT STATES ATIVAN WAS EFFECTIVE. CALL LIGHT IN REACH.
[2019-03-03] VITALS: BP 130/88
--- NOTE | 2019-03-03 | NUR ---
CALLED DR. BASILIO AWARE PT REQUESTING AMBIEN FOR INSOMNIA, ORDERS TAKEN AND REVIEWED.
--- NOTE | 2019-03-03 00:40 | NUR ---
PT MEDICATED WITH AMBIEN PO PER PRN ORDER, SEE EMAR. CALL LIGHT IN REACH. SEE SHIFT ASSESSMENT.
--- NOTE | 2019-03-03 03:34 | NUR ---
24 HR chart check completed.
--- NOTE | 2019-03-03 04:00 | NUR ---
SLEEPING IN BED. RESP-EASY AND REGULAR. CALL LIGHT IN REACH.
--- NOTE | 2019-03-03 05:50 | NUR ---
PT MEDICATED WITH ATIVAN PER PT REQUEST FOR ANXIETY, [place]. BSG-180. [facility]
--- NOTE | 2019-03-03 07:52 | NUR ---
PER DR RICHMOND STRESS TEXT LEXISCAN ON TUESDAY DR BASILIO TO PERFORM AND DR RICHMOND WILL READ AND GIVE REPORT.
[2019-03-03 08:00] VITALS: BP 130/70
[2019-03-03 12:00] VITALS: BP 96/72
--- NOTE | 2019-03-03 13:08 | NUR ---
PT REQUESTED ATIVAN FOR C/O ANXIETY. GIVEN AT THIS TIME. WILL CONT TO MONITOR. CALL LIGHT IN REACH.
--- NOTE | 2019-03-03 13:29 | NUR ---
SPOKE TO DR BASILIO AND HE STATED HE WILL PERFORM THE STRESS TEST ON TUESDAY AT NOON
--- NOTE | 2019-03-03 14:08 | NUR ---
ATIVAN EFF PER PT. WILL CONT TO MONITOR. CALL LIGHT IN REACH.
[2019-03-03 16:00] VITALS: BP 128/55
[2019-03-03 20:00] VITALS: BP 139/76
--- NOTE | 2019-03-03 20:30 | NUR ---
PT SITTING UP IN RECLINER CHAIR. RESP-EASY AND REGULAR. MEDICATED WITH ATIVAN PO PER PRN ORDER, SEE EMAR FOR ANXIETY PER PT REQUEST. CALL LIGHT IN REACH.
--- NOTE | 2019-03-03 22:35 | NUR ---
PT REQUESTING AMBIEN FOR INSOMNIA. MEDICATED WITH AMBIEN PO PER PRN ORDER, SEE EMAR. CALL LIGHT IN REACH.
[2019-03-04] VITALS: BP 116/62
--- NOTE | 2019-03-04 00:10 | NUR ---
SLEEPING IN BED. RESP-EASY AND REGULAR. MEDICATION SEEMS TO BE EFFECTIVE. CALL LIGHT IN REACH.
--- NOTE | 2019-03-04 05:38 | NUR ---
TOLERATED ROUTINE MED WITH NO PROBLEM. BSG-169, SEE EMAR. REQUESTING ATIVAN, MEDICATED WITH ATIVAN PO PER PRN ORDER, SEE EMAR. CALL LIGHT IN REACH.
[2019-03-04 08:00] VITALS: BP 124/58
[2019-03-04 11:41] VITALS: BP 131/79
--- NOTE | 2019-03-04 13:28 | NUR ---
PT REQUESTED ATIVAN FOR C/O ANXIETY. WILL CONT TO MONITOR. CALL LIGHT IN REACH.
--- NOTE | 2019-03-04 14:28 | NUR ---
ATIVAN EFF. WILL CONT TO MONITOR. CALL LIGHT IN REACH.
[2019-03-04 15:47] VITALS: BP 132/65
[2019-03-04 20:00] VITALS: BP 155/88
--- NOTE | 2019-03-04 22:31 | NUR ---
PATIENT RECEIVED AMBERLY FOR SLEEP AID.
--- NOTE | 2019-03-04 23:41 | NUR ---
24 HR chart check completed.
[2019-03-05] VITALS: BP 132/80
--- NOTE | 2019-03-05 01:38 | NUR ---
ALFREDIEN EFFECTIVE. PATIENT RESTING COMFORTABLY IN HIS BED AT THIS TIME. RESP EASY. NO S/S OF DISTRESS.
--- NOTE | 2019-03-05 06:01 | NUR ---
PT RECEIVED ATIVAN FOR ANXIETY.
--- NOTE | 2019-03-05 07:45 | NUR ---
PT RESTING IN BED. RESP-EASY AND REGULAR. NO C/O AT THIS TIME. CALL LIGHT IN REACH. SEE SHIFT ASSESSMENT.
[2019-03-05 08:00] VITALS: BP 152/82
--- NOTE | 2019-03-05 09:12 | NUR ---
BIMAL FLORES [id number] Please refer to the physician's history and physical for past medical history, comorbid conditions, and allergies. Diagnosis: ELEVATED TROPONIN 1 LEVEL,SYSTEMIC INFLAMMATORY RE Bobby Score: 21,LOW OR NO RISK WOUND DESCRIPTIONS: Wound Number: 1 Location of the wound: LEFT KNEE Type of wound: TRAUMATIC Thickness: Full Size: 1.2cm X 1cm X 0.1cm Tunneling: NONE Undermining: NONE] Sinus Tract: NONE Presence of Exudate: Serous sanguineous Amount: Light Color: Red, Yellow Odor: None Periwound Skin Appearance: Normal Wound edges: APPROXIMATED Pain (associated with wound): DENIED AT TIME OF ASSESSMENT How does patient state this happened? PATIENT STATES HE FELL PRIOR TO COMING TO THE HOSPITAL A WEEK AGO. Wound Number: 2 Location of the wound: TOP OF HEAD Type of wound: SURGICAL Thickness: Full Size: 0.6cm X 0.8cm X 0.1cm Tunneling: NONE Undermining: NONE Sinus Tract: NONE Presence of Exudate: NONE Amount: None Color: Brown Odor: None Periwound Skin Appearance: Normal Wound edges: APPROXIMATED Pain (associated with wound): DENIED AT TIME OF ASSESSMENT How does patient state this happened? PATIENT STATES THAT DR. ROMANO REMOVED "SKIN" FROM THIS AREA Tuesday03/01/19. Surface the patient is resting on: Isoflex SKIN PREVENTION RECOMMENDATION: 1. Pressure redistribution support surface as appropriate 2. Elevate heels 3. Remove boots/TEDS every shift and reapply 4. Head of bed 30 degrees as tolerated 5. Assess nutrition and hydration 6. Manage moisture 7. Avoid the use of containment devices while in bed 8. Use absorptive products on surfaces limit layers of linens on bed 9. Turn and reposition every 1-2 hours in bed and every 1 hour in chair as tolerated 10. Weight shifts every 15 minutes while up in chair 11. Offloading with pillows or device to keep heels elevated off bed 12. Monitor skin at least every shift 13. Inspect under medical devices twice a day WOUND TREATMENT RECOMMENDATIONS: FULL THICKNESS GUIDELINES TO LEFT KNEE: CLEANSE WITH NSS APPLY SUREPREP AROUND THE WOUND ALLOW TO DRY APPLY THERAHONEY AND COVER WITH OPTIFOAM GENTLE. TOP OF HEAD TO BE LEFT OPEN TO AIR PER PATIENT.
--- NOTE | 2019-03-05 09:48 | NUR ---
Nutritional Support Services Note: Appetite is good for meals, he is eating 100% of 1800cal diet as ordered. Wound noted to knee from fall priot to admission and head. He receives a night snack daily. No other nutrition intervention needed at this time. Will follow. Aliyah Quigley Rdn Ld
--- NOTE | 2019-03-05 10:27 | NUR ---
PT RESTING IN BED WAITING FOR STRESS TEST TO BE DONE. CALL LIGHT IN REACH.
--- NOTE | 2019-03-05 11:00 | NUR ---
Real Estate Office Supervisor in to talk to patient. Patient states lives at home alone with his . There are basement steps in the home. Physician: Dr. Lulú Koroma Pharmacy: [facility] Home health services: none Patient's level of ADLs: independent Patient has working utilities: yes DME: O2 @ 2L [place], nebulizer, O2 supplier [employer] Follow-up physician's appointment after d/c: he prefers to make his own follow up appt after discharge Does patient want to access PORTAL?: no Discharge plan discussed with patient. He lives at home alone with his . He is independent in his ADLs and ambulation. Discussed home health care services and he denies any home needs at this time. When medically stable he will be discharged to home. His will provide transportation on discharge. ROBBIE GRIFFITH
--- NOTE | 2019-03-05 11:15 | NUR ---
PT NPO, NO C/O AT THIS TIME. WAITING FOR STRESS TEST.
[2019-03-05 11:39] VITALS: BP 123/65
--- NOTE | 2019-03-05 12:21 | NUR ---
PT OFF THE FLOOR FOR STRESS TEST.
--- NOTE | 2019-03-05 12:28 | NUR ---
INFORMED SIGNED CONSENT OBTAINED FOR LEXISCAN STRESS TEST WITH DR BASILIO. RESTING EKG INCOMPLETE RBBB, SINUS TACHYCARDIA HR 108 WITH PVC. PT COMPLETED ONE MINUTE OF A LEXISCAN PROTOCOL WITH PT RECEIVING LEXISCAN 0.4MG IV OVER 10 SECONDS. PT HAD PVC'S NO ST CHANGES. PT C/O A FLUSHING FEELING WITH INJECTION. LAST RECOVERY HR OF 113 BP 128/60. PT IN STABLE CONDITION, AWAITING NUCLEAR IMAGES.
--- NOTE | 2019-03-05 13:42 | NUR ---
PT SITTING UP IN BED WITH FAMILY AT HIS SIDE. RESP-EASY AND REGULAR. CALL LIGHT IN REACH.
--- NOTE | 2019-03-05 14:00 | NUR ---
RESTING IN BED. TOLERATED ROUTINE MED WITH NO PROBLEM. MEDICATED WITH ATIVAN PO PER PRN ORDER, SEE EMAR. CALL LIGHT IN REACH. VISITOR AT HIS SIDE.
--- NOTE | 2019-03-05 15:00 | NUR ---
RESTING IN BED. NO C/O AT THIS TIME. STATES MEDICATION WAS EFFECTIVE. CALL LIGHT IN REACH.
[2019-03-05 15:51] VITALS: BP 146/87
--- NOTE | 2019-03-05 16:13 | NUR ---
RESTING IN BED. NO C/O AT THIS TIME. CALL LIGHT IN REACH. SEE SHIFT ASSESSMENT.
--- NOTE | 2019-03-05 16:49 | NUR ---
DR. LOPEZ AWARE OF PT DISCHARGED, NO NEW ORDERS.
--- NOTE | 2019-03-05 16:50 | NUR ---
DR. YI CAGLE, FOLLOW UP IN 7-10 DAYS.
--- NOTE | 2019-03-05 17:04 | NUR ---
ESCORTED VIA WHEELCHAIR FOR DISCHARGE WITH DAUGHTER AT HIS SIDE.
--- NOTE | 2019-03-05 17:04 | NUR ---
Discharge instructions reviewed with patient/family. Patient receptive and verbalizes understanding. Follow-up care arranged. Written instructions given to patient/family. HEPLOCK REMOVED 2X2 APPLIED. MONITOR REMOVED. BERNIE VALDES
== END 2019-03-05 17:04 | disposition home or self-care (01) | DRG 280 ==
LOC: ED 07:07 → EDHOLD 10:02 → 4E 10:02
PROVIDERS: Emergency Medicine; ADMIT Internal Medicine
PROC: 4A02XM4 Measurement of Cardiac Total Activity, External Approach (ICD-10-PCS; principal; 2019-03-05)
PROC: 3E073KZ Introduction of Other Diagnostic Substance into Coronary Artery, Percutaneous Approach (ICD-10-PCS; principal; 2019-03-05)
DX: I21.4 Non-ST elevation (NSTEMI) myocardial infarction (principal); I50.23 Acute on chronic systolic (congestive) heart failure; J44.1 Chronic obstructive pulmonary disease with (acute) exacerbation; R65.10 Systemic inflammatory response syndrome (SIRS) of non-infectious origin without acute organ dysfunction; J98.11 Atelectasis; J96.11 Chronic respiratory failure with hypoxia; I42.9 Cardiomyopathy, unspecified; I11.0 Hypertensive heart disease with heart failure; E78.2 Mixed hyperlipidemia; F41.1 Generalized anxiety disorder; R07.89 Other chest pain; E66.8 Other obesity; T38.0X5A Adverse effect of glucocorticoids and synthetic analogues, initial encounter; E11.65 Type 2 diabetes mellitus with hyperglycemia; Z68.33 Body mass index [BMI] 33.0-33.9, adult; I25.10 Atherosclerotic heart disease of native coronary artery without angina pectoris; M10.072 Idiopathic gout, left ankle and foot; I25.2 Old myocardial infarction; Z95.810 Presence of automatic (implantable) cardiac defibrillator; Z88.1 Allergy status to other antibiotic agents; Z88.0 Allergy status to penicillin; Z88.8 Allergy status to other drugs, medicaments and biological substances; Z83.3 Family history of diabetes mellitus; Z95.1 Presence of aortocoronary bypass graft; Z79.899 Other long term (current) drug therapy; Z79.84 Long term (current) use of oral hypoglycemic drugs; Z95.5 Presence of coronary angioplasty implant and graft; Z87.891 Personal history of nicotine dependence; Y92.89 Other specified places as the place of occurrence of the external cause

== ENCOUNTER 2019-05-01 07:51 | Inpatient (IN) | payer OTHER, MEDICARE ==
[~2019-05-01] VITALS: Ht 177.8 cm; Wt 104.3 kg
[~2019-05-01 07:51] MED LIST changes: +OMEPRAZOLE40 MG PO; -PRAVASTATIN SOD10 MG PO; +PRAVASTATIN SOD40 MG PO
[2019-05-01 07:53] VITALS: BP 124/80
[2019-05-01 08:19] LABS: BASO % 0.4 % (0.0-1.0); EOS # 0.1 10*3/uL (0.0-0.4); HEMATOCRIT 36.9 % (42.0-52.0); HEMOGLOBIN 11.9 g/dl (14.0-18.0); LYMPH # 2.3 10*3/uL (1.3-4.4); LYMPH % 21.5 % (27.0-41.0); MEAN CELL VOLUME 88.7 fl (80.0-94.0); MEAN CORPUSCULAR HGB 28.6 pg (27.0-31.0); MEAN CORPUSCULAR HGB CONC 32.2 g/dl (33.0-37.0); MEAN PLATELET VOLUME 9.6 fl (9.6-12.3); MONO # 0.8 10*3/uL (0.1-1.0); NEUT # 7.6 10*3/uL (2.3-7.9); NEUT % 69.8 % (47.0-73.0); PLATELET COUNT AUTOMATED 292 10*3/uL (130-400); RED BLOOD COUNT 4.16 10*6/uL (4.50-5.90); RED CELL DISTRI WIDTH 15.4 % (0-14.5); WHITE BLOOD COUNT 10.8 10*3/uL (4.8-10.8)
[2019-05-01 08:35] LABS: ALKALINE PHOSPHATASE 104 U/L (45-117); BUN 11 mg/dl (7-24); CHLORIDE 111 mmol/L (98-107); CREATININE 1.23 mg/dL (0.70-1.30); POTASSIUM 3.7 mmol/L (3.5-5.1); SGOT/AST 34 IU/L (3-35); SGPT/ALT 35 U/L (12-78); SODIUM 141 mmol/L (136-145); TOTAL PROTEIN 6.8 gm/dL (6.4-8.2)
[2019-05-01 08:39] LABS: ACT PARTIAL THROMBO TIME 26.2 SECONDS (20.0-32.1); INTERNATIONAL NORM RATIO 0.9 (2.0-3.5)
[2019-05-01] MEDS ORDERED: ALBUTEROL2.5 MG/0.5 INH (09:21)
[2019-05-01] MEDS ORDERED: ZITHROMAX250 MG PO (09:21)
[2019-05-01] MEDS ORDERED: PREDNISONE50 MG PO (09:21)
[2019-05-01 11:15] VITALS: BP 118/56
--- NOTE | 2019-05-01 11:15 | NUR ---
AT TIME OF DISCHARGE FOR BRONCHITIS, PT STATES HE IS NOT READY TO BE DISCHARGED. HE REPORTS A "SWIMMING FEELING IN MY HEAD AFTER I COUGH" AND A LEFT SIDED RIB PAIN WHEN SOMEONE PRESSES ON THIS AREA AND WITH COUGH. HE IS CONCERNED ABOUT GOING HOME. DR SHELDON MADE AWARE. DISCHARGE ON HOLD. UNSURE AT THIS TIME IF PT WILL BE ADMIITED OR DR HOLDEN WITH SPEAK WITH PT HE DID NOT INDICATE TO ME HIS INTENTIONS. PT'S VITALS ARE BASELINE. HE APPEARS IN NO OBJECTIVE DISTRESS.
--- NOTE | 2019-05-01 12:50 | NUR ---
DUISCHARGE CANCELLED. ADMISSION PENDING. NO CHANGE IN CONDITION OR COMPLAINT.
[2019-05-01 13:09] VITALS: BP 97/56
--- NOTE | 2019-05-01 14:14 | NUR ---
SEVERE, HARSH COUGH IS OCCASIONAL. TESSALON PERLS ORDERED, AWAITING DOSE FROM PHARMACY. MEAL TRAY ORDERED. ADMISSION BED STILL PENDING, NO CHANGE IN CONDITION, NO CHANGE IN COMPLAINTS, VITALS STABLE AND WITHIN NORMAL LIMITS.
[2019-05-01 14:15] VITALS: BP 128/55
--- NOTE | 2019-05-01 15:15 | NUR ---
BAKARI LANDRY HAVE NOT YET ARRIVED TO E.D. PT ADMISSION TRANSPORT TO [facility] NOW.
[2019-05-01 15:30] VITALS: BP 146/84
--- NOTE | 2019-05-01 15:30 | NUR ---
A 64, admitted to , under the services of KEVIN Sandoval MD with a diagnosis of COPD EXACERBATION. Chief complaint is SHORTNESS OF BREATH,INCREASE IN COUGH. Patient arrived via bed from ER. Monitor applied. Initial assessment completed. Vital signs taken and recorded. KEVIN SANDOVAL MD notified of admission to the unit. Orders received. See assessment for past medical history, medications and allergies. Patient and/or family oriented to unit. [address] visitation policy reviewed. Clothing/patient valuable form completed. BERNIE VALDES
[2019-05-01] MEDS ORDERED: INCRUSE ELLI62.5 MCG INH (15:44)
--- NOTE | 2019-05-01 16:25 | NUR ---
CALLED DR. BALLESTEROS ORDERS TAKEN AND REVIEWED.
--- NOTE | 2019-05-01 16:48 | NUR ---
PT MEDICATED WITH ROUTINE MED WITH NO PROBLEM. MEDICATED WITH ATIVAN PER ROUTINE ORDER FOR ANXIETY. CALL LIGHT IN REACH. NO C/O AT THIS TIME.
--- NOTE | 2019-05-01 19:50 | NUR ---
PATIENT RESTING IN BED WATCHING TV. DENIES SHORTNESS OF BREATH AT THIS TIME. BED IN LOWEST POSITION, CALL LIGHT IN REACH
[2019-05-01 20:00] VITALS: BP 126/51
--- NOTE | 2019-05-01 20:40 | NUR ---
DR BALLESTEROS AWARE OF PATIENT REQUESTING BAKARI MCCARTNEY. ORDER TAKEN
[2019-05-01] MEDS ORDERED: ZOLPIDEM TART10 MG PO (21:27)
--- NOTE | 2019-05-01 21:35 | NUR ---
DR BALLESTEROS AWARE OF PATIENT REQUESTING HOME AMBIEN. ORDER TAKEN
[2019-05-02] VITALS: BP 141/78
--- NOTE | 2019-05-02 03:37 | NUR ---
24 HR chart check completed.
[2019-05-02 06:14] VITALS: BP 116/63
[2019-05-02 08:00] VITALS: BP 140/62
--- NOTE | 2019-05-02 09:30 | NUR ---
Leather Cartridge Belt Maker in to talk to patient. Patient states lives at home alone with his . There are basement steps in the home. Physician: Dr. Lulú Koroma Pharmacy: [facility] Home health services: none Patient's level of ADLs: independent Patient has working utilities: yes DME: O2 @ 2L [place], nebulizer, O2 supplier [employer] Follow-up physician's appointment after d/c: he prefers to make his own follow up appt after discharge Does patient want to access PORTAL?: no Discharge plan discussed with patient. He lives at home alone with his . He is independent in his ADLs and ambulation. Discussed home health care services and he denies any home needs at this time. When medically stable he will be discharged to home. His , Sandy, will provide transportation on discharge. ROBBIE GRIFFITH
[2019-05-02 12:00] VITALS: BP 128/66
[2019-05-02 16:00] VITALS: BP 109/55
--- NOTE | 2019-05-02 19:53 | NUR ---
24 HR CHART CHECK COMPLETE.
[2019-05-02 20:00] VITALS: BP 121/67
[2019-05-03] VITALS: BP 113/75
[2019-05-03 08:00] VITALS: BP 132/80
[2019-05-03] MEDS ORDERED: DOXYCYCLINE100 M3 PO (08:41)
[2019-05-03] MEDS ORDERED: CARVEDILOL3.125 MG PO (08:41)
[2019-05-03] MEDS ORDERED: PREDNISONE5 MG PO (08:41)
[2019-05-03] MEDS ORDERED: LISINOPRIL2.5 MG PO (08:41)
--- NOTE | 2019-05-03 10:51 | NUR ---
PT DISCHARGED AT THIS TIME. IV REMOVED AND PRESSURE DRESSING APPLIED. HEART MONITOR RETURNED TO FLOOR. VERBALIZED UNDERSTANDING OF DISCHARGE INSTRUCTIONS.
== END 2019-05-03 10:51 | disposition home or self-care (01) | DRG 191 ==
LOC: ED 07:51 → EDHOLD 12:57 → 4E 12:57
PROVIDERS: Emergency Medicine; ADMIT Internal Medicine
DX: J44.0 Chronic obstructive pulmonary disease with (acute) lower respiratory infection (principal); J96.10 Chronic respiratory failure, unspecified whether with hypoxia or hypercapnia; I42.9 Cardiomyopathy, unspecified; J44.1 Chronic obstructive pulmonary disease with (acute) exacerbation; J20.9 Acute bronchitis, unspecified; J45.909 Unspecified asthma, uncomplicated; I25.10 Atherosclerotic heart disease of native coronary artery without angina pectoris; M10.072 Idiopathic gout, left ankle and foot; E78.2 Mixed hyperlipidemia; F51.01 Primary insomnia; I11.0 Hypertensive heart disease with heart failure; I50.9 Heart failure, unspecified; E11.65 Type 2 diabetes mellitus with hyperglycemia; F41.1 Generalized anxiety disorder; Z88.0 Allergy status to penicillin; Z88.8 Allergy status to other drugs, medicaments and biological substances; Z79.899 Other long term (current) drug therapy; I25.2 Old myocardial infarction; Z83.3 Family history of diabetes mellitus; Z82.49 Family history of ischemic heart disease and other diseases of the circulatory system; Z99.81 Dependence on supplemental oxygen

== ENCOUNTER 2019-06-09 05:55 | Inpatient (IN) | payer OTHER, MEDICARE ==
[~2019-06-09] VITALS: Ht 177.8 cm; Wt 108.1 kg
[~2019-06-09 05:55] MED LIST changes: +ALBUTEROL2.5 MG/0.5 INH; +CARVEDILOL3.125 MG PO; +INCRUSE ELLI62.5 MCG INH; +LISINOPRIL2.5 MG PO; +PREDNISONE50 MG PO; +ZITHROMAX250 MG PO; +ZOLPIDEM TART10 MG PO
[2019-06-09 06:04] VITALS: BP 174/102
[2019-06-09 06:22] LABS: BASO # 0.1 10*3/uL (0.0-0.1); BASO % 0.7 % (0.0-1.0); EOS # 0.2 10*3/uL (0.0-0.4); HEMATOCRIT 34.9 % (42.0-52.0); HEMOGLOBIN 11.1 g/dl (14.0-18.0); LYMPH # 1.8 10*3/uL (1.3-4.4); LYMPH % 21.8 % (27.0-41.0); MEAN CELL VOLUME 91.8 fl (80.0-94.0); MEAN CORPUSCULAR HGB 29.2 pg (27.0-31.0); MEAN CORPUSCULAR HGB CONC 31.8 g/dl (33.0-37.0); MEAN PLATELET VOLUME 9.8 fl (9.6-12.3); MONO # 0.7 10*3/uL (0.1-1.0); MONO % 8.8 % (3.0-9.0); NEUT # 5.3 10*3/uL (2.3-7.9); NEUT % 66.2 % (47.0-73.0); PLATELET COUNT AUTOMATED 269 10*3/uL (130-400); RED CELL DISTRI WIDTH 15.5 % (0-14.5)
[2019-06-09 06:42] LABS: INTERNATIONAL NORM RATIO 0.9 (2.0-3.5)
[2019-06-09 06:43] LABS: CREATININE 1.63 mg/dL (0.70-1.30); POTASSIUM 3.6 mmol/L (3.5-5.1); TOTAL PROTEIN 6.1 gm/dL (6.4-8.2)
[2019-06-09 07:16] LABS: TROPONIN I 0.611 ng/ml (<0.045)
--- NOTE | 2019-06-09 07:16 | NUR ---
TROPONIN 0.611 DR CHACON NOTIFIED
[2019-06-09 08:40] VITALS: BP 134/70
[2019-06-09 09:00] VITALS: BP 128/81
--- NOTE | 2019-06-09 09:40 | NUR ---
CCADMA 64, admitted to , under the services of Dr. CHETNA ISIDRO,ANTONIO Mccormack with a diagnosis of COPD. Chief complaint is SOB. Patient arrived via bed from ER. Monitor applied. Initial assessment completed. Vital signs taken and recorded. DR. CHETNA ISIDRO,ANTONIO Mccormack notified of admission to the unit. Orders received. See assessment for past medical history, medications and allergies. Patient and/or family oriented to unit. [facility] visitation policy reviewed. Clothing/patient valuable form completed. MAYLIN ELLIS
--- NOTE | 2019-06-09 09:47 | NUR ---
NOTIFIED DR. BASILIO OF CRITICAL LAB.
[2019-06-09 12:00] VITALS: BP 109/59
[2019-06-09] MEDS ORDERED: ATIVAN1 MG PO (12:45)
--- NOTE | 2019-06-09 14:14 | NUR ---
ATIVAN GIVEN FOR C/O ANXIETY. WILL MONITOR.
--- NOTE | 2019-06-09 15:20 | NUR ---
ATIVAN EFFECTIVE PER PT.
--- NOTE | 2019-06-09 18:52 | NUR ---
DR. JORGE NOTIFIED OF CONSULT.
[2019-06-09 20:00] VITALS: BP 135/64
--- NOTE | 2019-06-09 22:43 | NUR ---
PATIENT MEDICATED WITH AMBIEN AND ATIVAN PER PRN ORDER FOR C/O ANXIETY AND INABILITY TO SLEEP. SEE EMAR. REINFORCED USE OF CALL LIGHT.
[2019-06-10] VITALS: BP 126/61
--- NOTE | 2019-06-10 01:00 | NUR ---
PATIENT RESTING QUIETLY. MEDICATION EFFECTIVE.
--- NOTE | 2019-06-10 01:15 | NUR ---
24 HR chart check completed.
[2019-06-10 06:39] LABS: BUN 22 mg/dl (7-24); CHLORIDE 107 mmol/L (98-107); POTASSIUM 3.3 mmol/L (3.5-5.1); SODIUM 138 mmol/L (136-145)
[2019-06-10 08:00] VITALS: BP 120/64
--- NOTE | 2019-06-10 08:00 | NUR ---
PATIENT C/O OF LIS ANXIOUS ATIVAN GIVEBN ORDERED PER HIS REQUEST.
--- NOTE | 2019-06-10 09:00 | NUR ---
PATIENT REPORTS FEELING LESS ANXIOUS, SINCE RECEIVING HIS LORAZEPAM.
[2019-06-10 12:00] VITALS: BP 121/73
--- NOTE | 2019-06-10 13:41 | NUR ---
CALL PLACED TO DR. BASILIO TO REPORT 4 BEAT RUN OF [facility], ADVISED TO CALL DR. JORGE. CALL PLACED TO DR. JORGE, HE ORDERED STAT MAG AND POT LEVEL, ORDER REPEATED BACK AND INPUTTED INTO COMPUTER. HE VERSED HE WILL BE IN, IN A COUPLE HOURS.
[2019-06-10 14:11] LABS: POTASSIUM 3.6 mmol/L (3.5-5.1)
[2019-06-10 16:00] VITALS: BP 116/64; BP 118/72
--- NOTE | 2019-06-10 17:03 | NUR ---
PATIENT HAVING INCREAE IN ANXIETY REQUESTED AND GIVEN ATIVAN ORDERED PRN.
--- NOTE | 2019-06-10 18:03 | NUR ---
PATIENT REPORTS GOOD RELIEF FROM LORAZEPAM GIVEN X 1 HOUR AGO.
[2019-06-10 20:00] VITALS: BP 130/78
--- NOTE | 2019-06-10 21:00 | NUR ---
SPOKE WITH DR BASILIO REGARDING PTS STRESS TEST SCHEDULED FOR TOMORROW 06/11. STATES THAT IT CAN BE CANCELLED BECAUSE THE PT HAD ONE RECENTLY IN .
--- NOTE | 2019-06-10 21:35 | NUR ---
ATIVAN AND AMBIEN ADMINISTERED AT THIS TIME PER PT REQUEST. WILL MONITOR.
--- NOTE | 2019-06-10 23:07 | NUR ---
24 HOUR CHART CHECK COMPLETE.
[2019-06-11] VITALS: BP 128/82
--- NOTE | 2019-06-11 04:16 | NUR ---
PT C/O SOB AT THIS TIME. AUDIBLE WHEEZES PRESENT. OXYGEN PLACED BACK ON PT, AND HOB ELEVATED. SPOKE WITH JACKSON FROM RESPIRATORY. HE WILL BE UP TO ASSESS THE PT.
--- NOTE | 2019-06-11 04:21 | NUR ---
JACKSON FROM RESPIRATORY IN TO GIVE PT BREATHING TREATMENT AT THIS TIME.
--- NOTE | 2019-06-11 04:51 | NUR ---
ATIVAN ADMINISTERED FOR NOTICABLE ANXIETY. PT ENCOURAGED TO TAKE BREATHES IN THROUGH HIS NOSE AND OUT THROUGH HIS MOUTH. POST BREATHING TREATMENT PULSE OX IS 98% ON 2L NC & A HEART RATE OF 100 PER CM. WILL CONTINUE TO MONITOR. PT STILL STATES HE IS SHORT OF BREATH AND WAS ENCOURAGED TO NOTIFY ME IF SYMPTOMS WORSEN. PT DENYING CHEST PAIN/PRESSURE.
--- NOTE | 2019-06-11 06:30 | NUR ---
PT ASLEEP AT THIS TIME. NO SIGNS OF DISCOMFORT OR DISTRESS NOTED.
[2019-06-11 06:48] LABS: BUN 24 mg/dl (7-24); CHLORIDE 111 mmol/L (98-107); CREATININE 1.17 mg/dL (0.70-1.30); POTASSIUM 3.5 mmol/L (3.5-5.1); SODIUM 143 mmol/L (136-145)
--- NOTE | 2019-06-11 07:10 | NUR ---
ARRIVED ON SHIFT, INTRODUCED TO PATIENT, NO NEEDS VOICED AT THIS TIME. WHITE BOARD UPDATED. REPORT RECEIVED.
[2019-06-11 08:00] VITALS: BP 122/70
--- NOTE | 2019-06-11 08:37 | NUR ---
Shift chart check completed.
--- NOTE | 2019-06-11 09:00 | NUR ---
CALL PLACED TO DR. BASILIO REGARDING FOLLOW UP BS OF 47 THIS AM, INCREASED DYSPNEA, WITH INCREASED WHEEZES. ADVISED OF REPEAT BS OF 73. ORDER RECEIVED FOR STAT CHEST XRAY, PULSE OX AND AZIZ CONSULT.
--- NOTE | 2019-06-11 09:05 | NUR ---
CALL PLACED TO DR. LOPEZ FOR CONSULT. ORDER RECIEVED FOR ABG'S. UPDATE TO PT/SPOUSE ON POC.
[2019-06-11 09:35] LABS: ABG BASE EXCESS 0.4 mmol/L (-2.0-2.0); ARTERIAL BLOOD GAS PH 7.411 (7.35-7.45)
[2019-06-11 12:00] VITALS: BP 111/69
--- NOTE | 2019-06-11 12:09 | NUR ---
PATIENT HAVING INCREASED ANXIETY, MEDICATED WITH LORAZEPAM ORDERED PRN.
--- NOTE | 2019-06-11 12:28 | NUR ---
PER DR. BASILIO, ADVISED NOT TO GIVE, 1400 DOSE OF SOLU-MEDROL PATIENT RECEIVED FIRST DOSE AT 1200
[2019-06-11 16:00] VITALS: BP 113/73
--- NOTE | 2019-06-11 19:41 | NUR ---
PT IS STATING THAT HE FEEL ANXIIOUS AND IS REQUESTING ATIVAN. PO LORAZEPAM IS GIVEN AT THIS TIME. WILL CONTINUE TO MONITOR THE PATIENT. [facility]
[2019-06-11 20:00] VITALS: BP 133/81
--- NOTE | 2019-06-11 22:44 | NUR ---
PT IS REQUESTING AMBIEN TO HELP HIM SLEEP. PO AMBIEN IS GIVEN AT THIS TIME. WILL CONTINUE TO MONITOR PATIENT, CALL LIGHT WITHIN REACH
[2019-06-12] VITALS: BP 127/83
--- NOTE | 2019-06-12 02:01 | NUR ---
24 HR chart check completed.
--- NOTE | 2019-06-12 04:00 | NUR ---
Patient sleeping. Respirations relaxed and easy. Siderails up . [place] on. JASMYNE WATTS
--- NOTE | 2019-06-12 07:00 | NUR ---
ARRIVED ON SHIFT, INTRODUCED TO PATIENT, NO NEEDS VOICED, WHITE BOARD UPDATED. REPORT RECEIVED FROM OFFGOING NURSE.
[2019-06-12 07:13] LABS: BUN 24 mg/dl (7-24); CHLORIDE 106 mmol/L (98-107); SODIUM 139 mmol/L (136-145)
[2019-06-12 07:14] LABS: CREATININE 1.19 mg/dL (0.70-1.30)
--- NOTE | 2019-06-12 07:17 | NUR ---
Shift chart check completed.
[2019-06-12 08:00] VITALS: BP 122/88
--- NOTE | 2019-06-12 08:37 | NUR ---
PATIENT C/O ANXIETY, REQUESTED LORAZEPAM ORDERED PRN FOR ANXIETY
--- NOTE | 2019-06-12 09:37 | NUR ---
PATIENT REPORTS GOOD RELIEF FROM LORAZEPAM X 1 HOUR AGO.
[2019-06-12 12:00] VITALS: BP 105/73
--- NOTE | 2019-06-12 12:12 | NUR ---
Barrel Raiser Helper in to talk to patient. Patient states lives at home with . There are few steps in the home. Physician: patricia [facility]acy: [facility] Home health services: none Patient's level of ADLs: INDEPENDENT Patient has working utilities: all working DME: home oxygen wears at hs from [facility] Follow-up physician's appointment after d/c: patient chooses to make own follow up appointment Does patient want to access PORTAL?: no Discharge plan discussed with patient, he lives at home with , he is independent in adls and ambulation, has home oxygen he wears at hs, he states he will return home when medically stable, case management will follow . BRADLY LAZAR
--- NOTE | 2019-06-12 14:49 | NUR ---
PATIENT HAVING INCREASED ANXIETY, MEDICATED WITH LORAZEPAM ORDERED PRN.
--- NOTE | 2019-06-12 15:39 | NUR ---
PATIENT REPORTS GOOD RELIEF FROM LORAZEPAM GIVEN X 1 HOUR AGO.
[2019-06-12 16:00] VITALS: BP 121/67
--- NOTE | 2019-06-12 19:48 | NUR ---
24 HOUR CHART CHECK COMPLETED
[2019-06-12 20:00] VITALS: BP 118/69
--- NOTE | 2019-06-12 22:30 | NUR ---
RISSA GAMING GIVEN AT PATIENT REQUEST FOR SLEEP AT THIS TIME.
[2019-06-13] VITALS: BP 118/63
--- NOTE | 2019-06-13 05:50 | NUR ---
ATIVAN PO GIVEN AT THIS TIME AT PATIENT REQUEST FOR ANXIETY, A&O X3
[2019-06-13 09:16] VITALS: BP 116/68
[2019-06-13 12:00] VITALS: BP 114/65
[2019-06-13] MEDS ORDERED: ZITHROMAX500 MG PO (15:10)
[2019-06-13] MEDS ORDERED: MEDROL DOSEPAK4 MG PO (15:10)
--- NOTE | 2019-06-13 15:52 | NUR ---
Discharge instructions reviewed with patient/family. Patient receptive and verbalizes understanding. Follow-up care arranged. Written instructions given to patient/family. MONITOR WAS REMOVED. IV WAS REMOVED. PT HAD NO QUESTIONS AT THIS TIME. MONTEZ GASCA
== END 2019-06-13 15:52 | disposition home or self-care (01) | DRG 189 ==
LOC: ED 05:55 → EDHOLD 07:31 → 4E 07:31
PROVIDERS: Emergency Medicine; Internal Medicine Cardiovascular Disease; Internal Medicine Critical Care Medicine; ADMIT Internal Medicine
DX: J96.21 Acute and chronic respiratory failure with hypoxia (principal); J44.1 Chronic obstructive pulmonary disease with (acute) exacerbation; I50.22 Chronic systolic (congestive) heart failure; J44.0 Chronic obstructive pulmonary disease with (acute) lower respiratory infection; I47.2 Ventricular tachycardia; E87.6 Hypokalemia; E11.65 Type 2 diabetes mellitus with hyperglycemia; T38.0X5A Adverse effect of glucocorticoids and synthetic analogues, initial encounter; J20.9 Acute bronchitis, unspecified; I25.10 Atherosclerotic heart disease of native coronary artery without angina pectoris; F41.1 Generalized anxiety disorder; N18.9 Chronic kidney disease, unspecified; F51.01 Primary insomnia; E78.2 Mixed hyperlipidemia; I25.5 Ischemic cardiomyopathy; E11.22 Type 2 diabetes mellitus with diabetic chronic kidney disease; Z88.1 Allergy status to other antibiotic agents; Y92.89 Other specified places as the place of occurrence of the external cause; Z88.0 Allergy status to penicillin; Z88.8 Allergy status to other drugs, medicaments and biological substances; I25.2 Old myocardial infarction; Z95.810 Presence of automatic (implantable) cardiac defibrillator; Z87.891 Personal history of nicotine dependence; Z82.49 Family history of ischemic heart disease and other diseases of the circulatory system; Z95.5 Presence of coronary angioplasty implant and graft

== ENCOUNTER → 2019-08-14 | Outpatient (CLI) | payer MEDICARE ==
[~2019-08-14] MED LIST changes: +MEDROL DOSEPAK4 MG PO; +ZITHROMAX500 MG PO
[2019-08-14 09:32] LABS: BUN 17 mg/dl (7-24); CHLORIDE 108 mmol/L (98-107); CREATININE 1.27 mg/dL (0.70-1.30); POTASSIUM 3.3 mmol/L (3.5-5.1); SODIUM 141 mmol/L (136-145)
== END | disposition home or self-care (01) ==
LOC: LAB 08:47
PROVIDERS: Internal Medicine Cardiovascular Disease
DX: I25.5 Ischemic cardiomyopathy (principal)

== ENCOUNTER 2019-08-20 13:53 | Emergency (ER) | payer MEDICARE ==
[~2019-08-20] VITALS: Ht 182.8 cm; Wt 131.5 kg
[2019-08-20 14:32] LABS: BASO % 0.3 % (0.0-1.0); EOS # 0.1 10*3/uL (0.0-0.4); EOS % 0.7 % (1.0-4.0); HEMATOCRIT 39.4 % (42.0-52.0); HEMOGLOBIN 12.5 g/dl (14.0-18.0); LYMPH # 2.6 10*3/uL (1.3-4.4); LYMPH % 25.9 % (27.0-41.0); MEAN CELL VOLUME 89.3 fl (80.0-94.0); MEAN CORPUSCULAR HGB 28.3 pg (27.0-31.0); MEAN CORPUSCULAR HGB CONC 31.7 g/dl (33.0-37.0); MONO # 0.7 10*3/uL (0.1-1.0); MONO % 7.3 % (3.0-9.0); NEUT # 6.6 10*3/uL (2.3-7.9); NEUT % 65.2 % (47.0-73.0); PLATELET COUNT AUTOMATED 342 10*3/uL (130-400); RED BLOOD COUNT 4.41 10*6/uL (4.50-5.90); RED CELL DISTRI WIDTH 15.9 % (0-14.5); WHITE BLOOD COUNT 10.1 10*3/uL (4.8-10.8)
[2019-08-20 14:40] VITALS: BP 102/68
[2019-08-20 14:41] LABS: ACT PARTIAL THROMBO TIME 22.6 SECONDS (20.0-32.1); INTERNATIONAL NORM RATIO 0.9 (2.0-3.5)
[2019-08-20 14:42] LABS: ALBUMIN 3.3 gm/dl (3.1-4.5); CREATININE 2.03 mg/dL (0.70-1.30); POTASSIUM 3.8 mmol/L (3.5-5.1); TOTAL PROTEIN 6.9 gm/dL (6.4-8.2)
[2019-08-20 14:45] LABS: TROPONIN I 0.303 ng/ml (<0.045)
== END 2019-08-20 17:08 | disposition left against medical advice (07) ==
LOC: ED 13:53 → EDHOLD 15:43
PROVIDERS: Emergency Medicine
DX: H53.8 Other visual disturbances (principal); G45.9 Transient cerebral ischemic attack, unspecified; R79.89 Other specified abnormal findings of blood chemistry; I25.10 Atherosclerotic heart disease of native coronary artery without angina pectoris; J44.9 Chronic obstructive pulmonary disease, unspecified; I11.0 Hypertensive heart disease with heart failure; I50.9 Heart failure, unspecified; F41.9 Anxiety disorder, unspecified; I25.2 Old myocardial infarction; M10.9 Gout, unspecified; Z95.0 Presence of cardiac pacemaker; Z88.0 Allergy status to penicillin; Z88.8 Allergy status to other drugs, medicaments and biological substances; Z79.899 Other long term (current) drug therapy

== ENCOUNTER → 2019-08-20 | Outpatient (CLI) | payer MEDICARE ==
[2019-08-20 09:08] LABS: CREATININE 1.49 mg/dL (0.70-1.30); POTASSIUM 3.5 mmol/L (3.5-5.1)
== END | disposition home or self-care (01) ==
LOC: LAB 08:18
PROVIDERS: Internal Medicine
DX: I50.9 Heart failure, unspecified (principal)

== ENCOUNTER 2019-09-08 14:57 | Emergency (ER) | payer MEDICARE ==
[~2019-09-08] VITALS: Ht 177.8 cm; Wt 108.9 kg
[2019-09-08 15:28] LABS: BASO % 0.5 % (0.0-1.0); EOS # 0.1 10*3/uL (0.0-0.4); HEMATOCRIT 35.2 % (42.0-52.0); HEMOGLOBIN 11.4 g/dl (14.0-18.0); LYMPH # 2.4 10*3/uL (1.3-4.4); LYMPH % 26.8 % (27.0-41.0); MEAN CELL VOLUME 92.1 fl (80.0-94.0); MEAN CORPUSCULAR HGB 29.8 pg (27.0-31.0); MEAN CORPUSCULAR HGB CONC 32.4 g/dl (33.0-37.0); MEAN PLATELET VOLUME 9.5 fl (9.6-12.3); MONO # 0.7 10*3/uL (0.1-1.0); MONO % 7.7 % (3.0-9.0); NEUT # 5.6 10*3/uL (2.3-7.9); NEUT % 63.3 % (47.0-73.0); PLATELET COUNT AUTOMATED 250 10*3/uL (130-400); RED BLOOD COUNT 3.82 10*6/uL (4.50-5.90); RED CELL DISTRI WIDTH 15.5 % (0-14.5); WHITE BLOOD COUNT 8.8 10*3/uL (4.8-10.8)
[2019-09-08 15:41] LABS: ACT PARTIAL THROMBO TIME 23.5 SECONDS (20.0-32.1); INTERNATIONAL NORM RATIO 0.9 (2.0-3.5)
[2019-09-08 15:46] LABS: ALBUMIN 3.1 gm/dl (3.1-4.5); CREATININE 1.71 mg/dL (0.70-1.30); POTASSIUM 3.5 mmol/L (3.5-5.1); TOTAL PROTEIN 6.6 gm/dL (6.4-8.2)
[2019-09-08 15:48] LABS: TROPONIN I 0.23 ng/ml (<0.045)
[2019-09-08 15:51] LABS: BILIRUBIN NEGATIVE (NEGATIVE); BLOOD NEGATIVE (NEGATIVE); CLARITY CLEAR (CLEAR); COLOR YELLOW (YELLOW); GLUCOSE NEGATIVE (NEGATIVE); KETONE NEGATIVE (NEGATIVE); LEUKO ESTERASE NEGATIVE (NEGATIVE); NITRITE NEGATIVE (NEGATIVE); SPECIFIC GRAVITY 1.005 (1.005-1.030); UROBILINOGEN 0.2 E.U./dl (0.2-1.0)
[2019-09-08 15:55] LABS: BACTERIA 2+; EPITHELIAL CELLS 0-2; RBC 0-2 rbc/hpf (0-2); WBC 0-2 wbc/hpf (0-5)
[2019-09-08 15:56] LABS: HYALINE CAST TNTC
[2019-09-08 17:30] VITALS: BP 110/68
== END 2019-09-08 17:34 | disposition home or self-care (01) ==
LOC: ED 14:57
PROVIDERS: Emergency Medicine
DX: R55 Syncope and collapse (principal); R42 Dizziness and giddiness; M25.511 Pain in right shoulder; J44.9 Chronic obstructive pulmonary disease, unspecified; I10 Essential (primary) hypertension; F41.9 Anxiety disorder, unspecified; F17.200 Nicotine dependence, unspecified, uncomplicated; Z79.899 Other long term (current) drug therapy

== ENCOUNTER 2019-11-01 13:35 | Inpatient (IN) | payer MEDICARE ==
[~2019-11-01] VITALS: Ht 177.8 cm; Wt 111.6 kg
[2019-11-01 13:35] VITALS: BP 89/58
[2019-11-01 14:10] LABS: BASO % 0.5 % (0.0-1.0); EOS # 0.1 10*3/uL (0.0-0.4); EOS % 1.4 % (1.0-4.0); HEMATOCRIT 36.9 % (42.0-52.0); LYMPH # 2.5 10*3/uL (1.3-4.4); LYMPH % 29.6 % (27.0-41.0); MEAN CORPUSCULAR HGB 30.2 pg (27.0-31.0); MEAN CORPUSCULAR HGB CONC 32.8 g/dl (33.0-37.0); MEAN PLATELET VOLUME 9.7 fl (9.6-12.3); MONO # 0.6 10*3/uL (0.1-1.0); MONO % 7.3 % (3.0-9.0); NEUT % 60.7 % (47.0-73.0); PLATELET COUNT AUTOMATED 253 10*3/uL (130-400); RED BLOOD COUNT 4.01 10*6/uL (4.50-5.90); RED CELL DISTRI WIDTH 14.6 % (0-14.5); WHITE BLOOD COUNT 8.3 10*3/uL (4.8-10.8)
[2019-11-01 14:24] LABS: ACT PARTIAL THROMBO TIME 25.2 SECONDS (20.0-32.1)
[2019-11-01 14:28] LABS: ALBUMIN 3.2 gm/dl (3.1-4.5); CREATININE 1.8 mg/dL (0.70-1.30); POTASSIUM 4.3 mmol/L (3.5-5.1); TOTAL PROTEIN 6.7 gm/dL (6.4-8.2)
[2019-11-01 14:32] LABS: TROPONIN I 0.102 ng/ml (<0.045)
[2019-11-01 15:16] VITALS: BP 93/60
[2019-11-01 15:30] LABS: BACTERIA TRACE; BILIRUBIN NEGATIVE (NEGATIVE); BLOOD NEGATIVE (NEGATIVE); CLARITY CLEAR (CLEAR); COLOR YELLOW (YELLOW); GLUCOSE NEGATIVE (NEGATIVE); KETONE NEGATIVE (NEGATIVE); LEUKO ESTERASE NEGATIVE (NEGATIVE); NITRITE NEGATIVE (NEGATIVE); UROBILINOGEN 0.2 E.U./dl (0.2-1.0)
[2019-11-01 15:43] VITALS: BP 91/61
[2019-11-01 16:00] VITALS: BP 108/66
[2019-11-01] MEDS ORDERED: AMBIEN10 M1 PO (17:50)
[2019-11-01 20:00] VITALS: BP 100/60
[2019-11-01] MEDS ORDERED: HYDROXYZINE HCL25 MG PO (22:40)
[2019-11-02] VITALS: BP 120/65
[2019-11-02] MEDS ORDERED: ENTRESTO 97 MG1 EACH PO (02:41)
[2019-11-02] MEDS ORDERED: POTASSIUM CHLO20 ME3 PO (02:43)
[2019-11-02 08:00] VITALS: BP 100/69; BP 140/84
[2019-11-02 12:00] VITALS: BP 112/74
[2019-11-02 16:00] VITALS: BP 121/66
[2019-11-02 20:00] VITALS: BP 109/85
[2019-11-03 00:10] VITALS: BP 103/47
== END 2019-11-03 08:50 | disposition other institution (70) | DRG 312 ==
LOC: ED 13:35 → EDHOLD 15:19 → 5E 15:19
PROVIDERS: Nurse Practitioner Family; ADMIT Internal Medicine
PROC: 4A02XM4 Measurement of Cardiac Total Activity, External Approach (ICD-10-PCS; principal; 2019-11-02)
PROC: 3E073KZ Introduction of Other Diagnostic Substance into Coronary Artery, Percutaneous Approach (ICD-10-PCS; principal; 2019-11-02)
DX: I95.1 Orthostatic hypotension (principal); I42.0 Dilated cardiomyopathy; I50.22 Chronic systolic (congestive) heart failure; F33.0 Major depressive disorder, recurrent, mild; I25.10 Atherosclerotic heart disease of native coronary artery without angina pectoris; J44.9 Chronic obstructive pulmonary disease, unspecified; F41.1 Generalized anxiety disorder; R79.89 Other specified abnormal findings of blood chemistry; I11.0 Hypertensive heart disease with heart failure; E11.9 Type 2 diabetes mellitus without complications; F51.01 Primary insomnia; E78.2 Mixed hyperlipidemia; Z95.810 Presence of automatic (implantable) cardiac defibrillator; Z95.1 Presence of aortocoronary bypass graft; Z88.0 Allergy status to penicillin; Z88.1 Allergy status to other antibiotic agents; Z88.8 Allergy status to other drugs, medicaments and biological substances; Z79.84 Long term (current) use of oral hypoglycemic drugs; Z79.899 Other long term (current) drug therapy

== ENCOUNTER 2020-01-29 07:23 | Inpatient (IN) | payer MEDICARE, OTHER ==
[~2020-01-29] VITALS: Ht 173.9 cm; Wt 113.0 kg
[~2020-01-29 07:23] MED LIST changes: +ENTRESTO 97 MG1 EACH PO; +HYDROXYZINE HCL25 MG PO; +POTASSIUM CHLO20 ME3 PO
[2020-01-29 07:37] VITALS: BP 142/83
[2020-01-29 08:24] LABS: BASO % 0.3 % (0.0-1.0); EOS # 0.2 10*3/uL (0.0-0.4); EOS % 1.7 % (1.0-4.0); HEMATOCRIT 39.5 % (42.0-52.0); LYMPH % 17.9 % (27.0-41.0); MEAN CELL VOLUME 90.2 fl (80.0-94.0); MEAN CORPUSCULAR HGB 28.3 pg (27.0-31.0); MEAN CORPUSCULAR HGB CONC 31.4 g/dl (33.0-37.0); MEAN PLATELET VOLUME 9.6 fl (9.6-12.3); MONO # 0.9 10*3/uL (0.1-1.0); MONO % 7.6 % (3.0-9.0); NEUT # 8.1 10*3/uL (2.3-7.9); PLATELET COUNT AUTOMATED 241 10*3/uL (130-400); RED BLOOD COUNT 4.38 10*6/uL (4.50-5.90); WHITE BLOOD COUNT 11.2 10*3/uL (4.8-10.8)
[2020-01-29 08:40] LABS: ACT PARTIAL THROMBO TIME 24.5 SECONDS (20.0-32.1); ALBUMIN 2.8 gm/dl (3.1-4.5); ALKALINE PHOSPHATASE 93 U/L (45-117); BUN 25 mg/dl (7-24); CHLORIDE 107 mmol/L (98-107); CREATININE 1.07 mg/dL (0.70-1.30); INTERNATIONAL NORM RATIO 0.9 (2.0-3.5); LIPASE 409 U/L (73-393); POTASSIUM 4.2 mmol/L (3.5-5.1); SGOT/AST 22 IU/L (3-35); SGPT/ALT 28 U/L (12-78); SODIUM 138 mmol/L (136-145); TOTAL PROTEIN 6.6 gm/dL (6.4-8.2)
[2020-01-29 08:41] VITALS: BP 144/78
[2020-01-29 08:42] LABS: TROPONIN I 0.162 ng/ml (<0.045)
--- NOTE | 2020-01-29 09:05 | NUR ---
PT REQUESTS PAIN MEDICATION. DR RUSSO MADE AWARE.
--- NOTE | 2020-01-29 10:22 | NUR ---
MEDICATED FOR PAIN PER ORDER. AWAITING BED ASSIGMENT FOR ADMISSION.
--- NOTE | 2020-01-29 10:38 | NUR ---
CLEOCIN DOSE HAS NOT YET ARRIVED FROM PHARMACY AND IS NOT PRESENT IN DEPARTMENT PYSXIS.
[2020-01-29 10:50] VITALS: BP 139/80
--- NOTE | 2020-01-29 10:50 | NUR ---
Time: 1050 A 64 year old MALE admitted to 5E under services of DR. CHETNA ISIDRO,ANTONIO Bernard Pt. arrived via stretcher from ER. Chief complaint: DENTAL ABSCESS. LISA MARCIAL
--- NOTE | 2020-01-29 11:14 | NUR ---
DR REILLY NOTIFIED OF CONSULT FROM ER PER ER STAFF.
--- NOTE | 2020-01-29 11:20 | NUR ---
DR REILLY IN TO SEE PT.
--- NOTE | 2020-01-29 11:48 | NUR ---
PT REQUESTED AND WAS MEDICATED WITH TORADL IV FOR C/O LEFT TOOTH/JAW PAIN. CALL LIGHT IN REACH. WILL MONITOR
--- NOTE | 2020-01-29 12:35 | NUR ---
MEDICATION EFFECTIVE PER PT. CALL LIGHT IN REACH. WILL MONITOR
[2020-01-29 16:00] VITALS: BP 128/71
--- NOTE | 2020-01-29 18:07 | NUR ---
PT REQUESTED AND WAS MEDICATED WITH TORADOL FOR C/O LEFT JAW/TOOTH PAIN. CALL LIGHT IN REACH. WILL MONITOR
--- NOTE | 2020-01-29 18:11 | NUR ---
PT REQUESTED AND WAS MEDICATED WITH ATIVAN FOR C/O ANXIETY. CALL LIGHT IN REACH. WILL MONITOR
--- NOTE | 2020-01-29 19:00 | NUR ---
TORADOL AND ATIVAN EFFECTIVE PER PT. CALL LIGHT IN REACH.
[2020-01-29 20:00] VITALS: BP 113/52
--- NOTE | 2020-01-29 20:00 | NUR ---
RESTING IN BED WITH NO ACUTE DISTRESS NOTED. RESPIRATIONS EASY. LUNGS DIMINISHED, CLEAR. PULSE OX 95% RA. LEFT SIDED FACIAL/JAW SWELLING NOTED. CALL LIGHT WITHIN REACH. NO VOICED COMPLAINTS
--- NOTE | 2020-01-29 20:02 | NUR ---
24 HR chart check completed.
--- NOTE | 2020-01-29 23:48 | NUR ---
REQUESTED AND RECEIVED TORADOL PER PRN ORDER FOR COMPLAINTS OF LEFT SIDED DENTAL PAIN RATING AN 8. CALL LIGHT WITHIN REACH. WILL MONITOR
[2020-01-30] VITALS: BP 116/50
[2020-01-30] MEDS ORDERED: CLOPIDOGREL75 MG PO (00:18)
--- NOTE | 2020-01-30 00:30 | NUR ---
MEDS APPEAR EFFECTIVE. SLEEPING. RESPIRATIONS EASY. VSS. CALL LIGHT WITHIN REACH
--- NOTE | 2020-01-30 05:25 | NUR ---
REQUESTED AND RECEIVED TORADOL AND ATIVAN PER PRN ORDER FOR COMPLAINTS OF LEFT DENTAL PAIN AND ANXIETY. CALL LIGHT WITHIN REACH. WILL MONITOR
--- NOTE | 2020-01-30 06:00 | NUR ---
MEDS EFFECTIVE. SLEEPING. RESPIRATIONS EASY. CALL LIGHT WITHIN REACH
[2020-01-30 06:23] LABS: BASO % 0.2 % (0.0-1.0); EOS # 0.1 10*3/uL (0.0-0.4); EOS % 1.5 % (1.0-4.0); HEMATOCRIT 34.9 % (42.0-52.0); LYMPH # 2.2 10*3/uL (1.3-4.4); LYMPH % 24.8 % (27.0-41.0); MEAN CELL VOLUME 91.1 fl (80.0-94.0); MEAN CORPUSCULAR HGB 28.5 pg (27.0-31.0); MEAN CORPUSCULAR HGB CONC 31.2 g/dl (33.0-37.0); MEAN PLATELET VOLUME 9.7 fl (9.6-12.3); MONO # 0.7 10*3/uL (0.1-1.0); MONO % 7.8 % (3.0-9.0); NEUT # 5.8 10*3/uL (2.3-7.9); NEUT % 65.3 % (47.0-73.0); PLATELET COUNT AUTOMATED 226 10*3/uL (130-400); RED BLOOD COUNT 3.83 10*6/uL (4.50-5.90); RED CELL DISTRI WIDTH 15.6 % (0-14.5); WHITE BLOOD COUNT 8.9 10*3/uL (4.8-10.8)
[2020-01-30 08:00] VITALS: BP 126/76
--- NOTE | 2020-01-30 08:12 | NUR ---
Practice Or Student Teacher in to talk to patient. Patient states lives at home with his . There are 10 basement steps in the home. Physician: Dr. Lulú Koroma [facility]: [facility] Home health services: none Patient's level of ADLs: INDEPENDENT Patient has working utilities: yes DME: 02 @ 2L HS, [employer], supplier is [employer] Follow-up physician's appointment after d/c: Patient prefers to make his own appointment Does patient want to access PORTAL?: no Discharge plan Discharge plans discussed with the patient. He lives at home with his , independent with his ADL's and ambulation. Discussed home health services and he denies any home needs at this time. When medically stable he will be discharge to home with his and will have transportation home. MATHEW RUFFIN
--- NOTE | 2020-01-30 11:44 | NUR ---
PT REQUESTED AND WAS MEDICATED WITH TORADOL FOR C/O LEFT TOOTH/JAW PAIN AND ATIVAN FOR C/O ANXIETY. CALL LIGHT IN REACH. WILL MONITOR
[2020-01-30 12:00] VITALS: BP 122/75
--- NOTE | 2020-01-30 12:30 | NUR ---
MEDICATIONS EFFECTIVE PER PT. CALL LIGHT IN REACH. WILL MONITOR
[2020-01-30 16:00] VITALS: BP 107/55
--- NOTE | 2020-01-30 17:35 | NUR ---
PT REQUESTED AND WAS MEDICATED WITH TORADOL IV FOR C/O TOOTH/LEFT JAW PAIN AND ATIVAN FOR C/O ANXIETY. CALL LIGHT IN REACH. WILL MONITOR.
--- NOTE | 2020-01-30 18:20 | NUR ---
MEDICATIONS EFFECTIVE PER PT. CALL LIGHT IN REACH. WILL MONITOR
--- NOTE | 2020-01-30 19:38 | NUR ---
24 HR chart check completed.
[2020-01-30 20:00] VITALS: BP 117/71
--- NOTE | 2020-01-30 21:00 | NUR ---
RESTING IN BED WITH EYES CLOSED. NO DISTRESS NOTED. RESPIRATIONS EASY. LUNGS DIMINISHED, CLEAR. PULSE OX 96% RA. LEFT SIDED TOOTH/FACIA SWELLING NOTED. CALL LIGHT WITHIN REACH. NO VOICED COMPLAINTS
--- NOTE | 2020-01-30 23:46 | NUR ---
REQUESTED AND RECEIVED ATIVAN AND TORADOL PER PRN ORDER FOR COMPLAINTS OF ANXIETY AND LEFT SIDED TOOTH/FACIAL PAIN RATING A 5. CALL LIGHT WITHIN REACH. WILL MONITOR
[2020-01-31] VITALS: BP 100/46
--- NOTE | 2020-01-31 00:30 | NUR ---
MEDS APPEAR EFFECTIVE. SLEEPING.
--- NOTE | 2020-01-31 05:38 | NUR ---
MEDICATED WITH ATIVAN AND TORADOL PER PRN ORDER FOR COMPLAINTS OF ANXIETY AND LEFT TOOTH/FACIAL PAIN RATING A 5. CALL LIGHT WITHIN REACH. WILL MONITOR FOR EFFECTIVENESS
--- NOTE | 2020-01-31 06:20 | NUR ---
SITTING UP IN BED, NO DISTRESS NOTED. STATES RELIEF FROM EARLIER MEDS. CALL LIGHT WITHIN REACH. NO FURTHER VOICED COMPLAINTS
[2020-01-31 06:30] LABS: BASO % 0.5 % (0.0-1.0); EOS # 0.2 10*3/uL (0.0-0.4); EOS % 2.5 % (1.0-4.0); HEMATOCRIT 37.7 % (42.0-52.0); LYMPH # 2.5 10*3/uL (1.3-4.4); LYMPH % 28.1 % (27.0-41.0); MEAN CELL VOLUME 90.2 fl (80.0-94.0); MEAN PLATELET VOLUME 9.8 fl (9.6-12.3); MONO # 0.7 10*3/uL (0.1-1.0); MONO % 8.2 % (3.0-9.0); NEUT # 5.2 10*3/uL (2.3-7.9); NEUT % 59.9 % (47.0-73.0); PLATELET COUNT AUTOMATED 243 10*3/uL (130-400); RED BLOOD COUNT 4.18 10*6/uL (4.50-5.90); RED CELL DISTRI WIDTH 15.6 % (0-14.5); WHITE BLOOD COUNT 8.7 10*3/uL (4.8-10.8)
--- NOTE | 2020-01-31 09:00 | NUR ---
CM in to see patient. Discussed home health care services and he declines. He states he has seen a Dr. Elenita Polk before for dentistry but would like to see Dr. Schrader due to him seeing him here at the hospital. Explained CM will reach out to Dr. Schrader's office for appt. Asked if there was a certain day or time he would like. He states he is retired and anytime would be good. He wants to have the appt as soon as possible as he is afraid he will keep putting it off once he is discharged. When medically stable he will be discharged to home. CM will continue to follow for any discharge planning needs.
--- NOTE | 2020-01-31 09:44 | NUR ---
Spoke to Julissa at Dr. Schrader's office regarding patient requesting an appt with him as he was a consult here in the hospital and he already knows what is going on. Informed Julissa patient needs bottom teeth pulled. Julissa stated they do not take his Medicare or his [employer] insurance. She stated it would be approximately $160. Discussed with patient and explained neither of his insurances Dr. Schrader's office is able to take and it would be private pay. He states that is fine and would like the appt made. Appt made for February 10 at 8:20am. Patient notified.
[2020-01-31] MEDS ORDERED: CLINDAMYCIN HC300 MG PO (10:21)
--- NOTE | 2020-01-31 10:21 | NUR ---
Dr. Henry in and states pt can go home.
--- NOTE | 2020-01-31 11:39 | NUR ---
Ativan given per prn order and pt request for nerve pill.
--- NOTE | 2020-01-31 12:25 | NUR ---
Discharge instructions reviewed with patient. Patient receptive and verbalizes understanding. Follow-up care arranged. Written instructions given to patient. Pt is waiting on family to pick him up.
--- NOTE | 2020-01-31 13:05 | NUR ---
Pt discharged via wheelchair with belongings.
== END 2020-01-31 13:05 | disposition home or self-care (01) | DRG 158 ==
LOC: ED 07:23 → 5E 09:50 → EDHOLD 09:50 → 5E 10:46
PROVIDERS: Emergency Medicine; ADMIT Internal Medicine
DX: K04.7 Periapical abscess without sinus (principal); I50.42 Chronic combined systolic (congestive) and diastolic (congestive) heart failure; K12.2 Cellulitis and abscess of mouth; J44.9 Chronic obstructive pulmonary disease, unspecified; I11.0 Hypertensive heart disease with heart failure; I25.10 Atherosclerotic heart disease of native coronary artery without angina pectoris; F41.1 Generalized anxiety disorder; K02.9 Dental caries, unspecified; E11.9 Type 2 diabetes mellitus without complications; E66.01 Morbid (severe) obesity due to excess calories; Z88.1 Allergy status to other antibiotic agents; Z88.0 Allergy status to penicillin; Z88.8 Allergy status to other drugs, medicaments and biological substances; Z83.3 Family history of diabetes mellitus; Z82.49 Family history of ischemic heart disease and other diseases of the circulatory system

== ENCOUNTER 2020-04-28 12:38 | Emergency (ER) | payer MEDICARE, OTHER ==
[~2020-04-28] VITALS: Ht 177.8 cm; Wt 109.8 kg
[~2020-04-28 12:38] MED LIST changes: +CLINDAMYCIN HC300 MG PO; +CLOPIDOGREL75 MG PO
[2020-04-28 12:45] VITALS: BP 117/58
[2020-04-28] MEDS ORDERED: NORCO 5-325 TA1 EACH PO (15:06)
== END 2020-04-28 15:13 | disposition home or self-care (01) ==
LOC: ED 12:38
DX: S82.092A Other fracture of left patella, initial encounter for closed fracture (principal); Z88.0 Allergy status to penicillin; Z88.1 Allergy status to other antibiotic agents; Z88.6 Allergy status to analgesic agent; Z79.899 Other long term (current) drug therapy; W18.39XA Other fall on same level, initial encounter; Y93.89 Activity, other specified; Y92.89 Other specified places as the place of occurrence of the external cause; Y99.8 Other external cause status

== ENCOUNTER 2020-08-28 17:29 | Emergency (ER) | payer MEDICARE, OTHER ==
[~2020-08-28] VITALS: Ht 177.8 cm; Wt 106.1 kg
[~2020-08-28 17:29] MED LIST changes: +NORCO 5-325 TA1 EACH PO
[2020-08-28 17:35] VITALS: BP 123/71
[2020-10-04] MEDS ORDERED: ASPIRIN CHEWABL81 MG PO (13:49)
[2020-10-04] MEDS ORDERED: PLAVIX75 M1 PO (13:50)
== END 2020-08-28 17:53 | disposition home or self-care (01) ==
LOC: ED 17:29
DX: T16.1XXA Foreign body in right ear, initial encounter (principal); Z88.0 Allergy status to penicillin; Z88.8 Allergy status to other drugs, medicaments and biological substances; Z79.899 Other long term (current) drug therapy; Z98.890 Other specified postprocedural states; X58.XXXA Exposure to other specified factors, initial encounter; Y93.89 Activity, other specified; Y92.89 Other specified places as the place of occurrence of the external cause; Y99.8 Other external cause status

== ENCOUNTER 2020-10-04 21:21 | Observation (INO) | payer MEDICARE, OTHER ==
[~2020-10-04] VITALS: Ht 177.8 cm; Wt 127.5 kg
[~2020-10-04 21:21] MED LIST changes: +ASPIRIN CHEWABL81 MG PO
[2020-10-04 21:29] VITALS: BP 134/79
[2020-10-04 21:46] LABS: BASO # 0.1 10*3/uL (0.0-0.1); BASO % 0.7 % (0.0-1.0); EOS # 0.1 10*3/uL (0.0-0.4); EOS % 1.5 % (1.0-4.0); HEMATOCRIT 41.2 % (42.0-52.0); LYMPH # 3.2 10*3/uL (1.3-4.4); LYMPH % 38.8 % (27.0-41.0); MEAN CELL VOLUME 93.6 fl (80.0-94.0); MEAN CORPUSCULAR HGB 29.8 pg (27.0-31.0); MEAN CORPUSCULAR HGB CONC 31.8 g/dl (33.0-37.0); MEAN PLATELET VOLUME 9.7 fl (9.6-12.3); MONO # 0.7 10*3/uL (0.1-1.0); MONO % 8.7 % (3.0-9.0); NEUT # 4.1 10*3/uL (2.3-7.9); NEUT % 50.1 % (47.0-73.0); PLATELET COUNT AUTOMATED 256 10*3/uL (130-400); WHITE BLOOD COUNT 8.2 10*3/uL (4.8-10.8)
[2020-10-04 22:03] LABS: ACT PARTIAL THROMBO TIME 25.5 SECONDS (20.0-32.1); ALBUMIN 3.2 gm/dl (3.1-4.5); ALKALINE PHOSPHATASE 95 U/L (45-117); BUN 18 mg/dl (7-24); CHLORIDE 107 mmol/L (98-107); POTASSIUM 3.9 mmol/L (3.5-5.1); SGOT/AST 23 IU/L (3-35); SGPT/ALT 33 U/L (12-78); SODIUM 141 mmol/L (136-145)
[2020-10-04 22:07] LABS: TROPONIN I 0.155 ng/ml (<0.045)
[2020-10-04 23:34] VITALS: BP 141/80
[2020-10-05 00:21] VITALS: BP 111/74
[2020-10-05 08:44] VITALS: BP 138/79
[2020-10-05 10:51] VITALS: BP 102/63
[2020-10-05 12:50] VITALS: BP 138/90
[2020-10-05 15:08] VITALS: BP 121/70
[2020-10-05 20:00] VITALS: BP 133/75
[2020-10-06] VITALS: BP 129/71
[2020-10-06 08:00] VITALS: BP 152/82
[2020-10-06 16:00] VITALS: BP 114/70
== END 2020-10-06 17:16 ==
LOC: ED 21:21 → EDHOLD 23:11 → 5E 23:26
PROVIDERS: Emergency Medicine; ADMIT Internal Medicine; ATTEND Internal Medicine
DX: I25.10 Atherosclerotic heart disease of native coronary artery without angina pectoris (principal); I11.0 Hypertensive heart disease with heart failure; I50.22 Chronic systolic (congestive) heart failure; F41.1 Generalized anxiety disorder; J44.9 Chronic obstructive pulmonary disease, unspecified; E11.9 Type 2 diabetes mellitus without complications; E78.2 Mixed hyperlipidemia; Z79.84 Long term (current) use of oral hypoglycemic drugs; Z79.82 Long term (current) use of aspirin; Z79.899 Other long term (current) drug therapy

== ENCOUNTER 2020-11-23 23:50 | Emergency (ER) | payer MEDICARE, OTHER ==
[2020-11-23 23:55] VITALS: BP 95/58
[2020-11-24 02:09] LABS: BASO % 0.3 % (0.0-1.0); EOS # 0.1 10*3/uL (0.0-0.4); EOS % 0.4 % (1.0-4.0); LYMPH # 3.4 10*3/uL (1.3-4.4); LYMPH % 24.8 % (27.0-41.0); MEAN CELL VOLUME 93.6 fl (80.0-94.0); MEAN CORPUSCULAR HGB 30.8 pg (27.0-31.0); MEAN CORPUSCULAR HGB CONC 32.9 g/dl (33.0-37.0); MEAN PLATELET VOLUME 9.8 fl (9.6-12.3); MONO # 0.9 10*3/uL (0.1-1.0); MONO % 6.6 % (3.0-9.0); NEUT # 9.1 10*3/uL (2.3-7.9); NEUT % 67.1 % (47.0-73.0); PLATELET COUNT AUTOMATED 281 10*3/uL (130-400); RED BLOOD COUNT 4.06 10*6/uL (4.50-5.90); RED CELL DISTRI WIDTH 13.2 % (0-14.5); WHITE BLOOD COUNT 13.6 10*3/uL (4.8-10.8)
== END 2020-11-24 05:31 | disposition home or self-care (01) ==
LOC: ED 23:50
PROVIDERS: Internal Medicine
DX: S61.511A Laceration without foreign body of right wrist, initial encounter (principal); S81.811A Laceration without foreign body, right lower leg, initial encounter; Z88.0 Allergy status to penicillin; Z88.8 Allergy status to other drugs, medicaments and biological substances; Z79.899 Other long term (current) drug therapy; Z98.890 Other specified postprocedural states; X58.XXXA Exposure to other specified factors, initial encounter; Y93.89 Activity, other specified; Y92.89 Other specified places as the place of occurrence of the external cause; Y99.8 Other external cause status

== ENCOUNTER → 2020-11-24 | Outpatient (CLI) | payer MEDICARE, OTHER | LOC: WOUNDCARE 08:52 | PROVIDERS: ATTEND Nurse Practitioner | DX: S61.411A Laceration without foreign body of right hand, initial encounter (principal); S81.811A Laceration without foreign body, right lower leg, initial encounter; E11.9 Type 2 diabetes mellitus without complications; I10 Essential (primary) hypertension; J44.9 Chronic obstructive pulmonary disease, unspecified; Z87.891 Personal history of nicotine dependence; W19.XXXA Unspecified fall, initial encounter; Y93.89 Activity, other specified; Y92.89 Other specified places as the place of occurrence of the external cause; Y99.8 Other external cause status ==

== ENCOUNTER 2020-11-27 13:15 | Observation (INO) | payer MEDICARE, OTHER ==
[~2020-11-27] VITALS: Ht 177.8 cm; Wt 102.2 kg
[2020-11-27 13:22] VITALS: BP 99/64
[2020-11-27] MEDS ORDERED: SPIRIVA18 MCG PO (13:54)
[2020-11-27 14:00] VITALS: BP 107/56; BP 98/67
[2020-11-27 14:34] LABS: BASO % 0.3 % (0.0-1.0); EOS # 0.1 10*3/uL (0.0-0.4); EOS % 1.2 % (1.0-4.0); HEMATOCRIT 32.2 % (42.0-52.0); LYMPH % 32.6 % (27.0-41.0); MEAN CORPUSCULAR HGB 31.3 pg (27.0-31.0); MEAN CORPUSCULAR HGB CONC 32.9 g/dl (33.0-37.0); MONO # 0.7 10*3/uL (0.1-1.0); MONO % 7.3 % (3.0-9.0); NEUT # 5.3 10*3/uL (2.3-7.9); NEUT % 58.2 % (47.0-73.0); PLATELET COUNT AUTOMATED 236 10*3/uL (130-400); RED BLOOD COUNT 3.39 10*6/uL (4.50-5.90); RED CELL DISTRI WIDTH 13.3 % (0-14.5); WHITE BLOOD COUNT 9.1 10*3/uL (4.8-10.8)
[2020-11-27 14:53] LABS: ALBUMIN 2.8 gm/dl (3.1-4.5); ALKALINE PHOSPHATASE 88 U/L (45-117); BUN 21 mg/dl (7-24); CHLORIDE 104 mmol/L (98-107); LIPASE 63 U/L (73-393); SGOT/AST 13 IU/L (3-35); SGPT/ALT 20 U/L (12-78); SODIUM 137 mmol/L (136-145); TOTAL PROTEIN 6.1 gm/dL (6.4-8.2)
[2020-11-27 14:56] LABS: TROPONIN I 0.058 ng/ml (<0.045)
[2020-11-27 16:43] LABS: BILIRUBIN Negative (Negative); BLOOD Negative (Negative); CLARITY Clear (Clear); COLOR Yellow (Yellow); GLUCOSE Negative (Negative); KETONE Negative (Negative); LEUKO ESTERASE Negative (Negative); NITRITE Negative (Negative); PH 6.5 (4.5-8.0)
[2020-11-27 16:59] LABS: BACTERIA TRACE; EPITHELIAL CELLS 0-2; RBC 0-2 rbc/hpf (0-2); WBC 0-2 wbc/hpf (0-5)
[2020-11-27 21:34] VITALS: BP 106/52
[2020-11-27 22:00] LABS: BASO % 0.2 % (0.0-1.0); EOS # 0.1 10*3/uL (0.0-0.4); EOS % 1.4 % (1.0-4.0); HEMATOCRIT 30.1 % (42.0-52.0); LYMPH # 3.1 10*3/uL (1.3-4.4); LYMPH % 36.8 % (27.0-41.0); MEAN CELL VOLUME 94.7 fl (80.0-94.0); MEAN CORPUSCULAR HGB 31.1 pg (27.0-31.0); MEAN CORPUSCULAR HGB CONC 32.9 g/dl (33.0-37.0); MONO # 0.6 10*3/uL (0.1-1.0); MONO % 7.7 % (3.0-9.0); NEUT # 4.4 10*3/uL (2.3-7.9); NEUT % 53.4 % (47.0-73.0); PLATELET COUNT AUTOMATED 214 10*3/uL (130-400); RED BLOOD COUNT 3.18 10*6/uL (4.50-5.90); RED CELL DISTRI WIDTH 13.2 % (0-14.5); WHITE BLOOD COUNT 8.3 10*3/uL (4.8-10.8)
[2020-11-28] VITALS (10 sets, daily range): BP systolic 98–133; BP diastolic 58–75
[2020-11-29] VITALS: BP 113/66
[2020-11-29 06:01] LABS: BUN 13 mg/dl (7-24); CHLORIDE 109 mmol/L (98-107); CREATININE 0.88 mg/dL (0.70-1.30); POTASSIUM 3.7 mmol/L (3.5-5.1); SODIUM 139 mmol/L (136-145)
[2020-11-29 06:22] LABS: BASO % 0.5 % (0.0-1.0); EOS # 0.1 10*3/uL (0.0-0.4); EOS % 1.8 % (1.0-4.0); LYMPH # 2.4 10*3/uL (1.3-4.4); MEAN CORPUSCULAR HGB 30.3 pg (27.0-31.0); MEAN CORPUSCULAR HGB CONC 31.3 g/dl (33.0-37.0); MEAN PLATELET VOLUME 10.3 fl (9.6-12.3); MONO # 0.6 10*3/uL (0.1-1.0); MONO % 7.6 % (3.0-9.0); NEUT # 4.5 10*3/uL (2.3-7.9); NEUT % 58.4 % (47.0-73.0); PLATELET COUNT AUTOMATED 234 10*3/uL (130-400); RED CELL DISTRI WIDTH 13.2 % (0-14.5); WHITE BLOOD COUNT 7.6 10*3/uL (4.8-10.8)
[2020-11-29 08:00] VITALS: BP 127/54
[2020-11-29 12:00] VITALS: BP 132/58
[2020-11-29] MEDS ORDERED: CLOPIDOGREL75 MG PO (15:26)
[2020-11-29] MEDS ORDERED: Carafate1 GM PO (15:40)
[2020-11-29 16:00] VITALS: BP 113/62
== END 2020-11-29 16:38 | disposition home or self-care (01) ==
LOC: ED 13:15 → EDHOLD 16:52 → 5E 11-28 07:58
PROVIDERS: Emergency Medicine; ADMIT Internal Medicine; ATTEND Internal Medicine
DX: K92.2 Gastrointestinal hemorrhage, unspecified (principal); R42 Dizziness and giddiness; I95.9 Hypotension, unspecified; D62 Acute posthemorrhagic anemia; K29.00 Acute gastritis without bleeding; K25.9 Gastric ulcer, unspecified as acute or chronic, without hemorrhage or perforation; I25.10 Atherosclerotic heart disease of native coronary artery without angina pectoris; E78.2 Mixed hyperlipidemia; F51.04 Psychophysiologic insomnia; F41.1 Generalized anxiety disorder; F32.9 Major depressive disorder, single episode, unspecified; Z83.3 Family history of diabetes mellitus; Z98.890 Other specified postprocedural states; Z82.49 Family history of ischemic heart disease and other diseases of the circulatory system

== ENCOUNTER → 2020-12-01 | Outpatient (CLI) | payer MEDICARE, OTHER ==
[~2020-12-01] MED LIST changes: +Carafate1 GM PO; +SPIRIVA18 MCG PO
== END ==
LOC: WOUNDCARE
PROVIDERS: ATTEND Nurse Practitioner
DX: S61.411D Laceration without foreign body of right hand, subsequent encounter (principal); S81.811D Laceration without foreign body, right lower leg, subsequent encounter; E11.9 Type 2 diabetes mellitus without complications; J44.9 Chronic obstructive pulmonary disease, unspecified; I11.9 Hypertensive heart disease without heart failure; Z87.891 Personal history of nicotine dependence; W19.XXXD Unspecified fall, subsequent encounter

== ENCOUNTER → 2020-12-03 | Outpatient (CLI) | payer MEDICARE, OTHER ==
[2020-12-03 10:33] LABS: BASO # 0.1 10*3/uL (0.0-0.1); BASO % 0.6 % (0.0-1.0); EOS # 0.2 10*3/uL (0.0-0.4); EOS % 2.4 % (1.0-4.0); HEMATOCRIT 33.4 % (42.0-52.0); LYMPH % 24.3 % (27.0-41.0); MEAN CELL VOLUME 95.2 fl (80.0-94.0); MEAN CORPUSCULAR HGB 30.5 pg (27.0-31.0); MEAN PLATELET VOLUME 9.7 fl (9.6-12.3); MONO # 0.7 10*3/uL (0.1-1.0); MONO % 7.7 % (3.0-9.0); NEUT # 5.4 10*3/uL (2.3-7.9); NEUT % 64.6 % (47.0-73.0); PLATELET COUNT AUTOMATED 315 10*3/uL (130-400); RED BLOOD COUNT 3.51 10*6/uL (4.50-5.90); RED CELL DISTRI WIDTH 13.3 % (0-14.5); WHITE BLOOD COUNT 8.4 10*3/uL (4.8-10.8)
[2020-12-03 10:59] LABS: BUN 19 mg/dl (7-24); CHLORIDE 105 mmol/L (98-107); CREATININE 1.12 mg/dL (0.70-1.30); SODIUM 140 mmol/L (136-145)
== END | disposition home or self-care (01) ==
LOC: LAB 10:06
PROVIDERS: ATTEND Internal Medicine
DX: Z13.1 Encounter for screening for diabetes mellitus (principal); Z13.21 Encounter for screening for nutritional disorder; Z13.220 Encounter for screening for lipoid disorders; Z13.0 Encounter for screening for diseases of the blood and blood-forming organs and certain disorders involving the immune mechanism; I25.10 Atherosclerotic heart disease of native coronary artery without angina pectoris; E03.9 Hypothyroidism, unspecified; E11.9 Type 2 diabetes mellitus without complications; I10 Essential (primary) hypertension; D52.9 Folate deficiency anemia, unspecified; D51.9 Vitamin B12 deficiency anemia, unspecified; R70.0 Elevated erythrocyte sedimentation rate; R79.82 Elevated C-reactive protein (CRP); R74.8 Abnormal levels of other serum enzymes; R79.89 Other specified abnormal findings of blood chemistry; R53.81 Other malaise; E55.9 Vitamin D deficiency, unspecified

== ENCOUNTER → 2020-12-10 | Outpatient (CLI) | payer MEDICARE, OTHER | LOC: WOUNDCARE 05:38 | PROVIDERS: ATTEND Nurse Practitioner | DX: S81.811D Laceration without foreign body, right lower leg, subsequent encounter (principal); S51.012A Laceration without foreign body of left elbow, initial encounter; S61.411D Laceration without foreign body of right hand, subsequent encounter; E11.9 Type 2 diabetes mellitus without complications; J44.9 Chronic obstructive pulmonary disease, unspecified; I11.9 Hypertensive heart disease without heart failure; Z87.891 Personal history of nicotine dependence; W19.XXXD Unspecified fall, subsequent encounter; W07.XXXA Fall from chair, initial encounter; Y93.89 Activity, other specified; Y92.89 Other specified places as the place of occurrence of the external cause; Y99.8 Other external cause status ==

== ENCOUNTER → 2020-12-17 | Outpatient (CLI) | payer MEDICARE, OTHER | LOC: WOUNDCARE 02:18 | PROVIDERS: ATTEND Nurse Practitioner | DX: S81.811D Laceration without foreign body, right lower leg, subsequent encounter (principal); S51.012D Laceration without foreign body of left elbow, subsequent encounter; S61.411D Laceration without foreign body of right hand, subsequent encounter; E11.9 Type 2 diabetes mellitus without complications; J44.9 Chronic obstructive pulmonary disease, unspecified; I11.9 Hypertensive heart disease without heart failure; Z87.891 Personal history of nicotine dependence; W19.XXXD Unspecified fall, subsequent encounter; W07.XXXD Fall from chair, subsequent encounter ==

== ENCOUNTER → 2020-12-24 | Outpatient (CLI) | payer MEDICARE, OTHER ==
[~2020-12-24] MED LIST changes: +MITIGARE0.6 MG PO; +TYLENOL325 M1 PO; +ULTRAM50 MG PO
== END ==
LOC: WOUNDCARE 00:56
PROVIDERS: ATTEND Nurse Practitioner
DX: S81.811D Laceration without foreign body, right lower leg, subsequent encounter (principal); S61.411D Laceration without foreign body of right hand, subsequent encounter; E11.9 Type 2 diabetes mellitus without complications; I11.9 Hypertensive heart disease without heart failure; J44.9 Chronic obstructive pulmonary disease, unspecified; Z87.891 Personal history of nicotine dependence; W19.XXXD Unspecified fall, subsequent encounter

== ENCOUNTER → 2021-01-01 | Outpatient (CLI) | payer MEDICARE, OTHER | LOC: WOUNDCARE 01:57 | PROVIDERS: ATTEND Nurse Practitioner | DX: S81.811D Laceration without foreign body, right lower leg, subsequent encounter (principal); S61.411D Laceration without foreign body of right hand, subsequent encounter; E11.9 Type 2 diabetes mellitus without complications; I11.9 Hypertensive heart disease without heart failure; J44.9 Chronic obstructive pulmonary disease, unspecified; Z87.891 Personal history of nicotine dependence; W19.XXXD Unspecified fall, subsequent encounter ==

== ENCOUNTER 2021-01-03 08:48 | Emergency (ER) | payer MEDICARE, OTHER ==
[~2021-01-03] VITALS: Ht 177.8 cm; Wt 102.1 kg
[~2021-01-03 08:48] MED LIST changes: -MITIGARE0.6 MG PO; -TYLENOL325 M1 PO; -ULTRAM50 MG PO
[2021-01-03 08:54] VITALS: BP 117/64
[2021-01-03] MEDS ORDERED: TYLENOL325 M1 PO (09:25)
[2021-01-03] MEDS ORDERED: ULTRAM50 MG PO (09:26)
[2021-01-03 12:52] LABS: BODY FLUID WBC 9163 /uL
[2021-01-03 13:16] LABS: BF MACROPHAGES 5 %; BF NEUTROPHILS 95 %
[2021-01-03] MEDS ORDERED: MITIGARE0.6 MG PO (14:05)
== END 2021-01-03 10:06 | disposition home or self-care (01) ==
LOC: ED 08:48
PROVIDERS: Emergency Medicine
DX: M70.31 Other bursitis of elbow, right elbow (principal); I25.10 Atherosclerotic heart disease of native coronary artery without angina pectoris; J44.9 Chronic obstructive pulmonary disease, unspecified; I50.9 Heart failure, unspecified; I25.2 Old myocardial infarction; Z88.0 Allergy status to penicillin; Z88.8 Allergy status to other drugs, medicaments and biological substances; Z88.1 Allergy status to other antibiotic agents; Z79.899 Other long term (current) drug therapy; Z86.73 Personal history of transient ischemic attack (TIA), and cerebral infarction without residual deficits; Y93.89 Activity, other specified

== ENCOUNTER → 2021-01-07 | Outpatient (CLI) | payer MEDICARE, OTHER ==
[~2021-01-07] MED LIST changes: +MITIGARE0.6 MG PO; +TYLENOL325 M1 PO; +ULTRAM50 MG PO
== END ==
LOC: WOUNDCARE 09:03
PROVIDERS: ATTEND Nurse Practitioner Primary Care
DX: S81.811D Laceration without foreign body, right lower leg, subsequent encounter (principal); E11.9 Type 2 diabetes mellitus without complications; I11.9 Hypertensive heart disease without heart failure; J44.9 Chronic obstructive pulmonary disease, unspecified; Z87.891 Personal history of nicotine dependence; W19.XXXD Unspecified fall, subsequent encounter

== ENCOUNTER → 2021-08-13 | Outpatient (CLI) | payer MEDICARE, OTHER ==
[2021-08-13 11:12] LABS: BUN 18 mg/dl (7-24); CHLORIDE 107 mmol/L (98-107); CREATININE 1.28 mg/dL (0.70-1.30); SODIUM 137 mmol/L (136-145)
== END | disposition home or self-care (01) ==
LOC: LAB 10:37
PROVIDERS: ATTEND Registered Nurse
DX: I25.5 Ischemic cardiomyopathy (principal)

== ENCOUNTER 2021-09-07 11:50 | Emergency (ER) | payer MEDICARE, OTHER ==
[~2021-09-07] VITALS: Ht 177.8 cm; Wt 102.1 kg
[2021-09-07 12:30] LABS: BASO # 0.1 10*3/uL (0.0-0.1); BASO % 0.9 % (0.0-1.0); EOS # 0.1 10*3/uL (0.0-0.4); EOS % 1.6 % (1.0-4.0); HEMATOCRIT 37.7 % (42.0-52.0); LYMPH # 2.5 10*3/uL (1.3-4.4); LYMPH % 35.9 % (27.0-41.0); MEAN CORPUSCULAR HGB 29.4 pg (27.0-31.0); MEAN CORPUSCULAR HGB CONC 32.6 g/dl (33.0-37.0); MONO # 0.4 10*3/uL (0.1-1.0); MONO % 5.6 % (3.0-9.0); NEUT # 3.9 10*3/uL (2.3-7.9); NEUT % 55.6 % (47.0-73.0); PLATELET COUNT AUTOMATED 214 10*3/uL (130-400); RED BLOOD COUNT 4.19 10*6/uL (4.50-5.90); RED CELL DISTRI WIDTH 15.4 % (0-14.5); WHITE BLOOD COUNT 6.9 10*3/uL (4.8-10.8)
[2021-09-07 12:39] LABS: INTERNATIONAL NORM RATIO 0.9 (2.0-3.5)
[2021-09-07 12:59] LABS: ALKALINE PHOSPHATASE 102 U/L (45-117); BUN 20 mg/dl (7-24); CHLORIDE 109 mmol/L (98-107); CREATININE 1.21 mg/dL (0.70-1.30); POTASSIUM 3.8 mmol/L (3.5-5.1); SGOT/AST 17 IU/L (3-35); SODIUM 140 mmol/L (136-145); TOTAL PROTEIN 6.6 gm/dL (6.4-8.2)
[2021-09-07 13:00] LABS: SGPT/ALT 27 U/L (12-78)
[2021-09-07 14:53] VITALS: BP 126/76
== END 2021-09-07 16:38 | disposition home or self-care (01) ==
LOC: ED 11:50
PROVIDERS: Physician Assistant
DX: M79.601 Pain in right arm (principal); M79.602 Pain in left arm; M25.511 Pain in right shoulder; M25.512 Pain in left shoulder; Z88.0 Allergy status to penicillin; Z88.8 Allergy status to other drugs, medicaments and biological substances; Z79.899 Other long term (current) drug therapy

== ENCOUNTER → 2021-11-24 | Outpatient (CLI) | payer MEDICARE, OTHER | END | disposition home or self-care (01) | LOC: WOUNDCARE 11:03 | PROVIDERS: ATTEND Nurse Practitioner Family | DX: E11.622 Type 2 diabetes mellitus with other skin ulcer (principal); L97.812 Non-pressure chronic ulcer of other part of right lower leg with fat layer exposed; S81.801A Unspecified open wound, right lower leg, initial encounter; I11.9 Hypertensive heart disease without heart failure; J44.9 Chronic obstructive pulmonary disease, unspecified; Z87.891 Personal history of nicotine dependence; Z95.5 Presence of coronary angioplasty implant and graft; X58.XXXA Exposure to other specified factors, initial encounter; Y93.89 Activity, other specified; Y92.89 Other specified places as the place of occurrence of the external cause; Y99.8 Other external cause status ==

== ENCOUNTER → 2021-12-02 | Outpatient (CLI) | payer MEDICARE, OTHER | LOC: WOUNDCARE 00:56 | PROVIDERS: ATTEND Nurse Practitioner Family | DX: S81.801D Unspecified open wound, right lower leg, subsequent encounter (principal); E11.622 Type 2 diabetes mellitus with other skin ulcer; L97.812 Non-pressure chronic ulcer of other part of right lower leg with fat layer exposed; I11.9 Hypertensive heart disease without heart failure; J44.9 Chronic obstructive pulmonary disease, unspecified; Z87.891 Personal history of nicotine dependence; Z95.5 Presence of coronary angioplasty implant and graft; X58.XXXD Exposure to other specified factors, subsequent encounter ==

== ENCOUNTER → 2021-12-08 | Outpatient (CLI) | payer MEDICARE, OTHER | END | disposition home or self-care (01) | LOC: US 02:58 | PROVIDERS: ATTEND Internal Medicine | DX: I65.23 Occlusion and stenosis of bilateral carotid arteries (principal) ==

== ENCOUNTER → 2021-12-09 | Outpatient (CLI) | payer MEDICARE, OTHER | END | disposition home or self-care (01) | LOC: WOUNDCARE 02:37 | PROVIDERS: ATTEND Nurse Practitioner Family | DX: S81.801D Unspecified open wound, right lower leg, subsequent encounter (principal); E11.622 Type 2 diabetes mellitus with other skin ulcer; L97.812 Non-pressure chronic ulcer of other part of right lower leg with fat layer exposed; I10 Essential (primary) hypertension; J44.9 Chronic obstructive pulmonary disease, unspecified; Z87.891 Personal history of nicotine dependence; Z95.5 Presence of coronary angioplasty implant and graft; X58.XXXD Exposure to other specified factors, subsequent encounter ==

== ENCOUNTER → 2021-12-18 | Outpatient (CLI) | payer MEDICARE, OTHER | END | disposition home or self-care (01) | LOC: WOUNDCARE 01:56 | PROVIDERS: ATTEND Nurse Practitioner Family | DX: S81.801D Unspecified open wound, right lower leg, subsequent encounter (principal); E11.622 Type 2 diabetes mellitus with other skin ulcer; L97.812 Non-pressure chronic ulcer of other part of right lower leg with fat layer exposed; I83.018 Varicose veins of right lower extremity with ulcer other part of lower leg; I10 Essential (primary) hypertension; J44.9 Chronic obstructive pulmonary disease, unspecified; Z87.891 Personal history of nicotine dependence; Z95.5 Presence of coronary angioplasty implant and graft; X58.XXXD Exposure to other specified factors, subsequent encounter ==

== ENCOUNTER → 2021-12-23 | Outpatient (CLI) | payer MEDICARE, OTHER | END | disposition home or self-care (01) | LOC: WOUNDCARE 10:04 | PROVIDERS: ATTEND Nurse Practitioner Family | DX: E11.622 Type 2 diabetes mellitus with other skin ulcer (principal); I83.018 Varicose veins of right lower extremity with ulcer other part of lower leg; L97.812 Non-pressure chronic ulcer of other part of right lower leg with fat layer exposed; S81.801D Unspecified open wound, right lower leg, subsequent encounter; J44.9 Chronic obstructive pulmonary disease, unspecified; I10 Essential (primary) hypertension; Z87.891 Personal history of nicotine dependence; Z95.5 Presence of coronary angioplasty implant and graft; X58.XXXD Exposure to other specified factors, subsequent encounter ==

== ENCOUNTER → 2021-12-29 | Outpatient (CLI) | payer MEDICARE, OTHER | END | disposition home or self-care (01) | LOC: WOUNDCARE 01:24 | PROVIDERS: ATTEND Nurse Practitioner Family | DX: E11.622 Type 2 diabetes mellitus with other skin ulcer (principal); I83.018 Varicose veins of right lower extremity with ulcer other part of lower leg; L97.812 Non-pressure chronic ulcer of other part of right lower leg with fat layer exposed; S81.801D Unspecified open wound, right lower leg, subsequent encounter; J44.9 Chronic obstructive pulmonary disease, unspecified; I10 Essential (primary) hypertension; Z87.891 Personal history of nicotine dependence; Z95.5 Presence of coronary angioplasty implant and graft; X58.XXXD Exposure to other specified factors, subsequent encounter ==

== ENCOUNTER → 2022-01-07 | Outpatient (CLI) | payer MEDICARE, OTHER | END | disposition home or self-care (01) | LOC: WOUNDCARE 01:04 | PROVIDERS: ATTEND Nurse Practitioner Family | DX: E11.622 Type 2 diabetes mellitus with other skin ulcer (principal); I83.018 Varicose veins of right lower extremity with ulcer other part of lower leg; L97.812 Non-pressure chronic ulcer of other part of right lower leg with fat layer exposed; I10 Essential (primary) hypertension; J44.9 Chronic obstructive pulmonary disease, unspecified; Z87.891 Personal history of nicotine dependence; Z95.5 Presence of coronary angioplasty implant and graft ==

== ENCOUNTER → 2022-01-13 | Outpatient (CLI) | payer MEDICARE, OTHER | END | disposition home or self-care (01) | LOC: WOUNDCARE 01:00 | PROVIDERS: ATTEND Nurse Practitioner Family | DX: E11.622 Type 2 diabetes mellitus with other skin ulcer (principal); I83.018 Varicose veins of right lower extremity with ulcer other part of lower leg; L97.812 Non-pressure chronic ulcer of other part of right lower leg with fat layer exposed; S81.801D Unspecified open wound, right lower leg, subsequent encounter; I11.9 Hypertensive heart disease without heart failure; J44.9 Chronic obstructive pulmonary disease, unspecified; Z87.891 Personal history of nicotine dependence; Z95.5 Presence of coronary angioplasty implant and graft; X58.XXXD Exposure to other specified factors, subsequent encounter ==

== ENCOUNTER → 2022-01-21 | Outpatient (CLI) | payer MEDICARE, OTHER | END | disposition home or self-care (01) | LOC: WOUNDCARE 01:50 | PROVIDERS: ATTEND Nurse Practitioner Family | DX: S81.801D Unspecified open wound, right lower leg, subsequent encounter (principal); E11.622 Type 2 diabetes mellitus with other skin ulcer; I83.018 Varicose veins of right lower extremity with ulcer other part of lower leg; L97.812 Non-pressure chronic ulcer of other part of right lower leg with fat layer exposed; I10 Essential (primary) hypertension; J44.9 Chronic obstructive pulmonary disease, unspecified; Z87.891 Personal history of nicotine dependence; Z95.5 Presence of coronary angioplasty implant and graft; X58.XXXD Exposure to other specified factors, subsequent encounter ==

== ENCOUNTER → 2022-01-28 | Outpatient (CLI) | payer MEDICARE, OTHER ==
[2022-01-28 12:36] LABS: BASO # 0.1 10*3/uL (0.0-0.1); EOS # 0.3 10*3/uL (0.0-0.4); EOS % 3.8 % (1.0-4.0); HEMATOCRIT 38.2 % (42.0-52.0); LYMPH # 2.7 10*3/uL (1.3-4.4); LYMPH % 37.2 % (27.0-41.0); MEAN CELL VOLUME 88.2 fl (80.0-94.0); MEAN PLATELET VOLUME 10.2 fl (9.6-12.3); MONO # 0.6 10*3/uL (0.1-1.0); MONO % 7.7 % (3.0-9.0); NEUT # 3.6 10*3/uL (2.3-7.9); PLATELET COUNT AUTOMATED 253 10*3/uL (130-400); RED BLOOD COUNT 4.33 10*6/uL (4.50-5.90); RED CELL DISTRI WIDTH 14.7 % (0-14.5); WHITE BLOOD COUNT 7.3 10*3/uL (4.8-10.8)
[2022-01-28 12:53] LABS: ALKALINE PHOSPHATASE 136 U/L (45-117); BUN 15 mg/dl (7-24); CHLORIDE 105 mmol/L (98-107); CHOLESTEROL 246 mg/dL (<200); CREATININE 1.38 mg/dL (0.70-1.30); FREE T4 0.87 ng/dl (0.76-1.46); POTASSIUM 3.9 mmol/L (3.5-5.1); SGOT/AST 21 IU/L (3-35); SGPT/ALT 28 U/L (12-78); SODIUM 136 mmol/L (136-145); T3 UPTAKE 33 % (31-39); TOTAL PROTEIN 7.4 gm/dL (6.4-8.2); TRIGLYCERIDES 725 mg/dl (<150)
[2022-01-28 13:27] LABS: VITAMIN D, 25-HYDROXY 21.4 ng/mL (30-100)
== END ==
LOC: WOUNDCARE 01:02 → LAB 01:02 → WOUNDCARE 09:32
PROVIDERS: Internal Medicine; ATTEND Nurse Practitioner Family
DX: E11.622 Type 2 diabetes mellitus with other skin ulcer (principal); I83.018 Varicose veins of right lower extremity with ulcer other part of lower leg; L97.812 Non-pressure chronic ulcer of other part of right lower leg with fat layer exposed; S81.801D Unspecified open wound, right lower leg, subsequent encounter; E43 Unspecified severe protein-calorie malnutrition; I11.9 Hypertensive heart disease without heart failure; J44.9 Chronic obstructive pulmonary disease, unspecified; Z87.891 Personal history of nicotine dependence; Z95.5 Presence of coronary angioplasty implant and graft; X58.XXXD Exposure to other specified factors, subsequent encounter

== ENCOUNTER → 2022-02-04 | Outpatient (CLI) | payer MEDICARE, OTHER | END | disposition home or self-care (01) | LOC: WOUNDCARE 00:23 | PROVIDERS: ATTEND Nurse Practitioner Family | DX: E11.622 Type 2 diabetes mellitus with other skin ulcer (principal); I83.018 Varicose veins of right lower extremity with ulcer other part of lower leg; L97.812 Non-pressure chronic ulcer of other part of right lower leg with fat layer exposed; I11.9 Hypertensive heart disease without heart failure; J44.9 Chronic obstructive pulmonary disease, unspecified; Z87.891 Personal history of nicotine dependence; Z95.5 Presence of coronary angioplasty implant and graft ==

== ENCOUNTER → 2022-02-11 | Outpatient (CLI) | payer MEDICARE, OTHER | END | disposition home or self-care (01) | LOC: WOUNDCARE 00:58 | PROVIDERS: ATTEND Nurse Practitioner Family | DX: E11.622 Type 2 diabetes mellitus with other skin ulcer (principal); L97.812 Non-pressure chronic ulcer of other part of right lower leg with fat layer exposed; I83.018 Varicose veins of right lower extremity with ulcer other part of lower leg; I11.9 Hypertensive heart disease without heart failure; J44.9 Chronic obstructive pulmonary disease, unspecified; Z87.891 Personal history of nicotine dependence; Z95.5 Presence of coronary angioplasty implant and graft ==

== ENCOUNTER 2022-02-26 19:32 | Emergency (ER) | payer MEDICARE, OTHER ==
[~2022-02-26] VITALS: Ht 177.8 cm; Wt 106.6 kg
[2022-02-26 19:42] VITALS: BP 129/61
== END 2022-02-26 21:31 | disposition home or self-care (01) ==
LOC: ED 19:32
DX: S61.412A Laceration without foreign body of left hand, initial encounter (principal); Z79.899 Other long term (current) drug therapy; Z88.0 Allergy status to penicillin; Z88.1 Allergy status to other antibiotic agents; Z88.8 Allergy status to other drugs, medicaments and biological substances; W22.8XXA Striking against or struck by other objects, initial encounter; Y93.89 Activity, other specified; Y92.89 Other specified places as the place of occurrence of the external cause; Y99.8 Other external cause status

== ENCOUNTER → 2022-03-16 | Outpatient (CLI) | payer MEDICARE, OTHER ==
[2022-03-16 13:26] LABS: BASO # 0.1 10*3/uL (0.0-0.1); BASO % 1.4 % (0.0-1.0); EOS # 0.2 10*3/uL (0.0-0.4); EOS % 3.2 % (1.0-4.0); HEMATOCRIT 40.5 % (42.0-52.0); LYMPH % 44.7 % (27.0-41.0); MEAN CELL VOLUME 91.2 fl (80.0-94.0); MEAN CORPUSCULAR HGB CONC 32.8 g/dl (33.0-37.0); MEAN PLATELET VOLUME 9.8 fl (9.6-12.3); MONO # 0.5 10*3/uL (0.1-1.0); MONO % 8.1 % (3.0-9.0); NEUT # 2.8 10*3/uL (2.3-7.9); NEUT % 42.3 % (47.0-73.0); PLATELET COUNT AUTOMATED 262 10*3/uL (130-400); RED BLOOD COUNT 4.44 10*6/uL (4.50-5.90); RED CELL DISTRI WIDTH 14.5 % (0-14.5); WHITE BLOOD COUNT 6.7 10*3/uL (4.8-10.8)
[2022-03-16 14:19] LABS: VITAMIN D, 25-HYDROXY 21.7 ng/mL (30-100)
[2022-03-16 17:27] LABS: CREATININE 1.53 mg/dL (0.70-1.30); FREE T4 0.83 ng/dl (0.76-1.46); POTASSIUM 4.3 mmol/L (3.5-5.1); TOTAL PROTEIN 7.5 gm/dL (6.4-8.2)
[2022-03-16 17:31] LABS: THYROID STIM HORMONE (HS) 1.11 uIU/ml (0.358-4.75)
== END | disposition home or self-care (01) ==
LOC: LAB 12:45
PROVIDERS: ATTEND Internal Medicine
DX: E11.649 Type 2 diabetes mellitus with hypoglycemia without coma (principal); I10 Essential (primary) hypertension; E78.2 Mixed hyperlipidemia; E55.9 Vitamin D deficiency, unspecified; R73.09 Other abnormal glucose; Z13.9 Encounter for screening, unspecified; Z13.0 Encounter for screening for diseases of the blood and blood-forming organs and certain disorders involving the immune mechanism; Z13.1 Encounter for screening for diabetes mellitus; Z13.21 Encounter for screening for nutritional disorder; Z13.228 Encounter for screening for other metabolic disorders; Z13.6 Encounter for screening for cardiovascular disorders; Z13.29 Encounter for screening for other suspected endocrine disorder; Z13.89 Encounter for screening for other disorder

== ENCOUNTER 2022-05-28 12:29 | Emergency (ER) | payer MEDICARE, OTHER ==
[~2022-05-28] VITALS: Wt 102.1 kg
[~2022-05-28 12:29] MED LIST changes: +FENOFIBRATE48 M1 PO; +PRAVASTATIN SOD80 MG PO; +ROPINIROLE HYDRO1 MG PO
[2022-05-28 12:32] VITALS: BP 140/80
== END 2022-05-28 13:38 | disposition home or self-care (01) ==
LOC: ED 12:29
DX: S61.011A Laceration without foreign body of right thumb without damage to nail, initial encounter (principal); Z88.0 Allergy status to penicillin; Z88.1 Allergy status to other antibiotic agents; Z88.8 Allergy status to other drugs, medicaments and biological substances; Z79.899 Other long term (current) drug therapy; W45.8XXA Other foreign body or object entering through skin, initial encounter; Y93.89 Activity, other specified; Y92.89 Other specified places as the place of occurrence of the external cause; Y99.8 Other external cause status

== ENCOUNTER → 2022-06-01 | Outpatient (CLI) | payer MEDICARE, OTHER | END | disposition home or self-care (01) | LOC: WOUNDCARE 03:03 | PROVIDERS: ATTEND Nurse Practitioner Family | DX: S61.011A Laceration without foreign body of right thumb without damage to nail, initial encounter (principal); E11.9 Type 2 diabetes mellitus without complications; I11.9 Hypertensive heart disease without heart failure; J44.9 Chronic obstructive pulmonary disease, unspecified; Z87.891 Personal history of nicotine dependence; Z95.5 Presence of coronary angioplasty implant and graft; X58.XXXA Exposure to other specified factors, initial encounter; Y93.89 Activity, other specified; Y92.89 Other specified places as the place of occurrence of the external cause; Y99.8 Other external cause status ==

== ENCOUNTER → 2023-01-17 | Outpatient (CLI) | payer MEDICARE, OTHER | END | disposition home or self-care (01) | LOC: LAB 15:41 | PROVIDERS: ATTEND Internal Medicine | DX: I10 Essential (primary) hypertension (principal) ==

== ENCOUNTER → 2023-01-18 | Outpatient (CLI) | payer MEDICARE, OTHER | END | disposition home or self-care (01) | LOC: LAB 15:38 | PROVIDERS: ATTEND Internal Medicine | DX: I10 Essential (primary) hypertension (principal); F41.1 Generalized anxiety disorder ==

== ENCOUNTER → 2023-01-20 | Outpatient (CLI) | payer MEDICARE, OTHER | END | disposition home or self-care (01) | LOC: CT 01:07 | PROVIDERS: ATTEND Internal Medicine | DX: R07.89 Other chest pain (principal); K76.0 Fatty (change of) liver, not elsewhere classified; N62 Hypertrophy of breast; I25.10 Atherosclerotic heart disease of native coronary artery without angina pectoris; I51.7 Cardiomegaly; I70.0 Atherosclerosis of aorta; M47.894 Other spondylosis, thoracic region ==

== ENCOUNTER → 2023-01-24 | Outpatient (CLI) | payer MEDICARE, OTHER | END | disposition home or self-care (01) | LOC: LAB 15:00 | PROVIDERS: ATTEND Internal Medicine | DX: S80.262A Insect bite (nonvenomous), left knee, initial encounter (principal); W57.XXXA Bitten or stung by nonvenomous insect and other nonvenomous arthropods, initial encounter; Y93.89 Activity, other specified; Y92.89 Other specified places as the place of occurrence of the external cause; Y99.8 Other external cause status ==

== ENCOUNTER → 2023-03-02 | Outpatient (CLI) | payer MEDICARE, OTHER ==
[2023-03-02 12:36] LABS: BASO % 0.5 % (0.0-1.0); EOS % 0.5 % (1.0-4.0); HEMATOCRIT 38.7 % (42.0-52.0); LYMPH # 2.2 10*3/uL (1.3-4.4); LYMPH % 26.9 % (27.0-41.0); MEAN CELL VOLUME 91.1 fl (80.0-94.0); MEAN CORPUSCULAR HGB 29.2 pg (27.0-31.0); MEAN PLATELET VOLUME 9.2 fl (9.6-12.3); MONO # 0.6 10*3/uL (0.1-1.0); MONO % 6.7 % (3.0-9.0); NEUT # 5.3 10*3/uL (2.3-7.9); NEUT % 64.7 % (47.0-73.0); PLATELET COUNT AUTOMATED 289 10*3/uL (130-400); RED BLOOD COUNT 4.25 10*6/uL (4.50-5.90); RED CELL DISTRI WIDTH 15.9 % (0-14.5); WHITE BLOOD COUNT 8.2 10*3/uL (4.8-10.8)
== END | disposition home or self-care (01) ==
LOC: LAB 12:13
PROVIDERS: ATTEND Orthopaedic Surgery
DX: M54.50 Low back pain, unspecified (principal)

== ENCOUNTER 2023-08-01 11:49 | Emergency (ER) | payer MEDICARE, OTHER ==
[~2023-08-01] VITALS: Ht 177.8 cm; Wt 98.0 kg
[2023-08-01 12:11] VITALS: BP 143/75
[2023-08-01 12:46] LABS: BASO % 0.7 % (0.0-1.0); EOS # 0.2 10*3/uL (0.0-0.4); EOS % 3.4 % (1.0-4.0); HEMATOCRIT 40.4 % (42.0-52.0); LYMPH # 2.4 10*3/uL (1.3-4.4); LYMPH % 40.6 % (27.0-41.0); MEAN CELL VOLUME 94.8 fl (80.0-94.0); MEAN CORPUSCULAR HGB CONC 31.7 g/dl (33.0-37.0); MEAN PLATELET VOLUME 9.6 fl (9.6-12.3); MONO # 0.5 10*3/uL (0.1-1.0); MONO % 7.8 % (3.0-9.0); NEUT # 2.8 10*3/uL (2.3-7.9); NEUT % 47.3 % (47.0-73.0); PLATELET COUNT AUTOMATED 271 10*3/uL (130-400); RED BLOOD COUNT 4.26 10*6/uL (4.50-5.90); RED CELL DISTRI WIDTH 14.4 % (0-14.5); WHITE BLOOD COUNT 5.9 10*3/uL (4.8-10.8)
[2023-08-01 12:58] LABS: ACT PARTIAL THROMBO TIME 25.9 SECONDS (20.0-32.1)
[2023-08-01 13:10] LABS: ALKALINE PHOSPHATASE 99 U/L (46-116); BUN 11 mg/dl (9-23); CHLORIDE 107 mmol/L (98-107); LIPASE 46 U/L (12-53); POTASSIUM 4.3 mmol/L (3.4-5.1); SGPT/ALT 14 U/L (5-49)
[2023-08-01 13:28] LABS: BILIRUBIN Negative (Negative); BLOOD Negative (Negative); CLARITY Clear (Clear); COLOR Yellow (Yellow); GLUCOSE Negative (Negative); KETONE Negative (Negative); LEUKO ESTERASE Negative (Negative); NITRITE Negative (Negative); UROBILINOGEN 0.2 E.U./dl (0.0-1.0)
[2023-08-01 13:39] LABS: EPITHELIAL CELLS 0-2; RBC 0-2 rbc/hpf (0-2)
[2023-08-01 13:40] LABS: BACTERIA TRACE
== END 2023-08-01 15:09 | disposition home or self-care (01) ==
LOC: ED 11:49
PROVIDERS: Internal Medicine
DX: R07.89 Other chest pain (principal); Z20.822 Contact with and (suspected) exposure to COVID-19; R53.1 Weakness; J44.9 Chronic obstructive pulmonary disease, unspecified; I10 Essential (primary) hypertension; F41.9 Anxiety disorder, unspecified; E11.9 Type 2 diabetes mellitus without complications; I25.2 Old myocardial infarction; Z88.8 Allergy status to other drugs, medicaments and biological substances; Z88.0 Allergy status to penicillin; Z98.890 Other specified postprocedural states

== ENCOUNTER → 2023-08-02 | Outpatient (CLI) | payer MEDICARE, OTHER | LOC: CARD 14:27 | PROVIDERS: ATTEND Internal Medicine Cardiovascular Disease | DX: I51.7 Cardiomegaly (principal); I50.22 Chronic systolic (congestive) heart failure; I25.5 Ischemic cardiomyopathy; I51.89 Other ill-defined heart diseases ==

== ENCOUNTER → 2024-01-02 | Outpatient (CLI) | payer MEDICARE, OTHER ==
[2024-01-02 12:09] LABS: BASO # 0.1 10*3/uL (0.0-0.1); BASO % 0.6 % (0.0-1.0); EOS # 0.1 10*3/uL (0.0-0.4); EOS % 1.7 % (1.0-4.0); HEMATOCRIT 41.1 % (42.0-52.0); LYMPH # 2.8 10*3/uL (1.3-4.4); LYMPH % 35.6 % (27.0-41.0); MEAN CELL VOLUME 92.2 fl (80.0-94.0); MEAN CORPUSCULAR HGB 30.7 pg (27.0-31.0); MEAN CORPUSCULAR HGB CONC 33.3 g/dl (33.0-37.0); MEAN PLATELET VOLUME 10.3 fl (9.6-12.3); MONO # 0.4 10*3/uL (0.1-1.0); MONO % 5.7 % (3.0-9.0); NEUT # 4.4 10*3/uL (2.3-7.9); PLATELET COUNT AUTOMATED 256 10*3/uL (130-400); RED BLOOD COUNT 4.46 10*6/uL (4.50-5.90); RED CELL DISTRI WIDTH 14.6 % (0-14.5); WHITE BLOOD COUNT 7.8 10*3/uL (4.8-10.8)
[2024-01-02 12:48] LABS: ALKALINE PHOSPHATASE 72 U/L (46-116); BUN 14 mg/dl (9-23); CHLORIDE 106 mmol/L (98-107); CHOLESTEROL 197 mg/dL (<200); FREE T4 1.01 ng/dl (0.89-1.76); LDL CHOLESTEROL 125 mg/dL (9-159); POTASSIUM 4.2 mmol/L (3.4-5.1); SGPT/ALT 16 U/L (5-49); TOTAL PROTEIN 6.8 gm/dL (6.0-8.0); TRIGLYCERIDES 117 mg/dl (<150)
[2024-01-02 12:50] LABS: VITAMIN D, 25-HYDROXY 33.8 ng/mL (30-100)
== END ==
LOC: LAB 11:10
PROVIDERS: ATTEND Internal Medicine
DX: Z12.5 Encounter for screening for malignant neoplasm of prostate (principal); E78.1 Pure hyperglyceridemia; I10 Essential (primary) hypertension; J44.9 Chronic obstructive pulmonary disease, unspecified

== ENCOUNTER → 2024-01-05 | Outpatient (CLI) | payer MEDICARE, OTHER | END | disposition home or self-care (01) | LOC: LAB 15:16 | PROVIDERS: ATTEND Internal Medicine | DX: Z13.0 Encounter for screening for diseases of the blood and blood-forming organs and certain disorders involving the immune mechanism (principal); Z13.1 Encounter for screening for diabetes mellitus; Z13.21 Encounter for screening for nutritional disorder; Z13.220 Encounter for screening for lipoid disorders; Z13.228 Encounter for screening for other metabolic disorders; Z13.89 Encounter for screening for other disorder; Z13.9 Encounter for screening, unspecified ==

== ENCOUNTER → 2024-11-06 | Outpatient (CLI) | payer MEDICARE, OTHER ==
[~2024-11-06] MED LIST changes: +ENTRESTO 49 MG1 EACH PO; -ENTRESTO 97 MG1 EACH PO; +MIRTAZAPINE7.5 MG PO; +PANTOPRAZOLE SO40 MG PO; +VIBRA-TAB100 MG PO; +ZANAFLEX CAPSULE2 MG PO
[2024-11-06 11:22] LABS: CHOLESTEROL 205 mg/dL (<200); LDL CHOLESTEROL 124 mg/dL (9-159); TRIGLYCERIDES 194 mg/dl (<150)
== END | disposition home or self-care (01) ==
LOC: LAB 10-30 02:00
PROVIDERS: ATTEND Internal Medicine Cardiovascular Disease
DX: E78.1 Pure hyperglyceridemia (principal)

== ENCOUNTER 2024-12-25 12:25 | Emergency (ER) | payer MEDICARE, OTHER ==
[~2024-12-25] VITALS: Ht 177.8 cm; Wt 100.7 kg
[2024-12-25 12:34] VITALS: BP 129/81
[2024-12-25] MEDS ORDERED: Acetaminophen/Oxycodone 5 MG/325 MG TABLET PO ONE (15:40)
[2024-12-25] MEDS ORDERED: Tdap Vaccine 0.5 ML SYR (Adult Vaccine) IM ONE (15:40)
[2024-12-25] MEDS ORDERED: MELOXICAM15 MG PO (15:59)
== END 2024-12-25 16:16 | disposition home or self-care (01) ==
LOC: ED 12:25
DX: S01.01XA Laceration without foreign body of scalp, initial encounter (principal); M54.2 Cervicalgia; M54.6 Pain in thoracic spine; Z88.0 Allergy status to penicillin; Z88.8 Allergy status to other drugs, medicaments and biological substances; Z88.1 Allergy status to other antibiotic agents; Z79.899 Other long term (current) drug therapy; W18.09XA Striking against other object with subsequent fall, initial encounter; Y93.89 Activity, other specified; Y92.89 Other specified places as the place of occurrence of the external cause; Y99.8 Other external cause status

== ENCOUNTER → 2025-01-02 | Outpatient (CLI) | payer MEDICARE, OTHER ==
[~2025-01-02] MED LIST changes: +MELOXICAM15 MG PO
== END | disposition home or self-care (01) ==
LOC: WOUNDCARE 01:32
PROVIDERS: ATTEND Nurse Practitioner Family
DX: S01.91XA Laceration without foreign body of unspecified part of head, initial encounter (principal); I10 Essential (primary) hypertension; E11.9 Type 2 diabetes mellitus without complications; J44.9 Chronic obstructive pulmonary disease, unspecified; Z87.891 Personal history of nicotine dependence; Z98.890 Other specified postprocedural states; Z79.899 Other long term (current) drug therapy; X58.XXXA Exposure to other specified factors, initial encounter; Y93.89 Activity, other specified; Y92.89 Other specified places as the place of occurrence of the external cause; Y99.8 Other external cause status

== ENCOUNTER → 2025-03-07 | Outpatient (CLI) | payer MEDICARE, OTHER | END | disposition home or self-care (01) | LOC: US 04:33 | PROVIDERS: ATTEND Internal Medicine Cardiovascular Disease | DX: I70.213 Atherosclerosis of native arteries of extremities with intermittent claudication, bilateral legs (principal); I25.5 Ischemic cardiomyopathy ==